=== PATIENT | female | born 1955 | race Caucasian/White ===

== ENCOUNTER → 2018-02-07 08:48 | Outpatient (CLI) | payer MEDICAID, SELFPAY ==
--- NOTE | 2018-02-07 08:54 | BI_ITS ---
MAMMOGRAPHY - BILATERAL SCREENING REASON FOR EXAM: Female, 62 years old. Routine annual screening examination. PERTINENT HISTORY: Non-contributory. TECHNIQUE: Digital bilateral breast cande (3D mammographic acquisition) in the CC and MLO projections. 2-D mediolateral oblique (MLO) and craniocaudad (CC) views of both breasts were obtained. CAD: Full Field Digital Mammography with Computer Added Detection was performed. COMPARISON: Comparison is made with prior study dated December 28, 2016 and December 18, 2015. FINDINGS: Breast Composition: There are scattered areas of fibroglandular density. There are no dominant masses or suspicious calcifications. Stable asymmetry of breast tissue where more breast tissue is seen in the right breast as compared to the left. Stable 4 mm benign-appearing lymph node in the inferior medial portion of the left breast. No other significant abnormalities are identified. There has been no significant change since the prior study. BI/SCREENING MAMM (CAD), BILAT IMPRESSION: Stable bilateral screening mammogram. Yearly follow-up mammogram recommended. (A) ASSESSMENT CATEGORY: BIRADS Category 2: Benign. A letter regarding these results will be sent to the patient by the facility within 30 days. Approximately 10% of breast cancers are not detected by mammography. A normal mammogram should not delay biopsy of a clinically suspicious abnormality. [id number] Electronically Signed: Chavo Larios MD at 10:47 EDT Tel [phone], Service support ,
== END ==
DX: Z12.31 Encounter for screening mammogram for malignant neoplasm of breast (principal)
CPT/HCPCS: 77063; 77067

== ENCOUNTER 2019-01-07 13:00 | Emergency (ER) | payer MEDICAID, SELFPAY ==
[2019-01-07 13:02] VITALS: BP 123/69; PULSE 90; RESP 14; TEMP 36.9; O2SAT 98; BMI 21.9
--- NOTE | 2019-01-07 13:17 | ED.VISSUMM ---
- ER Visit Summary Date of Service: 01/07/19 Chief Complaint: Right eye History of Present Illness: The patient is a 63 F who woke this morning with no complaints. Her family noticed that the medial aspect of her left eye was bright red. She went to urgent care and was referred to the emergency department. Patient denies any significant coughing sneezing straining or any known trauma. She does not wear corrective lenses or glasses. She states that she did not have any change in her vision until after she was told her eye was red. And now she states that she cannot describe what her vision changes just that it seems like something is on the medial aspect of her eye. There are no visual field cuts. She is not on blood thinners. Physical Examination: Afebrile vital signs are stable Gen: Well-nourished well-developed Head: Normocephalic atraumatic Eyes: Perrl EOMI there is no hyphema. There is a small subconjunctival hemorrhage just medial to the cornea. Funduscopic exam is normal. There is no other conjunctival injection or exudate seen. Anterior chamber is deep and quiet ENT: TMs clear no rhinorrhea moist mucous membranes Neck: Supple no lymphadenopathy no JVD nontender CVS: Regular rate rhythm no murmurs normal S1-S2 Respiratory: No distress clear to auscultation bilaterally chest nontender Abdomen: Soft nontender nondistended normal bowel sounds no masses Back: Nontender Extremity: Nontender no edema Skin: Normal color no rash Neuro: alert orientated ?3 CN II-XII intact normal strength sensation reflexes gait cerebellar Psych: Normal affect normal mood Test Results: Not indicated Emergency Department Course and Treatment: Patient be discharged home with supportive care. Return if worsening or concerns. Impression: 1. Left subconjunctival hemorrhage This note was generated with [employer] dictation software. It may contain incorrect words, spelling, and punctuation that were not noted in review of the chart prior to signing ED Disposition - Plan for ED Patient: Disposition: Home or Assisted Living Instructions: ED Eye Injury Subconj Hemorrhage Referrals: Eunice Mccarty [Primary Care Provider] - As Needed
--- NOTE | 2019-01-07 13:31 | ED.RN ---
DISCHARGE INSTRUCTIONS GIVEN TO AND REVIEWED WITH PATIENT, PATIENT DENIES QUESTIONS OR CONCERNS AND VOICES UNDERSTANDING OF DISCHARGE INSTRUCTIONS. PT AMBULATES OUT OF ROOM WITHOUT DIFFICULTY.
== END 2019-01-07 13:31 | disposition home or self-care (01) ==
PROVIDERS: Emergency Provider Emergency Medicine
DX: H11.32 Conjunctival hemorrhage, left eye (principal); E11.9 Type 2 diabetes mellitus without complications; I10 Essential (primary) hypertension; K21.9 Gastro-esophageal reflux disease without esophagitis; Z79.84 Long term (current) use of oral hypoglycemic drugs; Z79.899 Other long term (current) drug therapy
CPT/HCPCS: 99282

== ENCOUNTER 2019-02-16 08:40 | Emergency (ER) | payer MEDICAID, SELFPAY ==
[2019-02-16 08:42] VITALS: BP 115/68; PULSE 73; RESP 18; TEMP 35.9; O2SAT 98; BMI 20.9
--- NOTE | 2019-02-16 08:51 | CT_ITS ---
STUDY: CT BRAIN WITHOUT CONTRAST REASON FOR EXAM: Female, 63 years old. Neck pain and headache after trauma RADIATION DOSAGE (If Supplied By Facility): CTDIvol = ( 44.99 ) mGy, DLP = ( 779.24 ) mGycm TECHNIQUE: Transaxial CT imaging of the brain was performed without administration of intravenous contrast material. Individualized dose optimization techniques were used for this CT. COMPARISON: No relevant priors. FINDINGS: Normal soft tissue structures. Normal calvarium. Normal size ventricles and extra-axial spaces for the patient's age. Normal white matter tracts of the cerebral hemispheres. Normal basal ganglia and thalami. Normal brainstem. Normal cerebellum. There is no intracranial hemorrhage. There are no findings of an acute ischemic infarction. Normal visualized paranasal sinuses. CT/Brain/Head without Contrast IMPRESSION: Chronic involutional changes of the brain. No acute findings Electronically Signed: Jos Melendez MD at 10:15 EDT , Service support ,
--- NOTE | 2019-02-16 08:53 | CT_ITS ---
STUDY: CT CERVICAL SPINE WITHOUT CONTRAST REASON FOR EXAM: Female, 63 years old. Headache and neck pain after trauma RADIATION DOSAGE (If Supplied By Facility): CTDIvol = ( 16.74 ) mGy, DLP = ( 385.78 ) mGycm TECHNIQUE: High resolution transaxial imaging was performed without contrast material. Sagittal and coronal images were reconstructed. Individualized dose optimization techniques were used for this CT. COMPARISON: None FINDINGS: Normal craniovertebral junction. Normal anterior atlantoaxial articulation. Normal odontoid process. There is straightening of the normal cervical lordosis. There are sclerotic endplate changes throughout the C-spine. There is anatomic alignment of the cervical spine. No demonstrated fracture. Intervertebral disc space narrowing noted throughout the C-spine. No central canal stenosis, there is bilateral foraminal narrowing. Normal visualized soft tissue structures. No upper rib fracture or pneumothorax CT/Spine Cervical without Contras IMPRESSION: Multilevel degenerative changes, as described above. Electronically Signed: Jos Melendez MD at 10:23 EDT , Service support ,
--- NOTE | 2019-02-16 09:07 | ED.DCSUM_ITS ---
- ER Visit Summary Date of Service: 02/16/19 Chief Complaint: Nausea, vomiting, abdominal pain, neck pain History of Present Illness: The patient is a 63 F who presents with neck pain, nausea, and vomiting. Patient states that she was trying to throw something into a dumpster yesterday when the lid came down and hit her on top of the head. She developed neck pain yesterday afternoon. She will get for him this morning with nausea, vomiting, and diarrhea. She reports some mid abdominal pain. She reports chills but no fever. Past history significant for reflux disease, diabetes, high cholesterol, hypothyroidism. Physical Examination: Vital signs are unremarkable. Patient sitting upright in bed in no acute distress. She is nontoxic appearing. Head and neck examination reveals no obvious external sign of trauma. She does have mild C-spine tenderness. Heart is regular rate and rhythm. Lung sounds are clear. Abdomen is soft with no focal tenderness. Hypoactive bowel sounds are noted. Test Results: CBC is unremarkable. Chemistry studies are markable only for glucose of 188. LFTs and lipase normal. Urinalysis only significant for [address] head and C-spine show chronic changes but no acute findings. Emergency Department Course and Treatment: Patient was given IV fluids and Zofran. After completion of her CT images she is given a dose of IV Toradol. At this time patient is able to tolerate p.o. She does feel improved. She will be given Zofran for home. Treatment Plan: [] Disposition: Discharge Impression: 1. Vomiting, improved 2. Cervical strain This note was generated with Ale[employer] dictation software. It may contain incorrect words, spelling, and punctuation that were not noted in review of the chart prior to signing ED Disposition - Plan for ED Patient: Disposition: Home or Assisted Living Instructions: ED Nausea Vomiting, ED Sprain Strain Neck Prescriptions: Ondansetron [Zofran Odt] 4 mg PO Q8H PRN PRN #10 tablet PRN Reason: Nausea Ketorolac [Toradol] 10 mg PO Q6H PRN #12 tablet PRN Reason: Pain Referrals: [facility] Crys,Eunice Peralta [Primary Care Provider] - 1 Week
[2019-02-16 09:21] LABS: Absolute Lymphocyte Count 0.88 X10^3/ul (0.83-4.51); Absolute Neutrophil Count 7.5 X10^3/uL (2.0-7.7); Basophil# 0.01 X10^3/uL; Basophil% 0.1 % (0-1); Eosinophil# 0.06 X10^3/uL; Eosinophils% 0.7 % (0-5); Hematocrit 35.2 % (37-47); Lymphocyte # 0.88 X10^3/ul (4.0); Lymphocyte % 10.2 % (19-41); Mean Corp Hgb Conc 34.1 g/gl (32-36); Mean Corpuscular Hgb 30.7 pg (27.0-32.0); Mean Platelet Vol. 9.2 fl (6.2-12.0); Monocyte# 0.23 X10^3/uL; Monocyte% 2.7 % (0-10); Neutrophil # 7.45 X10^3/uL (2.7-7.7); Neutrophil % 86.1 % (47-70); POSITIVE COUNT NO; POSITIVE DIFFERENTIAL NO; POSITIVE MORPHOLOGY NO; Platelet Count 181 K/mm3 (150-450); RBC Distribution Width CV 11.7 % (11.6-14.6); RBC Distribution Width SD 38.2 fl (35.1-43.9); Red Blood Count 3.91 M/mm3 (4.2-5.4); White Blood Count 8.7 K/mm3 (4.4-11.0)
[2019-02-16 09:36] LABS: AST(SGOT) 23 U/L (15-37); Alanine Aminotransfer ALT/SGPT 21 U/L (13-56); Albumin, Serum 4.2 g/dL (3.2-5.0); Alkaline Phosphatase 107 U/L (45-117); Anion Gap 7 (5-15); BUN 17 mg/dL (7-18); Bilirubin, Direct 0.18 mg/dL (0.00-0.30); Calcium,Total 9.5 mg/dL (8.5-10.1); Chloride 99 mmol/L (98-107); Creatinine, Serum 1.06 mg/dL (0.55-1.02); EST Glomerular Filtration Rate 56 mL/min (>60); Est Glom Filt Rate - Afr Amer 67 mL/min (>60); Estimated Creatinine Clearance 48.88 ml/min; Globulin 3.4 g/dL (2.2-4.2); Glucose 188 mg/dL (74-106); Lipase 134 U/L (73-393); Potassium 4.2 mmol/L (3.5-5.1); Protein, Total 7.6 g/dL (6.4-8.2); Sodium Level 134 mmol/L (136-145)
[2019-02-16 09:53] LABS: Mucous, Urine 0 SEEN /hpf (<or=2+); Red Blood Cells-Urine 0 SEEN /hpf (0-5); White Blood Cells 0 SEEN /hpf (0-5)
[2019-02-16 10:02] LABS: Color, Urine Yellow (Yellow); Glucose, Dipstick Normal (Normal); Ketone-Dipstick 15 mg/dl (Negative); Leukocyte Esterase-Dipstick Negative /ul (Negative); Nitrite-Dipstick Negative (Negative); Occult Blood-Urine Negative /ul (Negative); Protein-Dipstick Negative (Negative); Urine Bilirubin Dipstick Negative (Negative); Urine Clarity Clear (Clear); Urine Urobilinogen Normal (Normal); Urine pH 6.5 (5.0 - 8.0)
[2019-02-16] MEDS: Ondansetron 4 MG/2 ML Vial IV (10:03)
[2019-02-16] MEDS: 0.9% Normal Saline 1,000 ML 150 ML IV (10:03)
[2019-02-16 10:09] LABS: Bacteria RARE /hpf (None Seen); Squamous Epithelial Cells - UA 0-5 SEEN /hpf (5-10)
[2019-02-16] MEDS: Ketorolac 30 MG/ML Syringe IV (10:44)
[2019-02-16 11:32] VITALS: BP 128/70; PULSE 65; RESP 17; O2SAT 100
--- NOTE | 2019-02-16 11:33 | ED.RN ---
IV DC'ED, CATHETER INTACT, SMALL GAUZE DRESSING PLACED. DISCHARGE INSTRUCTIONS GIVEN TO AND REVIEWED WITH PATIENT, PATIENT DENIES QUESTIONS OR CONCERNS AND VOICES UNDERSTANDING OF DISCHARGE INSTRUCTIONS. PT AMBULATES OUT OF ROOM WITHOUT DIFFICULTY.
== END 2019-02-16 11:33 | disposition home or self-care (01) ==
PROVIDERS: Emergency Provider Emergency Medicine
DX: R11.2 Nausea with vomiting, unspecified (principal); S16.1XXA Strain of muscle, fascia and tendon at neck level, initial encounter; W20.8XXA Other cause of strike by thrown, projected or falling object, initial encounter; Y93.9 Activity, unspecified; Y92.9 Unspecified place or not applicable; Y99.9 Unspecified external cause status; R19.7 Diarrhea, unspecified; R10.9 Unspecified abdominal pain; E11.9 Type 2 diabetes mellitus without complications; E78.00 Pure hypercholesterolemia, unspecified; E03.9 Hypothyroidism, unspecified; K21.9 Gastro-esophageal reflux disease without esophagitis; Z79.84 Long term (current) use of oral hypoglycemic drugs; Z79.899 Other long term (current) drug therapy
CPT/HCPCS: 70450; 72125; 80048; 80076; 81001; 83690; 85025; 96361; 96374; 96375; 99284; J7030; A4216; J2405

== ENCOUNTER → 2019-03-13 07:36 | Outpatient (CLI) | payer MEDICAID, SELFPAY ==
[2019-02-16 08:42] VITALS: BMI 20.9
--- NOTE | 2019-03-13 07:38 | BI_ITS ---
MAMMOGRAPHY - BILATERAL SCREENING REASON FOR EXAM: Female, 63 years old. Routine annual screening examination. PERTINENT HISTORY: Non-contributory. History of prior right breast aspiration. TECHNIQUE: Digital bilateral breast cande (3D mammographic acquisition) in the CC and MLO projections. 2-D mediolateral oblique (MLO) and craniocaudad (CC) views of both breasts were obtained. CAD: Full Field Digital Mammography with Computer Added Detection was performed. COMPARISON: Comparison is made with prior study dated February 07, 2018 and December 28, 2016. FINDINGS: Breast Composition: There are scattered areas of fibroglandular density. There are no dominant masses or suspicious calcifications. Stable asymmetry of breast tissue where more breast tissue is seen in the right breast as compared to the left side. Stable 4 mm well-defined nodular density in the inferior medial aspect of the left breast. No other significant abnormalities are identified. There has been no significant change since the prior study. BI/SCREENING MAMM (CAD), BILAT IMPRESSION: Stable bilateral screening mammogram. Yearly follow-up mammogram recommended. (A) ASSESSMENT CATEGORY: BIRADS Category 2: Benign. A letter regarding these results will be sent to the patient by the facility within 30 days. Approximately 10% of breast cancers are not detected by mammography. A normal mammogram should not delay biopsy of a clinically suspicious abnormality. [id number] Electronically Signed: Chavo Larios, at 10:02 EDT , Service support ,
== END ==
DX: Z12.31 Encounter for screening mammogram for malignant neoplasm of breast (principal)
CPT/HCPCS: 77063; 77067

== ENCOUNTER 2019-05-04 11:05 | Emergency (ER) | payer MEDICAID, SELFPAY ==
[2019-05-04 11:06] VITALS: BP 125/70; PULSE 73; RESP 16; TEMP 36.4; O2SAT 100; BMI 21.9
[2019-05-04 11:26] LABS: Bedside Glucose 199 mg/dL (70-110)
[2019-05-04 11:28] VITALS: TEMP 36.4
[2019-05-04 11:51] LABS: Absolute Lymphocyte Count 0.83 X10^3/ul (0.83-4.51); Absolute Neutrophil Count 10.2 X10^3/uL (2.0-7.7); Basophil# 0.02 X10^3/uL; Basophil% 0.2 % (0-1); Eosinophil# 0.05 X10^3/uL; Eosinophils% 0.4 % (0-5); Hematocrit 34.7 % (37-47); Hemoglobin 11.9 g/dl (12.0-15.0); Lymphocyte # 0.83 X10^3/ul (4.0); Lymphocyte % 7.1 % (19-41); Mean Corp Hgb Conc 34.3 g/gl (32-36); Mean Corpuscular Hgb 30.9 pg (27.0-32.0); Mean Corpuscular Volume 90.1 fL (81-99); Mean Platelet Vol. 9.3 fl (6.2-12.0); Monocyte# 0.46 X10^3/uL; Neutrophil # 10.23 X10^3/uL (2.7-7.7); Platelet Count 239 K/mm3 (150-450); RBC Distribution Width CV 11.5 % (11.6-14.6); RBC Distribution Width SD 36.8 fl (35.1-43.9); Red Blood Count 3.85 M/mm3 (4.2-5.4); White Blood Count 11.6 K/mm3 (4.4-11.0)
[2019-05-04 11:53] LABS: POSITIVE COUNT NO; POSITIVE DIFFERENTIAL NO; POSITIVE MORPHOLOGY NO
[2019-05-04] MEDS: 0.9% Normal Saline 1,000 ML 1000 ML IV (12:05)
[2019-05-04] MEDS: Ondansetron 4 MG/2 ML Vial IV ×2 (12:05→13:10)
[2019-05-04 12:08] VITALS: BP 116/65; PULSE 61; RESP 15; TEMP 36.4; O2SAT 95
[2019-05-04 12:09] LABS: AST(SGOT) 24 U/L (15-37); Alanine Aminotransfer ALT/SGPT 23 U/L (13-56); Albumin, Serum 4.1 g/dL (3.2-5.0); Alkaline Phosphatase 124 U/L (45-117); Anion Gap 7 (5-15); BUN 14 mg/dL (7-18); BUN/Creat Ratio 13.2 RATIO (10-20); Bilirubin, Direct 0.13 mg/dL (0.00-0.30); Calcium,Total 9.3 mg/dL (8.5-10.1); Chloride 102 mmol/L (98-107); Creatinine, Serum 1.06 mg/dL (0.55-1.02); EST Glomerular Filtration Rate 56 mL/min (>60); Est Glom Filt Rate - Afr Amer 67 mL/min (>60); Estimated Creatinine Clearance 44.35 ml/min; Globulin 3.6 g/dL (2.2-4.2); Glucose 221 mg/dL (74-106); Lipase 103 U/L (73-393); Potassium 3.9 mmol/L (3.5-5.1); Protein, Total 7.7 g/dL (6.4-8.2); Sodium Level 135 mmol/L (136-145)
--- NOTE | 2019-05-04 12:54 | ED.DCSUM_ITS ---
- ER Visit Summary Date of Service: 05/04/19 Chief Complaint: Vomiting diarrhea History of Present Illness: The patient is a 64 F who states she was in her usual state of health this morning. She went to work after about 30 minutes began to have nausea and then vomiting. She is also had several episodes of diarrhea. No fevers. She cannot stop vomiting. She is a diabetic. He denies abdominal distention or pain. Physical Examination: Afebrile vital signs stable Gen: Well-nourished well-developed Head: Normocephalic atraumatic Eyes: Perrl EOMI ENT: TMs clear no rhinorrhea moist mucous membranes Neck: Supple no lymphadenopathy no JVD nontender CVS: Regular rate rhythm no murmurs normal S1-S2 Respiratory: No distress clear to auscultation bilaterally chest nontender Abdomen: Soft nontender nondistended normal bowel sounds no masses Back: Nontender Extremity: Nontender no edema Skin: Normal color no rash Neuro: alert orientated ?3 CN II-XII intact normal strength sensation Test Results: 11.6 white count hemoglobin 11.9. Creatinine 1.06 glucose 221. Lipase 103 liver enzymes showed alk phos 124. Emergency Department Course and Treatment: Patient was treated with IV fluids and Zofran. She is given a p.o. challenge. I suspect that this is a viral illness. I will write for Zofran at home and suggest Imodium as needed. Impression: 1. Gastroenteritis This note was generated with Kann[employer] dictation software. It may contain incorrect words, spelling, and punctuation that were not noted in review of the chart prior to signing ED Disposition - Plan for ED Patient: Instructions: GASTROENTERITIS, Viral (6y-Adult) Prescriptions: Ondansetron [Zofran Odt] 4 mg PO Q6H PRN PRN #20 tab PRN Reason: Nausea Prescription Printed Referrals: [facility] Crys,Eunice Peralta [Primary Care Provider] - As Needed
[2019-05-04 13:11] VITALS: TEMP 36.4
== END 2019-05-04 13:54 | disposition home or self-care (01) ==
LOC: ED 11:50
PROVIDERS: Emergency Provider Emergency Medicine
DX: K52.9 Noninfective gastroenteritis and colitis, unspecified (principal); E11.9 Type 2 diabetes mellitus without complications; I10 Essential (primary) hypertension; K21.9 Gastro-esophageal reflux disease without esophagitis; Z79.84 Long term (current) use of oral hypoglycemic drugs; Z79.899 Other long term (current) drug therapy
CPT/HCPCS: 80048; 80076; 82962; 83690; 85025; 96361; 96374; 96376; 99283; J7030; A4216; J2405

== ENCOUNTER → 2019-10-16 08:58 | Outpatient (CLI) | payer MEDICAID, SELFPAY ==
--- NOTE | 2019-10-16 09:06 | BD_ITS ---
STUDY: DUAL ENERGY X-RAY ABSORPTIOMETRY / DXA REASON FOR EXAM: Female, 64 years old. 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 COMPARISON: None. FINDINGS: Lumbar Spine (L1-L4): g/cm2 (1.176) / T-score (0.1) / Z-score (1.6) Findings are suggestive of normal bone density with a low fracture risk. Left Femur Total: g/cm2 (1.003) / T-score (0.0) / Z-score (1.1) Left Femoral Neck: g/cm2 (1.049) / T-score (0.1) / Z-score (1.5) Right Femur Total: g/cm2 (0.957) / T-score (-0.4) / Z-score (0.8) Right Femoral Neck: g/cm2 (1.017) / T-score (-0.2) / Z-score (1.3) BD/Dexa Bone Density Study IMPRESSION: The patient is considered normal as outlined below according to World [employer] Organization (WHO) criteria with a low fracture risk. Reference Information: The T-score is the number of standard deviations above or below the standard which is normal for young adults at their peak bone mineral density. The World Health Organization (WHO) interprets the T-scores as follows: Above -1 Normal bone density Between -1 and -2.5 Osteopenia Equal to / or below -2.5 Osteoporosis As a practical clinical guideline, osteopenia may be graded as follows: Mild -1 through -1.5 Moderate -1.6 through -2.0 Severe -2.1 through -2.4 The Z-score is the number of standard deviations above or below age-matched controls. A Z-score of less than -1.5 would be considered abnormal. References: 1. NIH Osteoporosis and Related Bone Diseases http://www.osteo.org 2. International Society for Clinical Densitometry http://www.iscd.org 3. National Osteoporosis Foundation http://www.nof.org Electronically Signed: Chavo Larios, at 15:19 EST , Service support ,
== END ==
DX: Z78.0 Asymptomatic menopausal state (principal)
CPT/HCPCS: 77080

== ENCOUNTER → 2020-03-19 07:42 | Outpatient (CLI) | payer MEDICAID, SELFPAY ==
--- NOTE | 2020-03-19 07:43 | BI_ITS ---
MAMMOGRAPHY - BILATERAL SCREENING REASON FOR EXAM: Female, 64 years old. Routine annual screening examination. PERTINENT HISTORY: Non-contributory. TECHNIQUE: Digital bilateral breast mara (3D mammographic acquisition) in the CC and MLO projections. 2-D mediolateral oblique (MLO) and craniocaudad (CC) views of both breasts were obtained. CAD: Full Field Digital Mammography with Computer Added Detection was performed. COMPARISON: Comparison is made with prior examination dated March 13, 2019 and February 07, 2018. FINDINGS: Breast Composition: There are scattered areas of fibroglandular density. There are no dominant masses or suspicious calcifications. Stable asymmetry of breast tissue were more breast tissue is seen in the right breast as compared to the left side. Stable 4 mm well-defined nodule in the deep inferior medial aspect of the left breast. No other significant abnormalities are identified. There has been no significant change since the prior study. BI/SCREEN MAMM (CAD) W/MARA BILAT IMPRESSION: Stable bilateral screening mammogram. Yearly follow-up mammogram recommended. (A) ASSESSMENT CATEGORY: BIRADS Category 2: Benign. A letter regarding these results will be sent to the patient by the facility within 30 days. Approximately 10% of breast cancers are not detected by mammography. A normal mammogram should not delay biopsy of a clinically suspicious abnormality. [id number] Electronically Signed: Chavo Larios, at 9:12 EDT , Service support ,
== END ==
DX: Z12.31 Encounter for screening mammogram for malignant neoplasm of breast (principal)
CPT/HCPCS: 77063; 77067

== ENCOUNTER → 2020-09-23 07:34 | Outpatient (CLI) | payer MEDICARE, MEDICAID, SELFPAY ==
[2020-09-23 08:08] LABS: Hematocrit 38.1 % (37-47); Hemoglobin 12.4 g/dL (12.0-15.0)
[2020-09-23 08:26] LABS: Hemoglobin A1c 7.4 % (3.8-5.6)
[2020-09-23 08:34] LABS: ALB/GLOB Ratio 1.1 RATIO (0.9-2.4); AST(SGOT) 16 U/L (15-37); Alanine Aminotransfer ALT/SGPT 19 U/L (13-56); Alkaline Phosphatase 123 U/L (45-117); Anion Gap 3 (5-15); BUN 11 mg/dL (7-18); BUN/Creat Ratio 10.3 RATIO (10-20); Calcium,Total 9.4 mg/dL (8.5-10.1); Chloride 102 mmol/L (98-107); Cholesterol 221 mg/dL (200); Creatinine, Serum 1.07 mg/dL (0.55-1.02); EST Glomerular Filtration Rate 55 mL/min (>60); Est Glom Filt Rate - Afr Amer 66 mL/min (>60); Ferritin 172 ng/mL (8-252); Free T3 2.2 pg/mL (2.18-3.98); Globulin 3.7 g/dL (2.2-4.2); Glucose 164 mg/dL (74-106); High Density Lipoprotein 94 mg/dL; Potassium 4.1 mmol/L (3.5-5.1); Protein, Total 7.7 g/dL (6.4-8.2); Sodium Level 134 mmol/L (136-145); Thyroid Stim Hormone (TSH) 4.34 uIU/mL (0.358-3.74); Triglycerides 166 mg/dL; Very Low Density Lipoprotein 33 mg/dL (5-40)
[2020-09-23 08:48] LABS: Microalbumin,Random Urine 8.5 mg/L (NO RANGE EST.); Microalbumin:Creatinine Ratio 21.9 mg/g CRE (<30 mg/g CRE)
== END ==
DX: E11.9 Type 2 diabetes mellitus without complications (principal); D64.9 Anemia, unspecified; E03.9 Hypothyroidism, unspecified; E78.2 Mixed hyperlipidemia
CPT/HCPCS: 36415; 80053; 80061; 82043; 82570; 82728; 83036; 84443; 84481; 85014; 85018

== ENCOUNTER 2020-12-06 21:21 | Inpatient (IN) | payer MEDICARE, MEDICAID, SELFPAY ==
[2020-12-06 21:22] VITALS: BP 121/73; PULSE 74; RESP 16; TEMP 36; O2SAT 99; BMI 21.2
--- NOTE | 2020-12-06 21:39 | CT_ITS ---
STUDY: CT BRAIN WITHOUT CONTRAST REASON FOR EXAM: Female, 65 years old. DIZZINESS, N/V SINCE 1800 RADIATION DOSAGE (If Supplied By Facility): CTDIvol = ( 44.99 ) mGy, DLP = ( 745.49 ) mGycm TECHNIQUE: Transaxial CT imaging of the brain was performed without administration of intravenous contrast material. Individualized dose optimization techniques were used for this CT. COMPARISON: 02/16/2019 FINDINGS: Normal soft tissue structures. Normal calvarium. Normal size ventricles and extra-axial spaces for the patient''s age. Normal white matter tracts of the cerebral hemispheres. Normal basal ganglia and thalami. Normal brainstem. Normal cerebellum. There is no intracranial hemorrhage. There are no findings of an acute ischemic infarction. Normal visualized paranasal sinuses. CT/Brain/Head without Contrast IMPRESSION: Normal unenhanced CT scan of the brain. Electronically Signed: Osbaldo Rice MD at 22:53 EST , Service support ,
--- NOTE | 2020-12-06 21:39 | EKG12_ITS ---
Test Reason : DIZZINESS Blood Pressure : / mmHG Vent. Rate : 072 BPM Atrial Rate : 072 BPM P-R Int : 166 ms QRS Dur : 084 ms QT Int : 426 ms P-R-T Axes : 051 050 050 degrees QTc Int : 466 ms Normal sinus rhythm Normal ECG Confirmed by VAISHALI LORENZO, LIDIA ([id number]), news editor BLANCA DARDEN ([id number]) on 12/08/2020 12:21:45 P M Referred By: EVI Confirmed By:GLORIA TOM MD
--- NOTE | 2020-12-06 21:40 | CT_ITS ---
STUDY: CT ABDOMEN AND PELVIS WITH CONTRAST REASON FOR EXAM: Female, 65 years old. Abdominal PAIN N/V RADIATION DOSAGE (If Supplied By Facility): CTDIvol = ( 8.62 ) mGy, DLP = ( 766.70 ) mGycm TECHNIQUE: Transaxial images were obtained from the dome of the diaphragm to the symphysis pubis without oral contrast. IV 100mL Isovue-[id number] was administered. Sagittal and coronal images were reconstructed. Individualized dose optimization techniques were used for this CT. COMPARISON: 09/26/2016. FINDINGS: The visualized lung bases are unremarkable. The visualized portions of the heart are within normal limits. Normal liver. There are surgical clips in the gallbladder fossa consistent with a prior cholecystectomy. Normal spleen. Normal pancreas. Normal bilateral adrenal glands. Normal right kidney. Normal left kidney. Evaluation of the GI tract is limited by absence of oral contrast. Moderate hiatal hernia. Cannot exclude stomach wall thickening. No dilated loops of bowel or evidence for obstruction. Cannot exclude segmental thickening of the tobias of the small or large bowel. Cannot exclude enteritis or colitis. Moderate diffuse fecal retention. Diverticulosis without definite diverticulitis. Appendix within normal limits. Normal abdominal aorta. Normal inferior vena cava. Normal retroperitoneum. Normal urinary bladder. Normal visualized uterus. Normal abdominal wall. There are diffuse degenerative changes of the visualized lumbar spine. CT/Abdomen/Pelvis W IV Cont ONLY IMPRESSION: No definite acute or significant abnormality seen. Electronically Signed: Osbaldo Rice MD at 23:05 EST , Service support ,
[2020-12-06 21:48] LABS: Absolute Lymphocyte Count 2.28 X10^3/uL (0.83-4.51); Basophil# 0.09 X10^3/uL; Basophil% 0.7 % (0-1); Eosinophil# 0.22 X10^3/uL; Eosinophils% 1.7 % (0-5); Hematocrit 35.5 % (37-47); Hemoglobin 12.4 g/dL (12.0-15.0); Lymphocyte # 2.28 X10^3/ul (4.0); Lymphocyte % 17.2 % (19-41); Mean Corp Hgb Conc 34.9 g/dL (32-36); Mean Corpuscular Hgb 31.6 pg (27.0-32.0); Mean Corpuscular Volume 90.3 fL (81-99); Mean Platelet Vol. 9.3 fl (6.2-12.0); Monocyte# 0.55 X10^3/uL; Monocyte% 4.2 % (0-10); NRBC Flagged by Analyzer 0 % (0-5); Neutrophil # 9.99 X10^3/uL (2.7-7.7); Neutrophil % 75.5 % (47-70); Platelet Count 271 K/mm3 (150-450); RBC Distribution Width CV 11.1 % (11.6-14.6); RBC Distribution Width SD 36.8 fl (35.1-43.9); Red Blood Count 3.93 M/mm3 (4.2-5.4); White Blood Count 13.2 K/mm3 (4.4-11.0)
[2020-12-06] MEDS: Ondansetron 4 MG/2 ML Vial IV (21:54)
[2020-12-06] MEDS: 0.9% Normal Saline 1,000 ML 1000 ML IV (21:54)
[2020-12-06 22:03] LABS: ALB/GLOB Ratio 1.2 RATIO (0.9-2.4); AST(SGOT) 17 U/L (15-37); Alanine Aminotransfer ALT/SGPT 18 U/L (13-56); Albumin, Serum 4.2 g/dL (3.2-5.0); Alkaline Phosphatase 108 U/L (45-117); Anion Gap 9 (5-15); BUN 13 mg/dL (7-18); BUN/Creat Ratio 11.1 RATIO (10-20); Calcium,Total 10.1 mg/dL (8.5-10.1); Chloride 103 mmol/L (98-107); Creatinine, Serum 1.17 mg/dL (0.55-1.02); EST Glomerular Filtration Rate 49 mL/min (>60); Est Glom Filt Rate - Afr Amer 60 mL/min (>60); Globulin 3.4 g/dL (2.2-4.2); Glucose 266 mg/dL (74-106); Lipase 128 U/L (73-393); Potassium 3.7 mmol/L (3.5-5.1); Protein, Total 7.6 g/dL (6.4-8.2); Sodium Level 135 mmol/L (136-145)
--- NOTE | 2020-12-06 22:31 | RAD_ITS ---
STUDY: X-RAY CHEST REASON FOR EXAM: Female, 65 years old. PT C/O DIZZINESS, N/V SINCE 1800 TECHNIQUE: Single AP portable view of the chest. COMPARISON: None. FINDINGS: The lungs are clear and expanded. There is no demonstrated pleural abnormality. Normal size heart. Normal mediastinum and meri. Normal visualized pulmonary arteries. Normal visualized aortic arch and descending thoracic aorta. Normal visualized thoracic spine. Normal visualized ribs, clavicles, and shoulders. There is no demonstrated abnormality of the visualized soft tissue structures of the upper abdomen. RAD/Chest 1 View (Portable) IMPRESSION: Normal x-ray examination of the chest. Electronically Signed: Osbaldo Rice MD at 22:53 EST , Service support ,
[2020-12-06 23:17] LABS: Mucous, Urine 0 SEEN /hpf (<or=2+); Red Blood Cells-Urine 0 SEEN /hpf (0-5)
[2020-12-06 23:19] LABS: Color, Urine Yellow (Yellow); Glucose, Dipstick 250 mg/dl (Normal); Ketone-Dipstick 5 mg/dl (Negative); Leukocyte Esterase-Dipstick 500 /ul (Negative); Nitrite-Dipstick Negative (Negative); Occult Blood-Urine Negative /ul (Negative); Protein-Dipstick 15 mg/dl (Negative); Urine Bilirubin Dipstick Negative (Negative); Urine Clarity Clear (Clear); Urine Urobilinogen Normal (Normal); Urine pH 6.5 (5.0 - 8.0)
[2020-12-06] MEDS: Meclizine HCl 25 MG Tablet PO (23:25)
[2020-12-06 23:53] LABS: Amorphous Sediment RARE; Bacteria RARE /hpf (None Seen); Hyaline Cast 0-5 SEEN /lpf (0-5); Squamous Epithelial Cells - UA 0-5 SEEN /hpf (5-10); White Blood Cells 10-25 SEEN /hpf (0-5)
[2020-12-07] VITALS (11 sets, daily range): BP systolic 98–134; BP diastolic 61–79; PULSE 66–79; RESP 16–18; TEMP 36.4–36.7; O2SAT 93–100; BMI 24.5
--- NOTE | 2020-12-07 00:44 | HP.PCM_ITS ---
History of Present Illness Date of Admission: 12/07/20 Chief Complaint: nausea, dizziness, near syncope The patient is a 65 year old with a PMH as outlined including hypertension, type 2 diabetes mellitus and hyperlipidemia. She was admitted via the ED on 12/07/2020 with a complaint of dizziness, nausea and vomiting. Symptoms started at ~ 6pm on day of admission. She said she vomited several times, and also felt very nauseous. She also had dizziness and thought she was going to pass out. She denied any fever, chills, palpitations, chest pain, abdominal pain, or diarrhea. Review of systems otherwise negative. She denied any burning with urination or frequency of urination. She denied any abdominal pain when I reviewed her, though per ED documentation, she did tell the ED doctor she had pain in her right lower abdomen. Vitals showed temp of 96.8F, BP of 121/73, SC of 74 and RR of 16. She was saturating at 99% on room air. Chemistry showed Cr of 1.17, and sodium of 135. Initial troponin was negative, and CBC shosed Hb of 12.4, and wbc of 13.2 and platelets of 271. EKG showed no acute ST changes. UA showed leucocyte esterase of 500 and 10-25 wbc, though urine bacteria were rare. She is being admitted to be managed for near syncope due to UTI.[] Past Medical History Medical History: Medical History (Last Updated 03/15/18 @ 12:41 by Dinorah Cabrera) Arthritis M19.90 Diabetes E11.9 Thyroid disease E07.9 Allergies No Known Allergies Allergy (Verified 12/06/20 21:29) Home Medications: Ambulatory Orders Medication Instructions Recorded Ascorbic Acid [Vitamin C] 500 mg PO DAILY@0800 09/26/16 Cholecalciferol (VIT D3) [Vitamin 2,000 unit PO DAILY 09/26/16 D] Ferrous Sulfate 325 mg PO BID 09/26/16 Lisinopril [Zestril] 5 mg PO DAILY 09/26/16 Loratadine 10 mg PO DAILY 09/26/16 Pravastatin [Pravachol] 20 mg PO QHS 09/26/16 metFORMIN HCl [Glucophage] 500 mg PO BIDCM 09/26/16 Famotidine 40 mg PO DAILY 12/06/20 Gabapentin 300 mg PO QHS 02/13/21 Surgical History: Surgical History (Last Updated 03/15/18 @ 12:41 by Dinorah Cabrera) History of cholecystectomy Z90.49 History of tubal ligation Z98.51 Surgical History: cholecystectomy Psychiatric History: No pertinent psych hx [employer]TAIN History: No pertinent [employer]TAIN history Lives: With Family Smoking Status: Never smoker Alcohol: None Drugs: None Review of Systems Constitutional: Reports: Malaise, Weakness, Fatigue. Denies: Anorexia, Chills, Fever, Night Sweats HEENT: Denies: Head Aches, Sinus Congestion, Sinus Drainage Cardiovascular: Denies: Chest Pain, Chest Pressure, Chest Tightness, Palpitations Respiratory: Denies: Cough, Shortness of breath at rest, Sputum production Gastrointestinal: Denies: Abdominal Pain, Nausea, Vomiting Genitourinary: Denies: Dysuria Musculoskeletal: Denies: Joint Pain, Joint Tenderness Skin: Denies: Rash, Wounds Neurological: Denies: Numbness, Tingling, Focal weakness Psychiatric: Denies: Anxiety, Depression, Homicidal Ideations, Suicidal Ideations Hematologic/ Lymphatic: Denies: Easy Bruising, Easy Bleeding VTE Information - Inpt Only VTE Present on Admission: No VTE Pharm Prophylaxis ordered?: Yes - Physical Exam Vitals/I&O's: Vital Signs Temp Pulse Resp BP Pulse Ox 96.8 F L 74 16 121/73 H 99 12/06/20 21:22 12/06/20 21:22 12/06/20 21:22 12/06/20 21:22 12/06/20 21:22 Oxygen Delivery Method Room Air Weight: 124 lb Body Mass Index (BMI) 21.2 Finger Stick Blood Glucose 199 General: Alert, Oriented x3, Cooperative, No apparent distress, Lethargic HEENT: Atraumatic, PERRLA, EOMI, Normocephalic Oral: Dry Mucosa Neck: Supple, No JVD, Negative Carotid Bruits Lungs: Clear to auscultation, Normal air movement Cardiovascular: Regular rate, Regular Rhythm, Normal S1, Normal S2, No murmurs Abdomen: Bowel Sounds Present, Soft, Non Tender, Non-Distended, No Hepato- splenomegaly Extremities: No clubbing, No cyanosis, No edema, Capillary Refill Less than 3 Seconds Skin: No rashes Musculoskeletal: No Tenderness to Palpation of Joints or Extremities Lymphatic: No Cervical, Supraclavicular, or Inguinal Adenopathy Neurological: Cranial nerves II-XII grossly intact, Neuro grossly intact, Motor Exam 5/5 strength throughout Psych/Mental Status: Normal Affect, Appropriate, Alert and oriented to time, place, person, mood and affect Laboratory Results 12/06/20 21:35: WBC 13.2 H, RBC 3.93 L, Hgb 12.4, Hct 35.5 L, MCV 90.3, MCH 31.6, MCHC 34.9, RDW Std Deviation 36.8, RDW Coeff of Kyung 11.1 L, Plt Count 271, MPV 9.3, Immature Gran % (Auto) 0.700, Neut % (Auto) 75.5 H, Lymph % (Auto) 17.2 L, [place] % (Auto) 4.2, Eos % (Auto) 1.7, Baso % (Auto) 0.7, Absolute Neuts (auto) 10.0 H, Absolute Lymphs (auto) 2.28, Nucleated RBC % 0 12/06/20 21:35: Sodium 135 L, Potassium 3.7, Chloride 103, Carbon Dioxide 23.0, Anion Gap 9, BUN 13, Creatinine 1.17 H, Estim Creat Clear Calc 41.40, Est GFR (MDRD) Af Amer 60, Est GFR (MDRD) Non-Af 49 L, BUN/Creatinine Ratio 11.1, Glucose 266 H, Calcium 10.1, Total Bilirubin 0.40, AST 17, ALT 18, Alkaline Phosphatase 108, Troponin I < 0.015, Total Protein 7.6, Albumin 4.2, Globulin 3.4, Albumin/Globulin Ratio 1.2, Lipase 128 12/06/20 23:13: Urine Color Yellow, Urine Clarity Clear, Urine pH 6.5, Ur Specific [place] 1.010, Urine Protein 15 H, Urine Glucose (UA) 250 H, Urine Ketones 5 H, Urine Occult Blood Negative, Urine Nitrite Negative, Urine Bilirubin Negative, Urine Urobilinogen Normal, Ur Leukocyte Esterase 500 H, Urine RBC 0 SEEN, Urine WBC 10-25 SEEN, Ur Squamous Epith Cells 0-5 SEEN, Amorphous Sediment RARE, Urine Bacteria RARE, Hyaline Casts 0-5 SEEN, Urine Mucus 0 SEEN Diagnostic Data Brain CT 12/06/20 21:39 IMPRESSION: Normal unenhanced CT scan of the brain. Electronically Signed: Osbaldo Rice MD at 22:53 EST , Service support , Abdomen/Pelvis CT 12/06/20 21:40 IMPRESSION: No definite acute or significant abnormality seen. Electronically Signed: Osbaldo Rice MD at 23:05 EST , Service support , Chest X-Ray 12/06/20 22:31 IMPRESSION: Normal x-ray examination of the chest. Electronically Signed: Osbaldo Rice MD at 22:53 EST , Service support , Current Medications Ceftriaxone Sodium (Rocephin) 1 gm in 50 mls @ 100 mls/hr IV X1 ONE Stop: 12/07/20 01:10 Assessment/Plan All Active Problems (Last Updated 03/15/18 @ 12:41 by Dinorah Cabrera) Physical exam (Acute) 65 y/o admitted with a complaint of nausea, vomiting and near syncope #near syncope * admit to PCU with telemetry * check orthostatics * hydrate with IVF NS @ 150cc/hr * cause of near syncope is likely due to UTI. There is no evidence of arrythmia on EKG. * PT/OT consult * fall precautions * #UTI: will check urine culture. Started on IV ceftriaxone; will continue #Type 2 diabetes mellitus * on metformin. ISS. Seda OGDENS. * #Hyperlipidemia: on statin #Hypertension: on lisinopril DVT prophylaxis: lovenox Code status; full code * Patient and daughter counseled extensively about different types of CODE STATUS including full code, DNR CCA and DNR CCA. Patient elects to be full code. * Total cxcl-ic-vyat time 17 minutes. OBSV E&M: 18562 Initial observation care L3 Procedures: 02617 Advncd Care Plan 30 Min
[2020-12-07] MEDS: Ceftriaxone 1 GM/50 ML BAG IV ×2 (01:03→22:31)
--- NOTE | 2020-12-07 01:03 | ED.VIS.GEN ---
History of Present Illness Chief Complaint: Dizziness Informant: Patient Narrative: 65-year-old female with past medical history of hypertension, diabetes, hyperlipidemia presents with dizziness and vomiting. States it began approximately 2 to 3 hours ago. States that she feels like she is going to pass out. States he gets sweaty before this happens. Denies any chest pain, shortness of breath, headache, vision change, neck pain. States that she is having some pain in her right abdomen. States it is aching and intermittent. Denies any urinary symptoms other than some slightly increased frequency. Denies any vaginal discharge or bleeding. Past Medical History - Allergies and Home Meds Allergies/Adverse Reactions: Allergies No Known Allergies Allergy (Verified 12/06/20 21:29) Prior records reviewed: Yes Past Medical History: - - HTN, HLD, and DMII Surgical History: noncontributory Lives: With Family Smoking Status: Never smoker Alcohol: None Drugs: None Review of Systems General: Denies: Chills, Fever, Sweats Eyes: Denies: Visual changes - bilaterally, Diplopia ENT: Denies: Rhinorrhea, Sore throat Cardiovascular: Denies: Chest pain, Palpitations Respiratory: Denies: Dyspnea, Cough, Dyspnea on exertion Gastrointestinal: Reports: Abdominal pain, Nausea, Vomiting. Denies: Diarrhea, Melena, Hematochezia Genitourinary: Denies: Dysuria, Hematuria, Frequency Musculoskeletal: Denies: Back pain, Extremity Pain Skin: Denies: Rash, Wounds Neurological: Reports: - - dizziness. Denies: Headache, Weakness, Numbness Physical Exam Vital Signs/Narrative: Vital Signs Temp Pulse Resp BP Pulse Ox 12/06/20 21:22 96.8 F L 74 16 121/73 H 99 General: Well nourished, Well developed, No Acute Distress Head: Normocephalic, Atraumatic Eyes: Perrl, EOMI ENT: Moist mucous membranes, No rhinorrhea Neck: Supple, Nontender Cardiovascular: Regular rate, Regular rhythm, No murmurs Respiratory: No distress, CTA bilaterally, Chest nontender Abdomen: Soft, Nontender, Nondistended, Normal bowel sounds Back: Nontender, Normal Inspection Extremities: Nontender, No edema Skin: Normal color, No rash Neurological: Alert, Oriented x3, Cranial nerves II-XII grossly intact, Normal Strength, Normal Sensation Psychological: Normal affect, Normal Mood Diagnostic/Tx/Re-eval Chest X-Ray - ED: 1 View, Read by ED Physician, Read by Radiologist, Normal Clinical Impression(s) from Imaging Studies Brain CT 12/06/20 21:39 IMPRESSION: Normal unenhanced CT scan of the brain. Electronically Signed: Osbaldo Rice MD at 22:53 EST , Service support , Abdomen/Pelvis CT 12/06/20 21:40 IMPRESSION: No definite acute or significant abnormality seen. Electronically Signed: Osbaldo Rice MD at 23:05 EST , Service support , Chest X-Ray 12/06/20 22:31 IMPRESSION: Normal x-ray examination of the chest. Electronically Signed: Osbaldo Rice MD at 22:53 EST , Service support , Laboratory Data 12/06/20 12/06/20 12/06/20 21:35 21:35 23:13 WBC 13.2 H RBC 3.93 L Hgb 12.4 Hct 35.5 L MCV 90.3 MCH 31.6 MCHC 34.9 RDW Std Deviation 36.8 RDW Coeff of [place]ung 11.1 L Plt Count 271 MPV 9.3 Immature Gran % (Auto) 0.700 Neut % (Auto) 75.5 H Lymph % (Auto) 17.2 L [place] % (Auto) 4.2 Eos % (Auto) 1.7 Baso % (Auto) 0.7 Absolute Neuts (auto) 10.0 H Absolute Lymphs (auto) 2.28 Nucleated RBC % 0 Sodium 135 L Potassium 3.7 Chloride 103 Carbon Dioxide 23.0 Anion Gap 9 BUN 13 Creatinine 1.17 H Estim Creat Clear Calc 41.40 Est GFR (MDRD) Af Amer 60 Est GFR (MDRD) Non-Af 49 L BUN/Creatinine Ratio 11.1 Glucose 266 H Calcium 10.1 Total Bilirubin 0.40 AST 17 ALT 18 Alkaline Phosphatase 108 Troponin I < 0.015 Total Protein 7.6 Albumin 4.2 Globulin 3.4 Albumin/Globulin Ratio 1.2 Lipase 128 Urine Color Yellow Urine Clarity Clear Urine pH 6.5 Ur Specific [place] 1.010 Urine Protein 15 H Urine Glucose (UA) 250 H Urine Ketones 5 H Urine Occult Blood Negative Urine Nitrite Negative Urine Bilirubin Negative Urine Urobilinogen Normal Ur Leukocyte Esterase 500 H Urine RBC 0 SEEN Urine WBC 10-25 SEEN Ur Squamous Epith Cells 0-5 SEEN Amorphous Sediment RARE Urine Bacteria RARE Hyaline Casts 0-5 SEEN Urine Mucus 0 SEEN - Medical Decision Making Patient appears well and nontoxic. Patient having intermittent vomiting. Patient given 1 L of normal saline as well as Zofran. Somewhat improved. Urine shows evidence of infection. Patient was given Rocephin. Scan of the brain negative. CT of the abdomen pelvis negative. Chest x-ray interpreted by myself shows no evidence of infiltrate or volume overload. Lab work fairly within normal limits. Troponin negative. EKG nonischemic. Patient was given meclizine with concern for possible vertigo. This did somewhat improve her but she continues to have these episodes where she gets diaphoretic and presyncopal. For that reason patient will be admitted for further treatment evaluation. Patient will be given Valium. Stable at time of admission. Impression: 1. Intractable vertigo 2. UTI ED Disposition - Plan for ED Patient: Disposition: Acute Care [facility]
[2020-12-07] MEDS: diazePAM 5 MG Tablet PO (01:05)
[2020-12-07] MEDS: 0.9% Normal Saline 1,000 ML 125 ML IV ×2 (02:58→10:59)
[2020-12-07 06:44] LABS: Absolute Lymphocyte Count 1.35 X10^3/uL (0.83-4.51); Absolute Neutrophil Count 5.1 X10^3/uL (2.0-7.7); Basophil# 0.04 X10^3/uL; Basophil% 0.6 % (0-1); Eosinophil# 0.02 X10^3/uL; Eosinophils% 0.3 % (0-5); Hematocrit 32.6 % (37-47); Hemoglobin 11.1 g/dL (12.0-15.0); Lymphocyte # 1.35 X10^3/ul (4.0); Lymphocyte % 19.9 % (19-41); Mean Corpuscular Hgb 31.3 pg (27.0-32.0); Mean Corpuscular Volume 91.8 fL (81-99); Mean Platelet Vol. 9.5 fl (6.2-12.0); Monocyte# 0.27 X10^3/uL; NRBC Flagged by Analyzer 0 % (0-5); Neutrophil # 5.06 X10^3/uL (2.7-7.7); Neutrophil % 74.6 % (47-70); Platelet Count 244 K/mm3 (150-450); RBC Distribution Width CV 11.3 % (11.6-14.6); RBC Distribution Width SD 38.4 fl (35.1-43.9); Red Blood Count 3.55 M/mm3 (4.2-5.4); White Blood Count 6.8 K/mm3 (4.4-11.0)
--- NOTE | 2020-12-07 06:57 | PCS.PANDOC ---
PANDEMIC DOCUMENTATION INITIATED: Date: 12/07/20 Time: 0090
[2020-12-07 06:58] LABS: Anion Gap 6 (5-15); BUN 10 mg/dL (7-18); BUN/Creat Ratio 9.7 RATIO (10-20); Chloride 105 mmol/L (98-107); Creatinine, Serum 1.03 mg/dL (0.55-1.02); EST Glomerular Filtration Rate 57 mL/min (>60); Est Glom Filt Rate - Afr Amer 69 mL/min (>60); Estimated Creatinine Clearance 45.04 ml/min; Glucose 234 mg/dL (74-106); Potassium 4.1 mmol/L (3.5-5.1); Sodium Level 137 mmol/L (136-145)
[2020-12-07 07:00] LABS: Bedside Glucose 227 mg/dL (70-110)
[2020-12-07] MEDS: Ondansetron 4 MG/2 ML Vial IV (09:07)
[2020-12-07] MEDS: 0.9% Saline Lock 10 ML Syringe IV ×2 (09:07→22:31)
[2020-12-07] MEDS: Famotidine 20 MG Tablet 40 MG PO (09:53)
[2020-12-07] MEDS: Loratadine 10 MG Tablet PO (09:53)
[2020-12-07] MEDS: Ferrous Sulfate 325 MG Tablet PO ×2 (09:53→16:38)
[2020-12-07] MEDS: Enoxaparin 40 MG/0.4 ML Syringe SC (09:53)
[2020-12-07] MEDS: Lisinopril 5 MG Tablet PO (09:53)
[2020-12-07] MEDS: Ascorbic Acid 500 MG Tablet PO (09:53)
[2020-12-07] MEDS: Insulin Lispro 100 UNIT/ML INSULN.PEN SC ×3 (11:42→21:41)
[2020-12-07 11:46] LABS: Bedside Glucose 174 mg/dL (70-110)
--- NOTE | 2020-12-07 12:57 | PCM.PROGNOTE ---
Subjective: Patient seen and examined. Denies further lightheadedness, dizziness, presyncope. Patient states episode of presyncope occurred during episode of nausea/vomiting. Patient states she has this intermittently as she feels food gets stuck mid abdomen. She denies swallowing difficulty however she states she can feel food get stuck as it goes down. - Physical Exam Vitals/I&O's: Vital Signs Temp Pulse Resp BP Pulse Ox 97.9 F 70 18 134/66 H 96 12/07/20 09:48 12/07/20 09:48 12/07/20 09:48 12/07/20 09:48 12/07/20 09:48 Oxygen Delivery Method Room Air Weight: 138 lb 7.205 oz Body Mass Index (BMI) 24.5 Finger Stick Blood Glucose 199 Orthostatic Vital Signs Start: 12/07/20 02:40 Freq: q24h Status: Active Protocol: Activity Type Activity Date Activity User E-Sign Co-Sign Detail Recorded Client Recorded Date Recorded By Document 12/07/20 02:40 MY [id number] 12/07/20 06:29 MY 12/07/20 02:40 Orthostatic Vitals Standing -Blood Pressure (90/60-120/80) 114/70 -Extremity Use Right Arm -Pulse Rate (60-100) 78 Sitting -Blood Pressure (90/60-120/80) 119/67 -Extremity Use Right Arm -Pulse Rate (60-100) 74 Lying -Blood Pressure (90/60-120/80) 108/61 -Extremity Use Right Arm -Pulse Rate (60-100) 69 Intake and Output for Last 24 Hours 12/05/20 12/06/20 12/07/20 23:59 23:59 23:59 Intake Total 2350 / 2350 Balance 2350 / 2350 General: Alert, Oriented x3, Cooperative HEENT: Atraumatic, PERRLA, EOMI, Normocephalic Neck: Supple, No JVD, Negative Carotid Bruits Lungs: Clear to auscultation, Normal air movement Cardiovascular: Regular rate, No murmurs Abdomen: Bowel Sounds Present, Soft, Non Tender, Non-Distended Extremities: No clubbing, No cyanosis, No edema, Capillary Refill Less than 3 Seconds Skin: No rashes, No breakdown Musculoskeletal: No Tenderness to Palpation of Joints or Extremities Neurological: Cranial nerves II-XII grossly intact, Neuro grossly intact Psych/Mental Status: Normal Affect, Appropriate Laboratory Results 12/06/20 21:35: WBC 13.2 H, RBC 3.93 L, Hgb 12.4, Hct 35.5 L, MCV 90.3, MCH 31.6, MCHC 34.9, RDW Std Deviation 36.8, RDW Coeff of Kyung 11.1 L, Plt Count 271, MPV 9.3, Immature Gran % (Auto) 0.700, Neut % (Auto) 75.5 H, Lymph % (Auto) 17.2 L, [place] % (Auto) 4.2, Eos % (Auto) 1.7, Baso % (Auto) 0.7, Absolute Neuts (auto) 10.0 H, Absolute Lymphs (auto) 2.28, Nucleated RBC % 0 12/06/20 21:35: Sodium 135 L, Potassium 3.7, Chloride 103, Carbon Dioxide 23.0, Anion Gap 9, BUN 13, Creatinine 1.17 H, Estim Creat Clear Calc 41.40, Est GFR (MDRD) Af Amer 60, Est GFR (MDRD) Non-Af 49 L, BUN/Creatinine Ratio 11.1, Glucose 266 H, Calcium 10.1, Total Bilirubin 0.40, AST 17, ALT 18, Alkaline Phosphatase 108, Troponin I < 0.015, Total Protein 7.6, Albumin 4.2, Globulin 3.4, Albumin/Globulin Ratio 1.2, Lipase 128 12/06/20 23:13: Urine Color Yellow, Urine Clarity Clear, Urine pH 6.5, Ur Specific [place] 1.010, Urine Protein 15 H, Urine Glucose (UA) 250 H, Urine Ketones 5 H, Urine Occult Blood Negative, Urine Nitrite Negative, Urine Bilirubin Negative, Urine Urobilinogen Normal, Ur Leukocyte Esterase 500 H, Urine RBC 0 SEEN, Urine WBC 10-25 SEEN, Ur Squamous Epith Cells 0-5 SEEN, Amorphous Sediment RARE, Urine Bacteria RARE, Hyaline Casts 0-5 SEEN, Urine Mucus 0 SEEN 12/07/20 05:51: WBC 6.8, RBC 3.55 L, Hgb 11.1 L, Hct 32.6 L, MCV 91.8, MCH 31.3, MCHC 34.0, RDW Std Deviation 38.4, RDW Coeff of Kyung 11.3 L, Plt Count 244, MPV 9.5, Immature Gran % (Auto) 0.600, Neut % (Auto) 74.6 H, Lymph % (Auto) 19.9, [place] % (Auto) 4.0, Eos % (Auto) 0.3, Baso % (Auto) 0.6, Absolute Neuts (auto) 5.1, Absolute Lymphs (auto) 1.35, Nucleated RBC % 0 12/07/20 05:51: Sodium 137, Potassium 4.1, Chloride 105, Carbon Dioxide 26.0, Anion Gap 6, BUN 10, Creatinine 1.03 H, Estim Creat Clear Calc 45.04, Est GFR (MDRD) Af Amer 69, Est GFR (MDRD) Non-Af 57 L, BUN/Creatinine Ratio 9.7 L, Glucose 234 H, Calcium 9.0 12/07/20 06:35: POC Glucose 227 H 12/07/20 11:41: POC Glucose 174 H Current Medications Acetaminophen (Acetaminophen 325 Mg Tablet) 650 mg PO Q6H PRN PRN PRN Reason: Pain Score 1-10/Temp > 100.7 F Ascorbic Acid (Ascorbic Acid 500 Mg Tablet) 500 mg PO DAILY@0800 [facility] Last Admin: 12/07/20 09:53 Dose: 500 mg Documented by: Cholecalciferol (Cholecalciferol (Vit D3) 1,000 Unit (25mcg)) 2,000 unit PO DAILY [facility] Last Admin: 12/07/20 09:53 Dose: 2,000 unit Documented by: Enoxaparin Sodium (Enoxaparin 40 Mg/0.4 Ml Syringe) 40 mg SC DAILY [facility] Last Admin: 12/07/20 09:53 Dose: 40 mg Documented by: Famotidine (Famotidine 20 Mg Tablet) 40 mg PO DAILY [facility] Last Admin: 12/07/20 09:53 Dose: 40 mg Documented by: Ferrous Sulfate (Ferrous Sulfate 325 Mg Tablet) 325 mg PO BIDCM [facility] Last Admin: 12/07/20 09:53 Dose: 325 mg Documented by: Gabapentin (Gabapentin 300 Mg Capsule) 300 mg PO QHS [facility] Sodium Chloride () 1,000 mls @ 125 mls/hr IV .Q8H [facility] Stop: 12/07/20 18:28 Last Admin: 12/07/20 10:59 Dose: 125 mls/hr Documented by: Ceftriaxone Sodium (Rocephin) 1 gm in 50 mls @ 100 mls/hr IV Q24H [facility] Insulin Human Lispro (Insulin Lispro 100 Unit/Ml Insuln.Pen) 0 unit SC ACHS [facility]; Protocol Last Admin: 12/07/20 11:42 Dose: 1 u Documented by: Lisinopril (Lisinopril 5 Mg Tablet) 5 mg PO DAILY [facility] Last Admin: 12/07/20 09:53 Dose: 5 mg Documented by: Loratadine (Loratadine 10 Mg Tablet) 10 mg PO DAILY [facility] Last Admin: 12/07/20 09:53 Dose: 10 mg Documented by: Metformin HCl (Metformin Hcl 500 Mg Tablet) 500 mg PO BIDCM [facility] Last Admin: 12/07/20 09:55 Dose: Not Given Documented by: Morphine Sulfate (Morphine 2 Mg/Ml Syringe) 2 mg IV Q3H PRN PRN PRN Reason: Pain Score 6-10 Ondansetron HCl (Ondansetron 4 Mg/2 Ml Vial) 4 mg IV Q8H PRN PRN PRN Reason: NAUSEA/VOMITING Last Admin: 12/07/20 09:07 Dose: 4 mg Documented by: Oxycodone HCl (Oxycodone 5 Mg Tablet) 5 mg PO Q4H PRN PRN PRN Reason: Pain Score 4-5 Pravastatin Sodium (Pravastatin 20 Mg Tablet) 20 mg PO QHS [facility] Sodium Chloride (0.9% Saline Lock 10 Ml Syringe) 10 - 40 ml IV UD PRN PRN Reason: SALINE FLUSH Last Admin: 12/07/20 09:07 Dose: 10 ml Documented by: Medical Necessity - Tobacco Use Smoking Status: Never smoker Assessment/Plan All Active Problems (Last Updated 03/15/18 @ 12:41 by Dinorah Cabrera) Physical exam (Acute) 1. Near syncope, suspect vasovagal secondary to episode of nausea/vomiting. Orthostatic vitals negative. Troponin negative. 2. Recurrent nausea/vomiting-CT of abdomen on admission shows moderate hiatal hernia. Consult speech therapy. Patient feels food gets stuck at a certain point after swallowing. Plan for barium swallow in a.m. 3. Acute cystitis-continue IV Rocephin pending culture. 4. Type 2 diabetes mellitus-on Metformin. Accu-Cheks with sliding scale insulin. 5. Hypertension-stable, continue lisinopril. 6. Hyperlipidemia-continue statin. DVT prophylaxis- Lovenox sc This patient was seen by GABRIEL Abbasi under the supervision of Dr. Jorge.
[2020-12-07 16:56] LABS: Bedside Glucose 164 mg/dL (70-110)
[2020-12-07] MEDS: Acetaminophen 325 MG Tablet 650 MG PO (18:33)
[2020-12-07] MEDS: Gabapentin 300 MG Capsule PO (21:41)
[2020-12-07] MEDS: Pravastatin 20 MG Tablet PO (21:41)
[2020-12-07 23:06] LABS: Bedside Glucose 178 mg/dL (70-110)
[2020-12-08 03:00] VITALS: PULSE 56
[2020-12-08 03:45] VITALS: BP 110/66; PULSE 62; RESP 16; TEMP 36.4; O2SAT 96
[2020-12-08 06:28] LABS: Hematocrit 33.6 % (37-47); Mean Corp Hgb Conc 32.7 g/dL (32-36); Mean Corpuscular Hgb 31.3 pg (27.0-32.0); Mean Corpuscular Volume 95.7 fL (81-99); Platelet Count 208 K/mm3 (150-450); RBC Distribution Width CV 11.9 % (11.6-14.6); RBC Distribution Width SD 41.1 fl (35.1-43.9); Red Blood Count 3.51 M/mm3 (4.2-5.4)
[2020-12-08 06:57] LABS: Anion Gap 5 (5-15); BUN 7 mg/dL (7-18); BUN/Creat Ratio 7.5 RATIO (10-20); Calcium,Total 8.6 mg/dL (8.5-10.1); Chloride 110 mmol/L (98-107); Creatinine, Serum 0.93 mg/dL (0.55-1.02); EST Glomerular Filtration Rate 64 mL/min (>60); Est Glom Filt Rate - Afr Amer 78 mL/min (>60); Estimated Creatinine Clearance 49.89 ml/min; Glucose 178 mg/dL (74-106); Sodium Level 141 mmol/L (136-145)
[2020-12-08 07:00] LABS: Bedside Glucose 176 mg/dL (70-110)
--- NOTE | 2020-12-08 07:00 | RAD_ITS ---
STUDY: X-RAY - ESOPHAGUS (BARIUM SWALLOW) WITH FLUOROSCOPY REASON FOR EXAM: Female, 65 years old. DIFFICULTY SWALLOWING DISTALLY TECHNIQUE: 19 view(s) of the esophagus were obtained following swallowing of barium. FLUOROSCOPY TIME (if supplied): (0:35) minutes/seconds COMPARISON: None. FINDINGS: There is no demonstrated esophageal foreign body. There is a moderate-sized sliding hiatal hernia. 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 The patient ingested a 12 mm tablet of barium. The tablet is trapped at the gastroesophageal junction. Correlation with endoscopy is recommended. There is atherosclerotic calcification of the aortic arch with tortuosity of the descending aorta. Normal visualized pulmonary parenchyma. Normal visualized osseous structures of the thorax. RAD/Esophagus Dual Contrast IMPRESSION: Moderate sized sliding hiatal hernia with the weblike stenosis at the gastroesophageal junction. There is trapping of the ingested 12 mm tablet of barium. Endoscopic correlation is recommended. Electronically Signed: Chavo Larios MD at 9:11 EST , Service support ,
[2020-12-08 07:02] VITALS: PULSE 59
[2020-12-08 09:20] VITALS: BP 123/64; PULSE 65; RESP 18; TEMP 36.4; O2SAT 99
[2020-12-08] MEDS: Ascorbic Acid 500 MG Tablet PO (09:21)
[2020-12-08] MEDS: Famotidine 20 MG Tablet 40 MG PO (09:21)
[2020-12-08] MEDS: Lisinopril 5 MG Tablet PO (09:21)
[2020-12-08] MEDS: Loratadine 10 MG Tablet PO (09:21)
[2020-12-08] MEDS: Enoxaparin 40 MG/0.4 ML Syringe SC (09:21)
[2020-12-08] MEDS: Ferrous Sulfate 325 MG Tablet PO ×2 (09:21→16:36)
--- NOTE | 2020-12-08 10:34 | CASEMGMT ---
This RN CM to room with SWANN form at this time, explanation done-pt/family voice understanding, and pt signs SWANN form at this time. Original to chart and copy to pt at this time. Pt voices no further questions/concerns/needs at this time. SStaten MAYRA CM
[2020-12-08] MEDS: Insulin Lispro 100 UNIT/ML INSULN.PEN SC ×2 (11:05→22:36)
[2020-12-08 11:10] LABS: Bedside Glucose 246 mg/dL (70-110)
--- NOTE | 2020-12-08 11:38 | DCINST_ITS ---
Allergies/Adverse Reactions: Allergies No Known Allergies Allergy (Verified 12/06/20 21:29) Medications to take at Discharge Ascorbic Acid [Vitamin C] 500 mg PO DAILY@0800 09/26/16 Cholecalciferol (VIT D3) [Vitamin D] 2,000 unit PO DAILY 09/26/16 Ferrous Sulfate 325 mg PO BID 09/26/16 Lisinopril [Zestril] 5 mg PO DAILY 09/26/16 Loratadine 10 mg PO DAILY 09/26/16 Pravastatin [Pravachol] 20 mg PO QHS 09/26/16 metFORMIN HCl [Glucophage] 500 mg PO BIDCM 09/26/16 Famotidine 40 mg PO DAILY 12/06/20 Gabapentin 300 mg PO QHS 12/06/20 [facility] - Test Results: Test results from this visit will be discussed in further detail at your follow- up appointment, if applicable.
--- NOTE | 2020-12-08 12:38 | PCM.PROGNOTE ---
Subjective: Patient seen and examined. Denies further lightheadedness, presyncope. Underwent barium swallow this morning which showed moderate sized hiatal hernia with weblike stenosis at the gastroesophageal junction. There was trapping of ingested 12 mm tablets of barium. Discussed with general surgery, plan for scope tomorrow. - Physical Exam Vitals/I&O's: Vital Signs Temp Pulse Resp BP Pulse Ox 97.6 F L 65 18 123/64 H 99 12/08/20 09:20 12/08/20 09:20 12/08/20 09:20 12/08/20 09:20 12/08/20 09:20 Oxygen Delivery Method Room Air Weight: 138 lb 7.205 oz Body Mass Index (BMI) 24.5 Finger Stick Blood Glucose 199 Intake and Output for Last 24 Hours 12/06/20 12/07/20 12/08/20 23:59 23:59 23:59 Intake Total 3640 / 3760 120 / 120 Balance 3640 / 3760 120 / 120 General: Alert, Oriented x3, Cooperative HEENT: Atraumatic, PERRLA, EOMI, Normocephalic Neck: Supple, No JVD, Negative Carotid Bruits Lungs: Clear to auscultation, Normal air movement Cardiovascular: Regular rate, No murmurs Abdomen: Bowel Sounds Present, Soft, Non Tender Extremities: No clubbing, No cyanosis, No edema, Capillary Refill Less than 3 Seconds Skin: No rashes, No breakdown Musculoskeletal: No Tenderness to Palpation of Joints or Extremities Neurological: Cranial nerves II-XII grossly intact, Neuro grossly intact Psych/Mental Status: Normal Affect, Appropriate Microbiology Past 72 Hours 12/06/20 23:13 Urine, Clean Catch Urine Culture - Final Mixed Gram Pos & Gram Neg Org Laboratory Results 12/07/20 16:37: POC Glucose 164 H 12/07/20 21:36: POC Glucose 178 H 12/08/20 06:04: WBC 5.0, RBC 3.51 L, Hgb 11.0 L, Hct 33.6 L, MCV 95.7, MCH 31.3, MCHC 32.7, RDW Std Deviation 41.1, RDW Coeff of Kyung 11.9, Plt Count 208, MPV 9.0 12/08/20 06:04: Sodium 141, Potassium 4.0, Chloride 110 H, Carbon Dioxide 26.0, Anion Gap 5, BUN 7, Creatinine 0.93, Estim Creat Clear Calc 49.89, Est GFR (MDRD) Af Amer 78, Est GFR (MDRD) Non-Af 64, BUN/Creatinine Ratio 7.5 L, Glucose 178 H, Calcium 8.6 12/08/20 06:36: POC Glucose 176 H 12/08/20 11:05: POC Glucose 246 H Current Medications Acetaminophen (Acetaminophen 325 Mg Tablet) 650 mg PO Q6H PRN PRN PRN Reason: Pain Score 1-10/Temp > 100.7 F Last Admin: 12/07/20 18:33 Dose: 650 mg Documented by: Ascorbic Acid (Ascorbic Acid 500 Mg Tablet) 500 mg PO DAILY@0800 [facility] Last Admin: 12/08/20 09:21 Dose: 500 mg Documented by: Cholecalciferol (Cholecalciferol (Vit D3) 1,000 Unit (25mcg)) 2,000 unit PO DAILY [facility] Last Admin: 12/08/20 09:21 Dose: 2,000 unit Documented by: Enoxaparin Sodium (Enoxaparin 40 Mg/0.4 Ml Syringe) 40 mg SC DAILY [facility] Last Admin: 12/08/20 09:21 Dose: 40 mg Documented by: Famotidine (Famotidine 20 Mg Tablet) 40 mg PO DAILY [facility] Last Admin: 12/08/20 09:21 Dose: 40 mg Documented by: Ferrous Sulfate (Ferrous Sulfate 325 Mg Tablet) 325 mg PO BIDCM [facility] Last Admin: 12/08/20 09:21 Dose: 325 mg Documented by: Gabapentin (Gabapentin 300 Mg Capsule) 300 mg PO QHS [facility] Last Admin: 12/07/20 21:41 Dose: 300 mg Documented by: Ceftriaxone Sodium (Rocephin) 1 gm in 50 mls @ 100 mls/hr IV Q24H [facility] Last Infusion: 12/07/20 23:10 Dose: Infused Documented by: Insulin Human Lispro (Insulin Lispro 100 Unit/Ml Insuln.Pen) 0 unit SC [facility]; Protocol Last Admin: 12/08/20 11:05 Dose: 2 u Documented by: Lisinopril (Lisinopril 5 Mg Tablet) 5 mg PO DAILY [facility] Last Admin: 12/08/20 09:21 Dose: 5 mg Documented by: Loratadine (Loratadine 10 Mg Tablet) 10 mg PO DAILY [facility] Last Admin: 12/08/20 09:21 Dose: 10 mg Documented by: Metformin HCl (Metformin Hcl 500 Mg Tablet) 500 mg PO BIDCM [facility] Last Admin: 12/08/20 09:21 Dose: Not Given Documented by: Morphine Sulfate (Morphine 2 Mg/Ml Syringe) 2 mg IV Q3H PRN PRN PRN Reason: Pain Score 6-10 Ondansetron HCl (Ondansetron 4 Mg/2 Ml Vial) 4 mg IV Q8H PRN PRN PRN Reason: NAUSEA/VOMITING Last Admin: 12/07/20 09:07 Dose: 4 mg Documented by: Oxycodone HCl (Oxycodone 5 Mg Tablet) 5 mg PO Q4H PRN PRN PRN Reason: Pain Score 4-5 Pravastatin Sodium (Pravastatin 20 Mg Tablet) 20 mg PO QHS [facility] Last Admin: 12/07/20 21:41 Dose: 20 mg Documented by: Sodium Chloride (0.9% Saline Lock 10 Ml Syringe) 10 - 40 ml IV UD PRN PRN Reason: SALINE FLUSH Last Admin: 12/07/20 22:31 Dose: 10 ml Documented by: Medical Necessity - Tobacco Use Smoking Status: Never smoker Assessment/Plan All Active Problems (Last Updated 03/15/18 @ 12:41 by Dinorah Cabrera) Physical exam (Acute) 1. Near syncope, suspect vasovagal secondary to episode of nausea/vomiting. Orthostatic vitals negative. Troponin negative. 2. Gastroesophageal junction stenosis with recurrent nausea/vomiting-CT of abdomen on admission shows moderate hiatal hernia. Speech therapy consulted. Modified barium demonstrates weblike stenosis at the gastroesophageal junction with trapping of ingested 12 mm tablet of barium. General surgery consulted. Plan for scope tomorrow. 3. Acute cystitis-urine culture growing 25-50,000 mixed gram-positive and gram-negative organisms. Discontinue IV Rocephin following 3 doses. 4. Type 2 diabetes mellitus-on Metformin. Accu-Cheks with sliding scale insulin. 5. Hypertension-stable, continue lisinopril. 6. Hyperlipidemia-continue statin. DVT prophylaxis- Lovenox sc This patient was seen by GABRIEL Abbasi under the supervision of Dr. Jorge.
[2020-12-08 15:20] VITALS: BP 115/70; PULSE 68; RESP 18; TEMP 36.8; O2SAT 98
[2020-12-08] MEDS: 0.9% Saline Lock 10 ML Syringe IV ×2 (15:20→22:33)
[2020-12-08 16:31] LABS: Bedside Glucose 134 mg/dL (70-110)
[2020-12-08 20:20] VITALS: BP 113/70; PULSE 69; RESP 16; TEMP 36.4; O2SAT 97
[2020-12-08] MEDS: Gabapentin 300 MG Capsule PO (22:32)
[2020-12-08] MEDS: Pravastatin 20 MG Tablet PO (22:32)
[2020-12-08] MEDS: Ceftriaxone 1 GM/50 ML BAG IV (22:33)
[2020-12-08 22:50] LABS: Bedside Glucose 167 mg/dL (70-110)
[2020-12-09 02:45] VITALS: BP 119/75; PULSE 67; RESP 16; TEMP 36.6; O2SAT 96
[2020-12-09 06:55] LABS: Bedside Glucose 185 mg/dL (70-110)
[2020-12-09 08:22] VITALS: BP 130/84; PULSE 74; RESP 16; TEMP 36.3; O2SAT 96
--- NOTE | 2020-12-09 08:39 | PCM.CONS.GEN ---
Problem List (1) Dysphagia Status: Acute Qualifiers: Dysphagia type: esophageal phase Qualified Code(s): R13.10 - Dysphagia, unspecified Reason for Consult Date of Consultation: 12/09/20 History of Present Illness: The patient is a 65 year old F is in the hospital with electrolyte abnormalities and vomiting. The patient reports she is been having dysphagia for a long time. She is not remember having an EGD but she says someone told her that she had a stricture in her esophagus. She has been having problems with liquids and solids. Past Medical History Medical History: Medical History (Last Updated 03/15/18 @ 12:41 by Dinorah Cabrera) Arthritis M19.90 Diabetes E11.9 Thyroid disease E07.9 Allergies No Known Allergies Allergy (Verified 12/06/20 21:29) Home Medications: Ambulatory Orders Medication Instructions Recorded Ascorbic Acid [Vitamin C] 500 mg PO DAILY@0800 09/26/16 Cholecalciferol (VIT D3) [Vitamin 2,000 unit PO DAILY 09/26/16 D] Ferrous Sulfate 325 mg PO BID 09/26/16 Lisinopril [Zestril] 5 mg PO DAILY 09/26/16 Loratadine 10 mg PO DAILY 09/26/16 Pravastatin [Pravachol] 20 mg PO QHS 09/26/16 metFORMIN HCl [Glucophage] 500 mg PO BIDCM 09/26/16 Famotidine 40 mg PO DAILY 12/06/20 Gabapentin 300 mg PO QHS 12/06/20 Surgical History: Surgical History (Last Updated 03/15/18 @ 12:41 by Dinorah Cabrera) History of cholecystectomy Z90.49 History of tubal ligation Z98.51 Surgical History: cholecystectomy Psychiatric History: No pertinent psych hx [employer] History: No pertinent [employer] history Lives: With Family Smoking Status: Never smoker Alcohol: None Drugs: None Review of Systems Constitutional: Denies: Anorexia, Fever HEENT: Reports: Difficulty Swallowing Cardiovascular: Denies: Chest Pain Respiratory: Denies: Cough, Shortness of Breath Gastrointestinal: Reports: Vomiting. Denies: Abdominal Pain, Nausea Genitourinary: Denies: Dysuria Musculoskeletal: Denies: Joint Tenderness Skin: Denies: Jaundice Hematologic/ Lymphatic: Denies: Anemia - Physical Exam Vitals/I&O's: Vital Signs Temp Pulse Resp BP Pulse Ox 97.3 F L 74 16 130/84 H 96 02/16/21 08:22 12/09/20 08:22 12/09/20 08:22 12/09/20 08:22 12/09/20 08:22 Oxygen Delivery Method Room Air Weight: 138 lb 7.205 oz Body Mass Index (BMI) 24.5 Finger Stick Blood Glucose 199 Intake and Output for Last 24 Hours 12/07/20 12/08/20 12/09/20 23:59 23:59 23:59 Intake Total 3640 / 3760 1830 / 1830 0 / 0 Balance 3640 / 3760 1830 / 1830 0 / 0 General: Alert, Oriented x3 Neck: No JVD Lungs: Normal air movement Cardiovascular: Regular rate, Regular Rhythm Abdomen: Soft, Non Tender, Non-Distended Musculoskeletal: No Muscle Wasting Neurological: Cranial nerves II-XII grossly intact Psych/Mental Status: Normal Affect Microbiology Past 72 Hours 12/06/20 23:13 Urine, Clean Catch Urine Culture - Final Mixed Gram Pos & Gram Neg Org Laboratory Results 12/08/20 11:05: POC Glucose 246 H 12/08/20 16:26: POC Glucose 134 H 12/08/20 22:35: POC Glucose 167 H 12/09/20 06:48: POC Glucose 185 H Clinical Impression(s) from Imaging Studies Barium Swallow X-Ray 12/08/20 07:00 IMPRESSION: Moderate sized sliding hiatal hernia with the weblike stenosis at the gastroesophageal junction. There is trapping of the ingested 12 mm tablet of barium. Endoscopic correlation is recommended. Electronically Signed: Chavo Larios MD at 9:11 EST , Service support , Current Medications Acetaminophen (Acetaminophen 325 Mg Tablet) 650 mg PO Q6H PRN PRN PRN Reason: Pain Score 1-10/Temp > 100.7 F Last Admin: 12/07/20 18:33 Dose: 650 mg Documented by: Ascorbic Acid (Ascorbic Acid 500 Mg Tablet) 500 mg PO DAILY@0800 [facility] Last Admin: 12/08/20 09:21 Dose: 500 mg Documented by: Cholecalciferol (Cholecalciferol (Vit D3) 1,000 Unit (25mcg)) 2,000 unit PO DAILY [facility] Last Admin: 12/08/20 09:21 Dose: 2,000 unit Documented by: Enoxaparin Sodium (Enoxaparin 40 Mg/0.4 Ml Syringe) 40 mg SC DAILY [facility] Last Admin: 12/08/20 09:21 Dose: 40 mg Documented by: Famotidine (Famotidine 20 Mg Tablet) 40 mg PO DAILY [facility] Last Admin: 12/08/20 09:21 Dose: 40 mg Documented by: Ferrous Sulfate (Ferrous Sulfate 325 Mg Tablet) 325 mg PO BIDCM [facility] Last Admin: 12/08/20 16:36 Dose: 325 mg Documented by: Gabapentin (Gabapentin 300 Mg Capsule) 300 mg PO QHS [facility] Last Admin: 12/08/20 22:32 Dose: 300 mg Documented by: Ceftriaxone Sodium (Rocephin) 1 gm in 50 mls @ 100 mls/hr IV Q24H [facility] Stop: 12/10/20 22:01 Last Infusion: 12/08/20 23:03 Dose: Infused Documented by: Sodium Chloride () 250 mls @ 15 mls/hr IV .[id number] PRN PRN Reason: Saline Flush Sodium Chloride () 250 mls @ 15 mls/hr IV .[id number] PRN PRN Reason: Additional IVPB Infusion Insulin Human Lispro (Insulin Lispro 100 Unit/Ml Insuln.Pen) 0 unit SC [facility]; Protocol Last Admin: 12/09/20 06:54 Dose: Not Given Documented by: Lisinopril (Lisinopril 5 Mg Tablet) 5 mg PO DAILY [facility] Last Admin: 12/08/20 09:21 Dose: 5 mg Documented by: Loratadine (Loratadine 10 Mg Tablet) 10 mg PO DAILY [facility] Last Admin: 12/08/20 09:21 Dose: 10 mg Documented by: Metformin HCl (Met[facility] Hcl 500 Mg Tablet) [facility] Last Admin: 12/08/20 16:35 Dose: Not Given Documented by: Morphine Sulfate (Morphine 2 Mg/Ml Syringe) 2 mg IV Q3H PRN PRN PRN Reason: Pain Score 6-10 Ondansetron HCl (Ondansetron 4 Mg/2 Ml Vial) 4 mg IV Q8H PRN PRN PRN Reason: NAUSEA/VOMITING Last Admin: 12/07/20 09:07 Dose: 4 mg Documented by: Oxycodone HCl (Oxycodone 5 Mg Tablet) 5 mg PO Q4H PRN PRN PRN Reason: Pain Score 4-5 Pantoprazole Sodium (Pantoprazole Sodium 40 Mg Tablet) 40 mg PO DAILY [facility] Pravastatin Sodium (Pravastatin 20 Mg Tablet) 20 mg PO QHS [facility] Last Admin: 12/08/20 22:32 Dose: 20 mg Documented by: Sodium Chloride (0.9% Saline Lock 10 Ml Syringe) 10 - 40 ml IV UD PRN PRN Reason: SALINE FLUSH Last Admin: 12/08/20 22:33 Dose: 10 ml Documented by: Assessment/Plan All Active Problems (Last Updated 03/15/18 @ 12:41 by Dinorah Cabrera) Dysphagia (Acute) Physical exam (Acute) 65-year-old female with dysphagia 1. The patient has been experiencing dysphagia for several months. Patient had an upper GI yesterday which showed a weblike stenosis at the GE junction as well as a moderate size hiatal hernia. I discussed EGD with her today in detail as well as dilation. I discussed balloon dilation and the increased risk of perforation or bleeding. The patient understands the risks and is when to proceed. I explained endoscopy in detail to the patient. I explained the risks including but not limited to stroke or heart attack with anesthesia, perforation of the GI tract, bleeding, infection. I explained that any of these could necessitate further emergency surgery. The patient understands and all questions were answered sufficiently. The patient wishes to proceed with procedure. Byron Corona MD Pager: [facility] [address] [place] [address], [address] [place] [address] Office:
[2020-12-09 09:12] VITALS: BP 118/54; BP 130/84; PULSE 69; RESP 14; TEMP 36.7; O2SAT 99
--- NOTE | 2020-12-09 09:12 | OP.CCLET_ITS ---
12/09/2020 Eunice Peralta [facility] Re : Upper GI endoscopy procedure for Cristina Al [facility] This procedure was performed on Wednesday, December 09, 2020. My impressions and recommendations are as follows: Impressions : - Benign-appearing esophageal stenosis. Dilated. - Normal stomach. - Normal examined duodenum. - No specimens collected. Recommendations : - Discharge patient to home. - Resume previous diet. - Continue present medications. - Return to my office in 3 weeks. My findings are described in the full procedure note, which is enclosed. If I can be of further assistance, please feel free to contact me at Doctor phone number(s): , Work: . Sincerely, Byron Corona MD 12/09/2020 9:12:22 AM This report has been signed electronically.
--- NOTE | 2020-12-09 09:12 | OP.EGD_ITS ---
Patient Name: Cristina Otero Procedure Date: 12/09/2020 8:50 AM Date of : 1955 Age: 65 Procedure: Upper GI endoscopy Indications: Dysphagia Providers: Byron Corona MD Medicines: Monitored Anesthesia Care Patient Profile: This is a 65 year old female. Refer to note in patient chart for documentation of history and physical. Complications: No immediate complications. Estimated blood loss: Minimal. Procedure: Pre-Anesthesia Assessment: - Prior to the procedure, a History and Physical was performed, and patient medications and allergies were reviewed. The patient's tolerance of previous anesthesia was also reviewed. The risks and benefits of the procedure and the sedation options and risks were discussed with the patient. All questions were answered, and informed consent was obtained. Prior Anticoagulants: The patient has taken no previous anticoagulant or antiplatelet agents. After reviewing the risks and benefits, the patient was deemed in satisfactory condition to undergo the procedure. After obtaining informed consent, the endoscope was passed under direct vision. Throughout the procedure, the patient's blood pressure, pulse, and oxygen saturations were monitored continuously. The gastroscope was introduced through the mouth, and advanced to the second part of duodenum. The upper GI endoscopy was accomplished without difficulty. The patient tolerated the procedure well. Scope In: 9:03:40 AM Scope Out: 9:09:03 AM Total Procedure Duration Time 0 hours 5 minutes 23 seconds Findings: One benign-appearing, intrinsic stenosis was found at the gastroesophageal junction. This stenosis was moderately severe and measured 1 cm (inner diameter) x less than one cm (in length). The stenosis was traversed. A TTS dilator was passed through the scope. Dilation with a 15-16.5-18 mm balloon dilator was performed to 18 mm. The dilation site was examined following endoscope reinsertion and showed moderate improvement in luminal narrowing. Estimated blood loss was minimal. The stomach was normal. The examined duodenum was normal. Impression: - Benign-appearing esophageal stenosis. Dilated. - Normal stomach. - Normal examined duodenum. - No specimens collected. Recommendation: - Discharge patient to home. - Resume previous diet. - Continue present medications. - Return to my office in 3 weeks. Procedure Code(s): --- Professional --- 80779, Esophagogastroduodenoscopy, flexible, transoral; with transendoscopic balloon dilation of esophagus (less than 30 mm diameter) Diagnosis Code(s): --- Professional --- K22.2, Esophageal obstruction R13.10, Dysphagia, unspecified CPT copyright 2017 [employer]. All rights reserved. The codes documented in this report are preliminary and upon spray unit feeder review may be revised to meet current compliance requirements. Byron Corona MD 12/09/2020 9:12:22 AM This report has been signed electronically. Number of Addenda: 0 Note Initiated On: 12/09/2020 8:50 AM
--- NOTE | 2020-12-09 09:13 | PN_ITS ---
Progress Note I performed an EGD on the patient and the patient did have a esophageal Schatzki's ring at the GE junction. This was balloon dilated up from 1 cm to 18 mm. The patient's was started on full liquid diet and then can be advanced to mechanical soft diet and she should stay on mechanical soft diet for 2 days and then be advanced to regular diet. Patient should be discharged home on oral PPI. She is to follow-up with me in 3 to 4 weeks for discussion of subsequent serial dilations. Byron Corona MD Pager: [facility] [address] [place] [address], [address] [place] [address] Office: [facility] Vital Signs/Narrative: Vital Signs Temp Pulse Resp BP Pulse Ox 12/09/20 08:22 97.3 F L 74 16 130/84 H 96
[2020-12-09 09:17] VITALS: BP 112/56; BP 130/84; PULSE 66; RESP 14; O2SAT 99
[2020-12-09 09:22] VITALS: BP 122/58; BP 130/84; PULSE 65; RESP 15; O2SAT 99
[2020-12-09 09:27] VITALS: BP 114/61; BP 130/84; PULSE 64; RESP 14; TEMP 36.5; O2SAT 99
--- NOTE | 2020-12-09 11:20 | CASEMGMT ---
RN CM Assessment Note Introduced role of CM to patient in room. Patient is dressed and ready to discharge home. Demographics, PCP verified. Denies concerns or needs @ home. Presentation: dizziness, vomiting Diagnosis: near syncope. PCP: Eunice Spangler Specialists: Dr. Corona Insurance: [facility] Preferred Pharmacy: [facility] Prescription Benefit: yes LNOK: saray gonzalez Living Arrangements: Lives independently with daughter and granddaughter. Denies needs. Tranportation: Drives Patient DC Goals: Home DC Plan: Home today. no dc needs identified. Pt is able to f/u with Dr. Corona on discharge. CM available for discharge planning coordination. Contact CM for any concerns/needs that may arise. Leticia LLOYDN RN ACM
[2020-12-09] MEDS: Pantoprazole Sodium 40 MG Tablet PO (11:33)
[2020-12-09] MEDS: metFORMIN HCl 500 MG Tablet PO (11:33)
[2020-12-09] MEDS: Loratadine 10 MG Tablet PO (11:33)
[2020-12-09] MEDS: Ascorbic Acid 500 MG Tablet PO (11:34)
[2020-12-09] MEDS: Lisinopril 5 MG Tablet PO (11:34)
[2020-12-09] MEDS: Ferrous Sulfate 325 MG Tablet PO (11:34)
[2020-12-09] MEDS: Famotidine 20 MG Tablet 40 MG PO (11:34)
[2020-12-09] MEDS: Insulin Lispro 100 UNIT/ML INSULN.PEN SC (11:40)
--- NOTE | 2020-12-09 11:41 | PCM.DC ---
- Discharge Diagnoses Current Active Problems: Current Active and Chronic Problems (Last Updated 03/15/18 @ 12:41 by Dinorah Cabrera) Dysphagia (Acute) You will use the following diet at home:: Other - Continue mechanical soft diet for 2 days then advance to regular diet. Your food should be the consistency of: Mechanical soft (ground), Soft (bite-sized & easy to chew/swallow) Discharge Activity: Return to Normal Activity Call your doctor if you observe: Shortness of breath, Dizziness, Fainting spells, Chest pain Allergies/Adverse Reactions: Allergies No Known Allergies Allergy (Verified 12/06/20 21:29) Medications to take at Discharge Ascorbic Acid [Vitamin C] 500 mg PO DAILY@0800 09/26/16 Cholecalciferol (VIT D3) [Vitamin D3] 2,000 unit PO DAILY 09/26/16 Ferrous Sulfate 325 mg PO BID 09/26/16 Lisinopril [Zestril] 5 mg PO DAILY 09/26/16 Loratadine 10 mg PO DAILY 09/26/16 Pravastatin [Pravachol] 20 mg PO QHS 09/26/16 metFORMIN HCl [Glucophage] 500 mg PO BIDCM 09/26/16 Gabapentin 300 mg PO QHS 12/06/20 Pantoprazole Sodium [Protonix] 40 mg PO DAILY #60 tab 12/09/20 The following prescriptions were given: Pantoprazole Sodium [Protonix] 40 mg PO DAILY #60 tab Transmission Status: Pending to [id number] - Please follow up with your Primary Care Physician in: 1 Week Test Results: Test results from this visit will be discussed in further detail at your follow-up appointment, if applicable. Please Follow Up With: Byron Corona MD When: 3-4 Weeks Proposed Discharge Date: 12/09/20
[2020-12-09 11:56] LABS: Bedside Glucose 165 mg/dL (70-110)
--- NOTE | 2020-12-09 12:40 | PHA.DC.MR ---
Pharmacy Service has performed discharge medication reconciliation for this patient. The patient's discharge medication list was reviewed for discrepancies and discrepancies were resolved. Home Medications Ascorbic Acid [Vitamin C] 500 mg PO DAILY@0800 09/26/16 Cholecalciferol (VIT D3) [Vitamin D] 2,000 unit PO DAILY 09/26/16 Ferrous Sulfate 325 mg PO BID 09/26/16 Lisinopril [Zestril] 5 mg PO DAILY 09/26/16 Loratadine 10 mg PO DAILY 09/26/16 Pravastatin [Pravachol] 20 mg PO QHS 09/26/16 metFORMIN HCl [Glucophage] 500 mg PO BIDCM 09/26/16 Famotidine 40 mg PO DAILY 12/06/20 Gabapentin 300 mg PO QHS 12/06/20
--- NOTE | 2020-12-09 13:54 | PCM.DC.SUM ---
<Agnieszka Mccray REHAB DIRECTOR OCCUPATIONAL THERAPIST - Last Filed: 12/09/20 14:03> Discharge Date and Diagnosis - Problem List Patient Problems: Active and Suspected Problems (Last Updated 03/15/18 @ 12:41 by Dinorah Cabrera) Dysphagia (Acute) Date of Admission: 12/07/20 Date of Discharge: 12/09/20 - Primary Discharge Diagnosis Acute Problems: Active Problems (Last Updated 03/15/18 @ 12:41 by Dinorah Cabrera) 1. Near syncope, vasovagal secondary to episode of nausea/vomiting as result of #2 2. Gastroesophageal junction stenosis with recurrent nausea/vomiting 3. Acute cystitis 4. Type 2 diabetes mellitus 5. Hypertension 6. Hyperlipidemia Hospital Course and Treatment Imaging Results: Diagnostic Data Brain CT 12/06/20 21:39 IMPRESSION: Normal unenhanced CT scan of the brain. Electronically Signed: Osbaldo Rice MD at 22:53 EST , Service support , Abdomen/Pelvis CT 12/06/20 21:40 IMPRESSION: No definite acute or significant abnormality seen. Electronically Signed: Osbaldo Rice MD at 23:05 EST , Service support , Chest X-Ray 12/06/20 22:31 IMPRESSION: Normal x-ray examination of the chest. Electronically Signed: Osbaldo Rice MD at 22:53 EST , Service support , Barium Swallow X-Ray 12/08/20 07:00 IMPRESSION: Moderate sized sliding hiatal hernia with the weblike stenosis at the gastroesophageal junction. There is trapping of the ingested 12 mm tablet of barium. Endoscopic correlation is recommended. Electronically Signed: Chavo Larios MD at 9:11 EST , Service support , Dr. Corona- General surgery Operations: None Procedures: EGD - With esophageal dilation Summary of Care Provided: The patient is a 65 year old F admitted 12/07/2020 due to nausea and near syncope./Vomiting 1. Near syncope, vasovagal secondary to episode of nausea/vomitin as a result of #2 g. Orthostatic vitals negative. Troponin negative. 2. Gastroesophageal junction stenosis with recurrent nausea/vomiting-CT of abdomen on admission shows moderate hiatal hernia. Speech therapy consulted. Modified barium demonstrates weblike stenosis at the gastroesophageal junction with trapping of ingested 12 mm tablet of barium. General surgery consulted. Patient underwent EGD which showed esophageal Schatzki's ring at the GE junction which was dilated up from 1cm to 18 mm. Patient will continue mechanical soft diet for 2 days then advance to regular diet. Discharge on PPI. Follow-up with general surgery in 3 to 4 weeks for subsequent serial dilations. 3. Acute cystitis, mild-urine culture growing 25-50,000 mixed gram-positive and gram-negative organisms. Patient received IV Rocephin x3 doses. Further antibiotics discontinued. 4. Type 2 diabetes mellitus-continue home regimen. 5. Hypertension-stable, continue lisinopril. 6. Hyperlipidemia-continue statin. General: Alert, Oriented x3, Cooperative HEENT: Atraumatic, PERRLA, EOMI, Normocephalic Neck: Supple, No JVD, Negative Carotid Bruits Lungs: Clear to auscultation, Normal air movement Cardiovascular: Regular rate, No murmurs Abdomen: Bowel Sounds Present, Soft, Non Tender Extremities: No clubbing, No cyanosis, No edema, Capillary Refill Less than 3 Seconds Skin: No rashes, No breakdown Musculoskeletal: No Tenderness to Palpation of Joints or Extremities Neurological: Cranial nerves II-XII grossly intact, Neuro grossly intact Psych/Mental Status: Normal Affect, Appropriate Patient seen and examined prior to discharge. Physical assessment as noted above. Patient is stable for discharge with follow up recommendations as noted above. This patient was seen by GABRIEL Abbasi under the supervision of Dr. Landaverde. Patient Problems: Active and Suspected Problems (Last Updated 03/15/18 @ 12:41 by Dinorah Cabrera) Dysphagia (Acute) - Physical Exam Vitals/I&O's: Vital Signs Temp Pulse Resp BP Pulse Ox 97.7 F L 64 14 114/61 99 12/09/20 09:27 02/16/21 09:27 12/09/20 09:27 12/09/20 09:27 12/09/20 09:27 Oxygen Delivery Method Room Air Weight: 138 lb 7.205 oz Body Mass Index (BMI) 24.5 Finger Stick Blood Glucose 199 Intake and Output for Last 24 Hours 12/07/20 12/08/20 12/09/20 23:59 23:59 23:59 Intake Total 3640 / 3760 1830 / 1830 0 / 0 Balance 3640 / 3760 1830 / 1830 0 / 0 Microbiology Past 72 Hours 12/09/20 07:55 Mucosa - Nose SARS-CoV-2 Antigen (Rapid) - Final 12/06/20 23:13 Urine, Clean Catch Urine Culture - Final Mixed Gram Pos & Gram Neg Org Laboratory Results 12/08/20 16:26: POC Glucose 134 H 12/08/20 22:35: POC Glucose 167 H 12/09/20 06:48: POC Glucose 185 H 12/09/20 11:40: POC Glucose 165 H Current Medications Acetaminophen (Acetaminophen 325 Mg Tablet) 650 mg PO Q6H PRN PRN PRN Reason: Pain Score 1-10/Temp > 100.7 F Last Admin: 12/07/20 18:33 Dose: 650 mg Documented by: Ascorbic Acid (Ascorbic Acid 500 Mg Tablet) 500 mg PO DAILY@0800 [facility] Last Admin: 12/09/20 11:34 Dose: 500 mg Documented by: Cholecalciferol (Cholecalciferol (Vit D3) 1,000 Unit (25mcg)) 2,000 unit PO DAILY [facility] Last Admin: 12/09/20 11:33 Dose: 2,000 unit Documented by: Enoxaparin Sodium (Enoxaparin 40 Mg/0.4 Ml Syringe) 40 mg SC DAILY [facility] Last Admin: 12/08/20 09:21 Dose: 40 mg Documented by: Famotidine (Famotidine 20 Mg Tablet) 40 mg PO DAILY [facility] Last Admin: 12/09/20 11:34 Dose: 40 mg Documented by: Ferrous Sulfate (Ferrous Sulfate 325 Mg Tablet) 325 mg PO BIDCM [facility] Last Admin: 12/09/20 11:34 Dose: 325 mg Documented by: Gabapentin (Gabapentin 300 Mg Capsule) 300 mg PO QHS [facility] Last Admin: 12/08/20 22:32 Dose: 300 mg Documented by: Ceftriaxone Sodium (Rocephin) 1 gm in 50 mls @ 100 mls/hr IV Q24H [facility] Stop: 12/10/20 22:01 Last Infusion: 12/08/20 23:03 Dose: Infused Documented by: Sodium Chloride () 250 mls @ 15 mls/hr IV .[id number] PRN PRN Reason: Saline Flush Sodium Chloride () 250 mls @ 15 mls/hr IV .[id number] PRN PRN Reason: Additional IVPB Infusion Insulin Human Lispro (Insulin Lispro 100 Unit/Ml Insuln.Pen) 0 unit SC ACHS [facility]; Protocol Last Admin: 12/09/20 11:40 Dose: 1 u Documented by: Lisinopril (Lisinopril 5 Mg Tablet) 5 mg PO DAILY [facility] Last Admin: 12/09/20 11:34 Dose: 5 mg Documented by: Loratadine (Loratadine 10 Mg Tablet) 10 mg PO DAILY [facility] Last Admin: 12/09/20 11:33 Dose: 10 mg Documented by: Metformin HCl (Metformin Hcl 500 Mg Tablet) 500 mg PO BIDCM [facility] Last Admin: 12/09/20 11:33 Dose: 500 mg Documented by: Morphine Sulfate (Morphine 2 Mg/Ml Syringe) 2 mg IV Q3H PRN PRN PRN Reason: Pain Score 6-10 Ondansetron HCl (Ondansetron 4 Mg/2 Ml Vial) 4 mg IV Q8H PRN PRN PRN Reason: NAUSEA/VOMITING Last Admin: 12/07/20 09:07 Dose: 4 mg Documented by: Oxycodone HCl (Oxycodone 5 Mg Tablet) 5 mg PO Q4H PRN PRN PRN Reason: Pain Score 4-5 Pantoprazole Sodium (Pantoprazole Sodium 40 Mg Tablet) 40 mg PO DAILY [facility] Last Admin: 12/09/20 11:33 Dose: 40 mg Documented by: Pravastatin Sodium (Pravastatin 20 Mg Tablet) 20 mg PO QHS [facility] Last Admin: 12/08/20 22:32 Dose: 20 mg Documented by: Sodium Chloride (0.9% Saline Lock 10 Ml Syringe) 10 - 40 ml IV UD PRN PRN Reason: SALINE FLUSH Last Admin: 12/08/20 22:33 Dose: 10 ml Documented by: Discharge Diet: - - Mechanical soft diet for 2 days Discharge Activity: Return to Normal Activity Call your doctor if you observe: Shortness of breath, Dizziness, Fainting spells, Chest pain Home Medications: Medications to take at Discharge Ascorbic Acid [Vitamin C] 500 mg PO DAILY@0800 09/26/16 Cholecalciferol (VIT D3) [Vitamin D3] 2,000 unit PO DAILY 09/26/16 Ferrous Sulfate 325 mg PO BID 09/26/16 Lisinopril [Zestril] 5 mg PO DAILY 09/26/16 Loratadine 10 mg PO DAILY 09/26/16 Pravastatin [Pravachol] 20 mg PO QHS 09/26/16 metFORMIN HCl [Glucophage] 500 mg PO BIDCM 09/26/16 Gabapentin 300 mg PO QHS 12/06/20 Pantoprazole Sodium [Protonix] 40 mg PO DAILY #60 tab 12/09/20 Following Prescriptions Were Given to Patient: Pantoprazole Sodium [Protonix] 40 mg PO DAILY #60 tab Transmission Status: Received by [id number] - Please follow up with your Primary Care Physician in: 1 Week Please Follow Up With: Byron Corona MD When: 3-4 Weeks Disposition: Home Minutes spent on discharge:: 35 Patient Condition:: Stable Medical Necessity - Tobacco Use Smoking Status: Never smoker Meaningful Use Info Meaningful Use Diagnoses (Choose all that apply): None applicable <Akhil,[place] - Last Filed: 12/11/20 14:53> Discharge Date and Diagnosis - Primary Discharge Diagnosis Acute Problems: Active Problems (Last Updated 03/15/18 @ 12:41 by Dinorah Cabrera) Dysphagia (Acute) Hospital Course and Treatment Summary of Care Provided: This patient was seen in conjunction with Agnieszka Mccray NP. I have independently interviewed and examined the patient and reviewed pertinent historical, laboratory, and other data. Please refer to her note for patient's presentation, findings, and recommendations. 65-year-old female with past medical history of hypertension, type II DM, hyperlipidemia patient had several episodes of vomiting with presyncope symptoms. Her work-up in the ED was unremarkable. History of acute UTI. She was admitted and complained of difficulty swallowing with food stuck mid abdomen. A barium swallow test was done; results showed a moderate sized hiatal hernia with weblike stenosis at the gastroesophageal junction with trapping of ingested 12 mm tablets of barium. General surgery was consulted and patient underwent EGD on that showed an esophageal Schatzki's ring at the GE junction. This was balloon dilated up from 1 cm to 18 mm. The patient's was started on full liquid diet. She tolerated on an advancement to mechanical soft diet. She will stay on mechanical soft diet for 2 days and then be advanced to regular diet. Discharged on oral PPI. She will follow-up with general surgery in 3 to 4 weeks. On the day of discharge, patient was seen and examined. She felt improved. Physical Exam: Gen: Looks in some discomfort, not pale, not jaundiced, alert oriented x3 CVS:HS I +II, regular, no murmurs RESP: Diminished at lung bases GI: BS present and normal, nontender, no palpable organs EXT:No edema - Physical Exam Vitals/I&O's: Vital Signs Temp Pulse Resp BP Pulse Ox 97.7 F L 64 14 114/61 99 12/09/20 09:27 12/09/20 09:27 12/09/20 09:27 12/09/20 09:27 12/09/20 09:27 Oxygen Delivery Method Room Air Weight: 62.8 kg Body Mass Index (BMI) 24.5 Finger Stick Blood Glucose 199 Intake and Output for Last 24 Hours 12/07/20 12/08/20 12/09/20 23:59 23:59 23:59 Intake Total 3640 / 3760 1830 / 1830 0 / 0 Balance 3640 / 3760 1830 / 1830 0 / 0 Microbiology Past 72 Hours 12/09/20 07:55 Mucosa - Nose SARS-CoV-2 Antigen (Rapid) - Final 12/06/20 23:13 Urine, Clean Catch Urine Culture - Final Mixed Gram Pos & Gram Neg Org Laboratory Results 12/08/20 22:35: POC Glucose 167 H 12/09/20 06:48: POC Glucose 185 H 12/09/20 11:40: POC Glucose 165 H Inpatient E&M: [id number] Disch Hosp
== END 2020-12-09 15:06 | disposition home or self-care (01) | DRG 392 ==
LOC: ED 22:57 → PCU 12-07 00:53
PROVIDERS: Internal Medicine; Nurse Practitioner Family; Surgery; Admitting Provider Student in an Organized Health Care Education/Training Program; Emergency Provider Emergency Medicine; Visit Provider Internal Medicine
PROC: 0DJ08ZZ Inspection of Upper Intestinal Tract, Via Natural or Artificial Opening Endoscopic (ICD-10-PCS; CPT 43235; principal; 2020-12-09 10:40)
DX: K22.2 Esophageal obstruction (principal); N30.00 Acute cystitis without hematuria; K44.9 Diaphragmatic hernia without obstruction or gangrene; K21.9 Gastro-esophageal reflux disease without esophagitis; R55 Syncope and collapse; I10 Essential (primary) hypertension; E11.9 Type 2 diabetes mellitus without complications; E78.5 Hyperlipidemia, unspecified; Z90.49 Acquired absence of other specified parts of digestive tract; Z79.84 Long term (current) use of oral hypoglycemic drugs; Z79.899 Other long term (current) drug therapy
CPT/HCPCS: 36415; 70450; 71045; 74177; 74221; 80048; 80053; 81001; 82962; 83690; 84484; 85025; 85027; 87086; 87088; 87426; 92611; 93005; 97162; 97165; 97802; 97803; 99285; J7030; J7050; Q9967; A4216; J2405

== ENCOUNTER → 2020-12-24 08:03 | Outpatient (CLI) | payer MEDICARE, MEDICAID, SELFPAY ==
[2020-12-07 01:55] VITALS: BMI 24.5
[2020-12-24 08:52] LABS: Hemoglobin A1c 7.3 % (3.8-5.6)
[2020-12-24 08:54] LABS: Glucose 189 mg/dL (74-106); Thyroid Stim Hormone (TSH) 4.93 uIU/mL (0.358-3.74)
== END ==
DX: E11.9 Type 2 diabetes mellitus without complications (principal); E03.9 Hypothyroidism, unspecified
CPT/HCPCS: 36415; 82947; 83036; 84443

== ENCOUNTER → 2021-03-05 10:50 | Outpatient (CLI) | payer MEDICARE, MEDICAID, SELFPAY ==
[2021-03-05 11:12] LABS: Hematocrit 35.3 % (37-47); Hemoglobin 11.9 g/dL (12.0-15.0); Mean Corp Hgb Conc 33.7 g/dL (32-36); Mean Corpuscular Hgb 31.6 pg (27.0-32.0); Mean Corpuscular Volume 93.9 fL (81-99); Mean Platelet Vol. 9.2 fl (6.2-12.0); Platelet Count 271 K/mm3 (150-450); RBC Distribution Width CV 11.7 % (11.6-14.6); RBC Distribution Width SD 39.5 fl (35.1-43.9); Red Blood Count 3.76 M/mm3 (4.2-5.4); White Blood Count 7.3 K/mm3 (4.4-11.0)
[2021-03-05 11:54] LABS: ALB/GLOB Ratio 1.1 RATIO (0.9-2.4); AST(SGOT) 10 U/L (15-37); Alanine Aminotransfer ALT/SGPT 17 U/L (13-56); Albumin, Serum 3.9 g/dL (3.2-5.0); Alkaline Phosphatase 108 U/L (45-117); Anion Gap 10 (5-15); BUN 14 mg/dL (7-18); BUN/Creat Ratio 12.2 RATIO (10-20); Calcium,Total 9.2 mg/dL (8.5-10.1); Chloride 99 mmol/L (98-107); Creatinine, Serum 1.15 mg/dL (0.55-1.02); EST Glomerular Filtration Rate 50 mL/min (>60); Est Glom Filt Rate - Afr Amer 61 mL/min (>60); Ferritin 172 ng/mL (8-252); Globulin 3.5 g/dL (2.2-4.2); Glucose 172 mg/dL (74-106); Iron 107 ug/dL (50-170); Potassium 3.7 mmol/L (3.5-5.1); Protein, Total 7.4 g/dL (6.4-8.2); Sodium Level 133 mmol/L (136-145); T4 Free Direct 0.98 ng/dL (0.76-1.46); Thyroid Stim Hormone (TSH) 3.15 uIU/mL (0.358-3.74)
[2021-03-06 12:37] LABS: Thyroid Peroxidase AB 267 IU/mL (0-34)
== END ==
PROVIDERS: PCP Nurse Practitioner Adult Health; Referring Provider Nurse Practitioner Adult Health; Visit Provider Nurse Practitioner Adult Health
DX: E03.9 Hypothyroidism, unspecified (principal); D64.9 Anemia, unspecified
CPT/HCPCS: 36415; 80053; 82728; 83540; 84439; 84443; 85027; 86376

== ENCOUNTER → 2021-03-24 07:59 | Outpatient (CLI) | payer MEDICARE, SELFPAY ==
[2020-12-07 01:55] VITALS: BMI 24.5
--- NOTE | 2021-03-24 08:03 | BI_ITS ---
MAMMOGRAPHY - BILATERAL SCREENING REASON FOR EXAM: Female, 65 years old. Routine annual screening examination. PERTINENT HISTORY: Non-contributory. TECHNIQUE: Digital bilateral breast mara (3D mammographic acquisition) in the CC and MLO projections. 2-D mediolateral oblique (MLO) and craniocaudad (CC) views of both breasts were obtained. CAD: Full Field Digital Mammography with Computer Added Detection was performed. COMPARISON: Comparison is made with prior examination dated 03/19/2020 and 03/13/2019. FINDINGS: Breast Composition: There are scattered areas of fibroglandular density. There are no dominant masses or suspicious calcifications. Stable asymmetry of breast tissue where more breast tissue is seen in the right retroareolar region as compared to the left side. Stable 4 mm well-defined nodule in the deep inferior medial aspect of the left breast No other significant abnormalities are identified. There has been no significant change since the prior study. BI/SCRN MAMM (CAD)W/MARA BILAT IMPRESSION: Stable bilateral screening mammogram. Yearly follow-up mammogram recommended. (A) ASSESSMENT CATEGORY: BIRADS Category 2: Benign. A letter regarding these results will be sent to the patient by the facility within 30 days. Approximately 10% of breast cancers are not detected by mammography. A normal mammogram should not delay biopsy of a clinically suspicious abnormality. [id number] Electronically Signed: Chavo Larios MD at 11:22 EDT , Service support ,
== END ==
PROVIDERS: PCP Nurse Practitioner Adult Health; Referring Provider Nurse Practitioner Adult Health; Visit Provider Nurse Practitioner Adult Health
DX: Z12.31 Encounter for screening mammogram for malignant neoplasm of breast (principal)
CPT/HCPCS: 77063; 77067

== ENCOUNTER 2021-06-15 09:59 | Emergency (ER) | payer MEDICARE, MEDICAID, SELFPAY ==
[2021-06-15 10:00] VITALS: BP 100/78; PULSE 113; RESP 18; TEMP 36.7; O2SAT 99; BMI 29.2
--- NOTE | 2021-06-15 10:15 | RAD_ITS ---
STUDY: X-RAY CHEST REASON FOR EXAM: Female, 66 years old. Weakness TECHNIQUE: Single AP portable view of the chest. COMPARISON: Comparison is made with prior study dated 12/06/2020. FINDINGS: New focal infiltrate is seen in the lateral aspect of the right upper lobe as well as in the left lower lobe. Mild increased markings are also seen in the right lower lobe. There is no demonstrated pleural abnormality. Normal size heart. Normal mediastinum and meri. Normal visualized pulmonary arteries. Normal visualized aortic arch and descending thoracic aorta. Normal visualized thoracic spine. Normal visualized ribs, clavicles, and shoulders. Surgical clips are seen in the right upper quadrant. RAD/Chest 1 View (Portable) IMPRESSION: Bilateral patchy infiltrates in the right upper, right lower and left lower lobes. Electronically Signed: Chavo Larios MD at 10:45 EDT , Service support ,
--- NOTE | 2021-06-15 10:16 | EKG12_ITS ---
Test Reason : WEAKNESS Blood Pressure : / mmHG Vent. Rate : 093 BPM Atrial Rate : 093 BPM P-R Int : 154 ms QRS Dur : 082 ms QT Int : 334 ms P-R-T Axes : 064 050 026 degrees QTc Int : 415 ms Normal sinus rhythm Nonspecific T wave abnormality Abnormal ECG Confirmed by SYLWIA LORENZO, BLAINE ([id number]), editor sound BLANCA DARDEN ([id number]) on 06/18/2021 10:16:34 AM Referred By: MJ Confirmed By:BLAINE DAO MD
--- NOTE | 2021-06-15 10:18 | EX.ED.DYSGE1 ---
HPI History of Present Illness Chief Complaint: General Illness Narrative Narrative: Patient presents with 2-week history of nausea, generalized weakness and loose watery stools, about 3/day. She has no abdominal pain. She has no fever or chills. She had some congestion but this has gone. She has no shortness of breath or chest pain. No current cough. She does have some myalgias.. [facility] Medical History (Updated 06/15/21 @ 14:[address] Chay Lopez MD) Arthritis Diabetes Dysphagia GERD (gastroesophageal reflux disease) HTN (hypertension) Thyroid disease Home Medications ascorbic acid (vitamin C) 500 mg PO DAILY@0800 09/26/16 [History Last Taken 09/26/16] cholecalciferol (vitamin D3) 2,000 unit PO DAILY 09/26/16 [History Last Taken 09/25/16] ferrous sulfate 325 mg PO BID 09/26/16 [History Last Taken 09/26/16] lisinopril 5 mg PO DAILY 09/26/16 [History Last Taken 09/26/16] loratadine 10 mg PO DAILY 09/26/16 [History Last Taken 09/26/16] metformin 500 mg PO BIDCM 09/26/16 [History Last Taken 09/26/16] pravastatin 20 mg PO QHS 09/26/16 [History Last Taken 09/25/16] gabapentin 300 mg PO QHS 12/06/20 [History Last Taken Unknown] pantoprazole 40 mg PO DAILY #60 tab 12/09/20 [Rx Last Taken Unknown] Allergy/AdvReac Type Severity Reaction Status Date / Time No Known Allergies Allergy Verified 12/30/20 12:54 Surgical History History of cholecystectomy History of tubal ligation Social History (Updated 12/30/20 @ 14:[address] Byron Corona MD) Smoking Status: Never smoker ROS ROS ED ROS Narrative Past medical history: Reviewed, includes type 2 diabetes, hypercholesterolemia, hypertension Medications: Reviewed Social history: Noncontributory Review of systems: All systems negative except as indicated General: No fever. Some generalized weakness. Eyes: No visual changes ENT: No current upper airway congestion, normal voice Neck: No neck pain Cardiovascular: No chest pain Respiratory: No shortness of breath or cough Gastrointestinal: No abdominal pain. There is nausea and loose stools as in HPI. Genitourinary: No dysuria Musculoskeletal: Some generalized myalgias. Skin: No rash Neurological: No memory loss, confusion or any focal weakness Psych: No recent behavioral changes Hematologic: No easy bleeding or easy bruising EXAM Physical Exam Narrative Exam Narrative: Physical exam General: Well nourished, Well developed, No Acute Distress Head: Normocephalic, Atraumatic Eyes: Conjunctiva not pale ENT: Slightly dry mucous membranes, no upper airway congestion, normal posterior oropharynx. Neck: Supple, Nontender, No lymphadenopathy Cardiovascular: Regular rate, Regular rhythm Respiratory: No distress, CTA bilaterally Abdomen: Soft, Nontender, Nondistended Back: Nontender, Normal Inspection. Negative for: CVA tenderness Extremities: Nontender, No edema Skin: Normal color, No rash Neurological: Alert, Normal Strength, Normal Sensation Psychological: Normal affect Const Vital Signs: 06/15/21 10:00 06/15/21 10:23 06/15/21 12:16 Temperature 98.0 F Temperature Source Temporal Pulse Rate 113 H 75 Respiratory Rate 18 18 Respiratory Effort Normal Non-Labored Blood Pressure 100/78 109/70 Blood Pressure Mean 85 83 Pulse Ox 99 98 Oxygen Delivery Method Room Air Room Air 06/15/21 14:00 Temperature Temperature Source Pulse Rate 77 Respiratory Rate 14 Respiratory Effort Blood Pressure 130/70 H Blood Pressure Mean 90 Pulse Ox 99 Oxygen Delivery Method Room Air MDM MDM MDM Narrative Medical decision making narrative: Prep patient's initial Covid was negative however the x-ray was very suspicious for Covid thus I send a second test which was positive, I do believe she has Covid. She is oxygenating well she has done this for least 2 weeks thus I believe she will be stable at home and safe at home. I did tell her if she gets shortness of breath or worse symptoms to return. She has Zofran at home. Lab Data Labs: Laboratory Results - last 24 hr 06/15/21 06/15/21 06/15/21 10:41 10:41 11:25 WBC 8.1 RBC 3.71 L Hgb 11.6 L Hct 34.9 L MCV 94.1 MCH 31.3 MCHC 33.2 RDW Std Deviation 39.3 RDW Coeff of Kyung 11.5 L Plt Count 406 MPV 9.2 Immature Gran % (Auto) 1.100 H Neut % (Auto) 69.8 Lymph % (Auto) 19.6 [place] % (Auto) 7.4 Eos % (Auto) 1.5 Baso % (Auto) 0.6 Absolute Neuts (auto) 5.7 Absolute Lymphs (auto) 1.59 Nucleated RBC % 0 Sodium 134 L Potassium 4.2 Chloride 106 Carbon Dioxide 18.0 L Anion Gap 10 BUN 18 Creatinine 1.29 H Estim Creat Clear Calc 37.04 Est GFR (MDRD) Af Amer 53 L Est GFR (MDRD) Non-Af 44 L BUN/Creatinine Ratio 14.0 Glucose 169 H Calcium 10.2 H Total Bilirubin 0.50 AST 17 ALT 14 Alkaline Phosphatase 123 H Total Protein 8.1 Albumin 3.3 Globulin 4.8 H Albumin/Globulin Ratio 0.7 L Lipase 251 COVID-19 (JULIAN) Detected Radiography Diagnostic Testing: Radiology Impression Chest X-Ray 06/15/21 10:15 IMPRESSION: Bilateral patchy infiltrates in the right upper, right lower and left lower lobes. Electronically Signed: Chavo Larios MD at 10:45 EDT , Service support , Discharge Plan Triage Chief Complaint: General Illness ED Provider: Chay Lopez Dx/Rx/DC Orders Clinical Impression: COVID-19 Instructions: COVID-19 and the Flu: What's the Difference?, How COVID-19 Spreads Prescriptions: No Action metformin 500 MG tablet 500 mg PO BIDCM RF: 0 ascorbic acid (vitamin C) 500 MG tablet 500 mg PO DAILY@0800 RF: 0 ferrous sulfate 325 MG tablet 325 mg PO BID RF: 0 pravastatin 20 MG tablet 20 mg PO QHS RF: 0 lisinopril 5 MG tablet 5 mg PO DAILY RF: 0 loratadine 10 MG tablet 10 mg PO DAILY RF: 0 cholecalciferol (vitamin D3) 1,000 UNIT tablet 2,000 unit PO DAILY RF: 0 gabapentin 300 MG capsule 300 mg PO QHS RF: 0 pantoprazole 40 MG tablet 40 mg PO DAILY Qty: 60 RF: 0 Primary Care Provider: Rachel Lees Referrals: Rachel Lees, [facility] [Primary Care Provider] - 2 Days Disposition Disposition: Home, Self Care
[2021-06-15] MEDS: 0.9% Normal Saline 1,000 ML 1000 ML IV (10:39)
[2021-06-15] MEDS: Ondansetron 4 MG/2 ML Vial IV (10:39)
[2021-06-15 10:50] LABS: Absolute Lymphocyte Count 1.59 X10^3/uL (0.83-4.51); Absolute Neutrophil Count 5.7 X10^3/uL (2.0-7.7); Basophil# 0.05 X10^3/uL; Basophil% 0.6 % (0-1); Eosinophil# 0.12 X10^3/uL; Eosinophils% 1.5 % (0-5); Hematocrit 34.9 % (37-47); Hemoglobin 11.6 g/dL (12.0-15.0); Lymphocyte # 1.59 X10^3/ul (0.83-4.51); Lymphocyte % 19.6 % (19-41); Mean Corp Hgb Conc 33.2 g/dL (32-36); Mean Corpuscular Hgb 31.3 pg (27.0-32.0); Mean Corpuscular Volume 94.1 fL (81-99); Mean Platelet Vol. 9.2 fl (6.2-12.0); Monocyte% 7.4 % (0-10); NRBC Flagged by Analyzer 0 % (0-5); Neutrophil # 5.67 X10^3/uL (2.7-7.7); Neutrophil % 69.8 % (47-70); Platelet Count 406 K/mm3 (150-450); RBC Distribution Width CV 11.5 % (11.6-14.6); RBC Distribution Width SD 39.3 fl (35.1-43.9); Red Blood Count 3.71 M/mm3 (4.2-5.4); White Blood Count 8.1 K/mm3 (4.4-11.0)
[2021-06-15 11:07] LABS: ALB/GLOB Ratio 0.7 RATIO (0.9-2.4); AST(SGOT) 17 U/L (15-37); Alanine Aminotransfer ALT/SGPT 14 U/L (13-56); Albumin, Serum 3.3 g/dL (3.2-5.0); Alkaline Phosphatase 123 U/L (45-117); Anion Gap 10 (5-15); BUN 18 mg/dL (7-18); Calcium,Total 10.2 mg/dL (8.5-10.1); Chloride 106 mmol/L (98-107); Creatinine, Serum 1.29 mg/dL (0.55-1.02); EST Glomerular Filtration Rate 44 mL/min (>60); Est Glom Filt Rate - Afr Amer 53 mL/min (>60); Estimated Creatinine Clearance 37.04 ml/min; Globulin 4.8 g/dL (2.2-4.2); Glucose 169 mg/dL (74-106); Lipase 251 U/L (73-393); Potassium 4.2 mmol/L (3.5-5.1); Protein, Total 8.1 g/dL (6.4-8.2); Sodium Level 134 mmol/L (136-145)
[2021-06-15 12:16] VITALS: BP 109/70; PULSE 75; RESP 18; O2SAT 98
[2021-06-15 14:00] VITALS: BP 130/70; PULSE 77; RESP 14; O2SAT 99
[2021-06-15 14:45] VITALS: BP 153/72; PULSE 81; RESP 18; O2SAT 99
== END 2021-06-15 14:46 | disposition home or self-care (01) ==
PROVIDERS: Emergency Provider Emergency Medicine; PCP Nurse Practitioner Adult Health
DX: U07.1 COVID-19 (principal); I10 Essential (primary) hypertension; E11.9 Type 2 diabetes mellitus without complications; E78.00 Pure hypercholesterolemia, unspecified; K21.9 Gastro-esophageal reflux disease without esophagitis; M19.90 Unspecified osteoarthritis, unspecified site; Z79.84 Long term (current) use of oral hypoglycemic drugs; Z79.899 Other long term (current) drug therapy
CPT/HCPCS: 71045; 80053; 83690; 85025; 87426; 87635; 93005; 96361; 96374; 99284; J7030; U0005; A4216; J2405; U0003

== ENCOUNTER → 2021-06-24 08:27 | Outpatient (CLI) | payer MEDICARE, MEDICAID, SELFPAY ==
[2021-06-24 09:43] LABS: Vitamin B12 249 pg/mL (211-911)
[2021-06-24 09:50] LABS: Anion Gap 8 (5-15); BUN 7 mg/dL (7-18); BUN/Creat Ratio 6.1 RATIO (10-20); Calcium,Total 9.2 mg/dL (8.5-10.1); Chloride 104 mmol/L (98-107); Creatinine, Serum 1.14 mg/dL (0.55-1.02); EST Glomerular Filtration Rate 51 mL/min (>60); Est Glom Filt Rate - Afr Amer 61 mL/min (>60); Glucose 233 mg/dL (74-106); Potassium 3.4 mmol/L (3.5-5.1); Sodium Level 136 mmol/L (136-145); T4 Free Direct 1.04 ng/dL (0.76-1.46); Thyroid Stim Hormone (TSH) 1.86 uIU/mL (0.358-3.74)
[2021-06-25 08:26] LABS: Thyroid Peroxidase AB 165 IU/mL (0-34)
== END ==
PROVIDERS: PCP Nurse Practitioner Adult Health; Visit Provider Nurse Practitioner Adult Health
DX: E03.9 Hypothyroidism, unspecified (principal)
CPT/HCPCS: 36415; 80048; 82607; 84439; 84443; 86376

== ENCOUNTER 2021-10-29 09:20 | Outpatient (CLI) | payer MEDICARE, MEDICAID, SELFPAY ==
--- NOTE | 2021-10-29 09:25 | BD_ITS ---
STUDY: DUAL ENERGY X-RAY ABSORPTIOMETRY / DXA REASON FOR EXAM: Female, 66 years old. [id number]. The patient is postmenopausal. TECHNIQUE: Bone Mineral Density (BMD) measurements of lumbar spine and bilateral hips were obtained. COMPARISON: Comparison is made with prior study dated 10/16/2019. FINDINGS: Lumbar Spine (L1-L4): g/cm2 (1.055) / T-score (0.1) / Z-score (1.9) Findings are suggestive of normal bone density with a low fracture risk. Left Femur Total: g/cm2 (0.895) / T-score (-0.4) / Z-score (0.9) Left Femoral Neck: g/cm2 (0.840) / T-score (-0.1) / Z-score (1.5) Right Femur Total: g/cm2 (0.821) / T-score (-1.0) / Z-score (0.3) Right Femoral Neck: g/cm2 (0.801) / T-score (-0.4) / Z-score (1.2) The T-Scores on the most recent prior examination were: Lumbar Spine (L1-L4): There has been worsening of bone density since the previous examination. Left Femur Total: which represents a worsening of 4.5%. Right Femur Total: which represents a worsening of 8.1%. BD/Dexa Bone Density Study IMPRESSION: The patient is considered normal as outlined below according to World [place] Organization (WHO) criteria with a low fracture risk. There has been worsening of bone density since the previous examination. Reference Information: The T-score is the number of standard deviations above or below the standard which is normal for young adults at their peak bone mineral density. The World Health Organization (WHO) interprets the T-scores as follows: Above -1 Normal bone density Between -1 and -2.5 Osteopenia Equal to / or below -2.5 Osteoporosis As a practical clinical guideline, osteopenia may be graded as follows: Mild -1 through -1.5 Moderate -1.6 through -2.0 Severe -2.1 through -2.4 The Z-score is the number of standard deviations above or below age-matched controls. A Z-score of less than -1.5 would be considered abnormal. References: 1. NIH Osteoporosis and Related Bone Diseases www osteo.org 2. International Society for Clinical Densitometry www iscd.org 3. National Osteoporosis Foundation www nof.org Electronically Signed: hCavo Larios MD at 12:01 EST , Service support ,
== END 2021-10-29 23:59 | disposition short-term general hospital (02) ==
LOC: OPBD 09:21
PROVIDERS: PCP Nurse Practitioner Adult Health; Visit Provider Nurse Practitioner Adult Health
DX: M81.0 Age-related osteoporosis without current pathological fracture (principal)
CPT/HCPCS: 77080

== ENCOUNTER 2021-12-21 09:57 | Outpatient (CLI) | payer MEDICARE, MEDICAID, SELFPAY ==
[2021-12-21 12:02] LABS: ALB/GLOB Ratio 1.1 RATIO (0.9-2.4); AST(SGOT) 13 U/L (15-37); Alanine Aminotransfer ALT/SGPT 13 U/L (13-56); Alkaline Phosphatase 82 U/L (45-117); Anion Gap 11 (5-15); BUN 17 mg/dL (7-18); BUN/Creat Ratio 9.8 RATIO (10-20); Calcium,Total 8.7 mg/dL (8.5-10.1); Chloride 95 mmol/L (98-107); Cholesterol 189 mg/dL (200); Creatinine, Serum 1.74 mg/dL (0.55-1.02); EST Glomerular Filtration Rate 31 mL/min (>60); Est Glom Filt Rate - Afr Amer 38 mL/min (>60); Globulin 3.5 g/dL (2.2-4.2); Glucose 104 mg/dL (74-106); High Density Lipoprotein 64 mg/dL; Potassium 3.8 mmol/L (3.5-5.1); Protein, Total 7.5 g/dL (6.4-8.2); Sodium Level 127 mmol/L (136-145); Triglycerides 184 mg/dL; Very Low Density Lipoprotein 37 mg/dL (5-40)
[2021-12-21 12:03] LABS: Vitamin B12 607 pg/mL (211-911)
== END 2021-12-21 23:59 | disposition home or self-care (01) ==
LOC: LAB 09:59
PROVIDERS: Referring Provider Nurse Practitioner Adult Health; Visit Provider Nurse Practitioner Adult Health
DX: E11.9 Type 2 diabetes mellitus without complications (principal)
CPT/HCPCS: 36415; 80053; 80061; 82607

== ENCOUNTER 2021-12-24 09:09 | Outpatient (CLI) | payer MEDICARE, MEDICAID, SELFPAY ==
[2021-12-24 11:32] LABS: Urine Sodium 41 mmol/L (Not Establ.)
== END 2021-12-24 23:59 | disposition home or self-care (01) ==
LOC: LAB 09:11
DX: E87.1 Hypo-osmolality and hyponatremia (principal)
CPT/HCPCS: 84300

== ENCOUNTER 2021-12-28 10:18 | Outpatient (CLI) | payer MEDICARE, MEDICAID, SELFPAY ==
[2021-12-28 10:34] LABS: Absolute Lymphocyte Count 3.13 X10^3/uL (0.83-4.51); Absolute Neutrophil Count 4.4 X10^3/uL (2.0-7.7); Basophil# 0.08 X10^3/uL; Basophil% 0.9 % (0-1); Eosinophil# 0.45 X10^3/uL; Eosinophils% 5.2 % (0-5); Hematocrit 32.8 % (37-47); Hemoglobin 11.4 g/dL (12.0-15.0); Lymphocyte # 3.13 X10^3/ul (0.83-4.51); Lymphocyte % 35.9 % (19-41); Mean Corp Hgb Conc 34.8 g/dL (32-36); Mean Corpuscular Volume 95.1 fL (81-99); Mean Platelet Vol. 9.3 fl (6.2-12.0); Monocyte# 0.61 X10^3/uL; NRBC Flagged by Analyzer 0 % (0-5); Neutrophil % 50.5 % (47-70); Platelet Count 257 K/mm3 (150-450); RBC Distribution Width CV 11.5 % (11.6-14.6); RBC Distribution Width SD 39.3 fl (35.1-43.9); Red Blood Count 3.45 M/mm3 (4.2-5.4); White Blood Count 8.7 K/mm3 (4.4-11.0)
[2021-12-28 10:57] LABS: Anion Gap 5 (5-15); BUN 14 mg/dL (7-18); BUN/Creat Ratio 11.2 RATIO (10-20); Calcium,Total 10.3 mg/dL (8.5-10.1); Chloride 108 mmol/L (98-107); Creatinine, Serum 1.25 mg/dL (0.55-1.02); EST Glomerular Filtration Rate 46 mL/min (>60); Est Glom Filt Rate - Afr Amer 55 mL/min (>60); Glucose 151 mg/dL (74-106); Potassium 4.6 mmol/L (3.5-5.1); Sodium Level 138 mmol/L (136-145)
== END 2021-12-28 23:59 | disposition home or self-care (01) ==
LOC: LAB 10:20
PROVIDERS: Referring Provider Nurse Practitioner Adult Health; Visit Provider Nurse Practitioner Adult Health
DX: E11.9 Type 2 diabetes mellitus without complications (principal); D64.9 Anemia, unspecified; E87.1 Hypo-osmolality and hyponatremia
CPT/HCPCS: 36415; 80048; 85025

== ENCOUNTER → 2022-02-19 | Outpatient (CLI) | payer MEDICARE, MEDICAID, SELFPAY | END | disposition home or self-care (01) | LOC: LABSPEC 08:37 | DX: D64.9 Anemia, unspecified (principal) | CPT/HCPCS: 82274 ==

== ENCOUNTER → 2022-03-18 | Outpatient (CLI) | payer MEDICARE, MEDICAID, SELFPAY ==
[2022-03-18 10:31] LABS: Absolute Lymphocyte Count 2.45 X10^3/uL (0.83-4.51); Basophil# 0.07 X10^3/uL; Basophil% 1.1 % (0-1); Eosinophil# 0.44 X10^3/uL; Eosinophils% 6.7 % (0-5); Hematocrit 33.2 % (37-47); Hemoglobin 11.3 g/dL (12.0-15.0); Lymphocyte # 2.45 X10^3/ul (0.83-4.51); Lymphocyte % 37.5 % (19-41); Mean Corpuscular Hgb 32.4 pg (27.0-32.0); Mean Corpuscular Volume 95.1 fL (81-99); Mean Platelet Vol. 9.4 fl (6.2-12.0); Monocyte# 0.51 X10^3/uL; Monocyte% 7.8 % (0-10); NRBC Flagged by Analyzer 0 % (0-5); Neutrophil # 3.04 X10^3/uL (2.7-7.7); Neutrophil % 46.6 % (47-70); Platelet Count 252 K/mm3 (150-450); RBC Distribution Width CV 11.9 % (11.6-14.6); Red Blood Count 3.49 M/mm3 (4.2-5.4); White Blood Count 6.5 K/mm3 (4.4-11.0)
[2022-03-18 11:10] LABS: ALB/GLOB Ratio 1.1 RATIO (0.9-2.4); AST(SGOT) 16 U/L (15-37); Alanine Aminotransfer ALT/SGPT 19 U/L (13-56); Albumin, Serum 3.8 g/dL (3.2-5.0); Alkaline Phosphatase 94 U/L (45-117); Anion Gap 11 (5-15); BUN 19 mg/dL (7-18); Calcium,Total 9.1 mg/dL (8.5-10.1); Chloride 104 mmol/L (98-107); Creatinine, Serum 1.46 mg/dL (0.55-1.02); EST Glomerular Filtration Rate 38 mL/min (>60); Est Glom Filt Rate - Afr Amer 46 mL/min (>60); Globulin 3.5 g/dL (2.2-4.2); Glucose 165 mg/dL (74-106); Potassium 3.8 mmol/L (3.5-5.1); Protein, Total 7.3 g/dL (6.4-8.2); Sodium Level 138 mmol/L (136-145)
== END | disposition home or self-care (01) ==
LOC: LAB 10:07
DX: E11.9 Type 2 diabetes mellitus without complications (principal)
CPT/HCPCS: 36415; 80053; 85025

== ENCOUNTER → 2022-04-14 | Outpatient (CLI) | payer MEDICARE, MEDICAID, SELFPAY ==
--- NOTE | 2022-04-14 09:07 | BI_ITS ---
MAMMOGRAPHY - BILATERAL SCREENING REASON FOR EXAM: Female, 67 years old. Routine annual screening examination. PERTINENT HISTORY: Non-contributory. TECHNIQUE: Digital bilateral breast mara (3D mammographic acquisition) in the CC and MLO projections. 2-D mediolateral oblique (MLO) and craniocaudad (CC) views of both breasts were obtained. CAD: Full Field Digital Mammography with Computer Added Detection was performed. COMPARISON: Comparison mammogram from 03/24/2021, 03/19/2020, 03/13/2019, 02/07/2018. FINDINGS: Breast Composition: There are scattered areas of fibroglandular density. There are no dominant masses or suspicious calcifications. Stable area of asymmetry in the right breast. Stable benign-appearing bilateral calcifications. No other significant abnormalities are identified. There has been no significant change since the prior study. BI/SCRN MAMM (CAD)W/MARA BILAT IMPRESSION: Stable bilateral screening mammogram. Yearly follow-up mammogram recommended. (A) ASSESSMENT CATEGORY: BIRADS Category 2: Benign. A letter regarding these results will be sent to the patient by the facility within 30 days. Approximately 10% of breast cancers are not detected by mammography. A normal mammogram should not delay biopsy of a clinically suspicious abnormality. [id number] Electronically Signed: Chris Burgess, at 12:53 EDT ,
== END | disposition home or self-care (01) ==
LOC: OPBI 09:05
PROVIDERS: Visit Provider Nurse Practitioner Adult Health
DX: Z12.31 Encounter for screening mammogram for malignant neoplasm of breast (principal)
CPT/HCPCS: 77063; 77067

== ENCOUNTER → 2022-04-27 | Outpatient (CLI) | payer MEDICARE, MEDICAID, SELFPAY ==
--- NOTE | 2022-04-27 12:03 | US_ITS ---
STUDY: RENAL ULTRASOUND - COMPLETE REASON FOR EXAM: Female, 67 years old. CKD TECHNIQUE: Ultrasound evaluation of the kidneys was performed with real-time and static horan-scale imaging. COMPARISON: 12.06.20 ct FINDINGS: RIGHT KIDNEY: Normal location of the right kidney, which is normal in size. The right kidney measures 9.3 x 5 cm. There is diffuse thinning of the renal cortex. The renal cortex measures 0 point cm. There is no right renal mass or cyst. There are no right renal calculi. There is no right hydronephrosis. DISTAL RIGHT URETER: There is non-visualization of the distal right ureter. There is no demonstrated right ureterovesical junction calculus. There is a visualized right ureteral jet. LEFT KIDNEY: Normal location of the left kidney, which is normal in size. The left kidney measures 8.7 x 4.6 cm. There is diffuse thinning of the renal cortex. The renal cortex measures 0.92 cm. There is no left renal mass or cyst. There are no left renal calculi. There is no left hydronephrosis. DISTAL LEFT URETER: There is non-visualization of the distal left ureter. There is no demonstrated left ureterovesical junction calculus. There is a visualized left ureteral jet. AORTA: There is obscuration of the abdominal aorta by overlying bowel gas I.V.C.: The IVC is obscured. BLADDER: The distended urinary bladder has a volume of 390 ml. The empty urinary bladder has a volume of 0 ml. There is a normal wall thickness of the distended urinary bladder. There is no demonstrated mass within the urinary bladder. There are no demonstrated bladder calculi. US/Kidney and Bladder IMPRESSION: There are no acute findings. Electronically Signed: Amor Rabago MD at 18:13 EDT ,
== END | disposition home or self-care (01) ==
LOC: US 12:02
PROVIDERS: Referring Provider Internal Medicine Nephrology; Visit Provider Internal Medicine Nephrology
DX: N18.32 Chronic kidney disease, stage 3b (principal)
CPT/HCPCS: 76770

== ENCOUNTER 2022-05-29 18:22 | Emergency (ER) | payer MEDICARE, MEDICAID, SELFPAY ==
[2022-05-29 18:24] VITALS: BP 146/79; PULSE 96; RESP 16; TEMP 36.8; O2SAT 100; BMI 23.1
--- NOTE | 2022-05-29 18:37 | EDS_ITS ---
HPI History of Present Illness Chief Complaint: Lower Extremity Injury Narrative Narrative: 67-year-old female presenting with left foot pain. States on the lateral aspect of her left foot. She states that yesterday she was standing in the dog ran into her miller and she felt like her leg came off under her and she fell striking the left foot on the ground. She has been ambulatory since then with antalgic gait. She took 1 dose of ibuprofen yesterday. She is been trying to walk it off but is not improving. No numbness or tingling. No lacerations or abrasions. She states that her miller and her ankle do not hurt. [facility] Medical History (Updated 05/29/22 @ 19:[address] Kranthi Mcdonald, DO) Arthritis Diabetes Dysphagia GERD (gastroesophageal reflux disease) HTN (hypertension) Thyroid disease Home Medications ascorbic acid (vitamin C) 500 mg tablet 500 mg PO DAILY@0800 vitamin 09/26/16 [History Last Taken 09/26/16] cholecalciferol (vitamin D3) 25 mcg (1,000 unit) tablet 2,000 unit PO DAILY vitamin 09/26/16 [History Last Taken 09/25/16] ferrous sulfate 325 mg (65 mg iron) tablet 325 mg PO BID supplement 09/26/16 [History Last Taken 09/26/16] lisinopril 5 mg tablet 5 mg PO DAILY blood pressure 09/26/16 [History Last Taken 09/26/16] loratadine 10 mg tablet 10 mg PO DAILY allergies 09/26/16 [History Last Taken 09/26/16] metformin 500 mg tablet 500 mg PO BIDCM diabetes 09/26/16 [History Last Taken 09/26/16] pravastatin 20 mg tablet 20 mg PO QHS cholesterol 09/26/16 [History Last Taken 09/25/16] gabapentin 300 mg capsule 300 mg PO QHS nerve pain 12/06/20 [History Last Taken Unknown] pantoprazole 40 mg tablet,delayed release 40 mg PO DAILY #60 tabs 12/09/20 [Rx Last Taken Unknown] hydrocodone-acetaminophen 5-325mg 5mg-325mg 1 tab PO Q6H PRN pain 3 days #10 tabs 05/29/22 [Rx Last Taken Unknown] Allergy/AdvReac Type Severity Reaction Status Date / Time No Known Allergies Allergy Verified 12/30/20 12:54 Surgical History History of cholecystectomy History of tubal ligation Social History (Updated 12/30/20 @ 14:[address] Byron Corona MD) Smoking Status: Never smoker ROS ROS ED Constitutional Constitutional ED: Denies chills or fever(s) Eyes Eyes: Denies change in vision ENT ENT ED: Denies rhinorrhea or sore throat Cardiovascular Cardiovascular: Denies chest pain or palpitations Respiratory/Chest Respiratory/Chest: Denies cough or dyspnea Gastrointestinal Gastrointestinal: Denies abdominal pain or constipation Genitourinary Genitourinary ED: Denies dysuria or hematuria Musculoskeletal Musculoskeletal: Reports other Details: Left foot pain Integumentary Denies abscess or Abrasions Neurologic Neurologic: Denies headache(s) or paresthesias Psychiatric Psychiatric: Denies anxiety or depression EXAM Physical Exam Const Vital Signs: 05/29/22 18:24 Temperature 98.3 F Temperature Source Temporal Pulse Rate 96 Respiratory Rate 16 Blood Pressure 146/79 H Blood Pressure Mean 101 Pulse Ox 100 Oxygen Delivery Method Room Air Positive well nourished General Appearance ED: NAD HEENT Reports moist mucous membranes normocephalic and atraumatic Eyes PERRL Neck full ROM Resp normal respiratory effort Cardio regular rate and regular rhythm Extremity Extremity Narrative: Tenderness to palpation left foot at the lateral aspect. This is near the base of the fifth metatarsal. No obvious deformity. There is some redness and swelling here. Left foot neurovascular intact brisk cap refill to all 5 toes Neuro oriented x3 and CN's II-XII intact bilaterally Sensorium / Orientation: alert Motor Exam: strength 5/5 throughout Psych mental status grossly normal MDM MDM MDM Narrative Medical decision making narrative: Patient given ibuprofen. X-ray the left foot is obtained. On my interpretation there is 1/5 metatarsal fracture without angulation or significant displacement. The radiologist does agree and states there may be intra-articular extension. Patient counseled on findings. She is put in a walking boot and given crutches. I spoke with Dr. Carranza who recommended strict nonweightbearing for a week and he will see her in office. Patient given [employer] for home as needed. She is counseled to consider use Tylenol and ibuprofen as needed. Return precautions discussed. Impression: 1. Mechanical fall 2. Base of the fifth metatarsal fracture left foot Lab Data Attestation: I reviewed the patient's lab results. Radiography Diagnostic Testing: Clinical Impression(s) from Imaging Studies Foot X-Ray 05/29/22 18:48 IMPRESSION: Fifth metatarsal base fracture with suspected intra-articular extension. Electronically Signed: Chay Moore MD at 19:13 EDT Reading Location ID and State: [facility] / [place] Tel , Service support , Discharge Plan Triage Chief Complaint: Lower Extremity Injury ED Provider: Kranthi Mcdonald Dx/Rx/DC Orders Instructions: Fifth Metatarsal Fx Prescriptions: New hydrocodone-acetaminophen 5-325 mg tablet 1 tab PO Q6H PRN (Reason: pain) 3 Days Qty: 10 0RF No Action metformin 500 MG tablet 500 mg PO BIDCM ascorbic acid (vitamin C) 500 MG tablet 500 mg PO DAILY@0800 ferrous sulfate 325 MG tablet 325 mg PO BID pravastatin 20 MG tablet 20 mg PO QHS lisinopril 5 MG tablet 5 mg PO DAILY loratadine 10 MG tablet 10 mg PO DAILY cholecalciferol (vitamin D3) 1,000 UNIT tablet 2,000 unit PO DAILY gabapentin 300 MG capsule 300 mg PO QHS pantoprazole 40 MG tablet 40 mg PO DAILY Qty: 60 0RF Primary Care Provider: [facility] Eunice Zapien Referrals: Ciro Carranza DPM [Med Staff - Active Staff] [facility] - Disposition Disposition: Home, Self Care
[2022-05-29] MEDS: Ibuprofen 600 MG Tablet PO (18:45)
--- NOTE | 2022-05-29 18:48 | RAD_ITS ---
STUDY: X-RAY - LEFT FOOT CLINICAL: Female, 67 years old. Pain TECHNIQUE: 3 view(s) of the foot. COMPARISON: None. FINDINGS: Normal talus, calcaneus, and tarsal bones. Normal visualized subtalar, talonavicular, calcaneocuboid, tarsal and tarsometatarsal articulations. Fifth metatarsal base nondisplaced fracture with suspected involvement of the cuboid articular surface. There is moderate degenerative arthrosis of the metatarsophalangeal joint of the hallux . Normal tibial and fibular sesamoid bones. Normal interphalangeal joint of the great toe. Normal phalanges of the great toe. Normal second through fifth metatarsophalangeal joints. Normal interphalangeal joints and phalanges of the lesser toes. The soft tissue structures are unremarkable. RAD/Foot min 3 Views IMPRESSION: Fifth metatarsal base fracture with suspected intra-articular extension. Electronically Signed: Chay Moore MD at 19:13 EDT ,
[2022-05-29 19:55] VITALS: RESP 18
== END 2022-05-29 19:56 | disposition home or self-care (01) ==
PROVIDERS: Emergency Provider Student in an Organized Health Care Education/Training Program; Visit Provider Student in an Organized Health Care Education/Training Program
DX: S92.352A Displaced fracture of fifth metatarsal bone, left foot, initial encounter for closed fracture (principal); E11.9 Type 2 diabetes mellitus without complications; W54.1XXA Struck by dog, initial encounter; W18.39XA Other fall on same level, initial encounter; Y93.89 Activity, other specified; I10 Essential (primary) hypertension; M19.90 Unspecified osteoarthritis, unspecified site; Z79.84 Long term (current) use of oral hypoglycemic drugs; Z79.899 Other long term (current) drug therapy
CPT/HCPCS: 73630; 99284

== ENCOUNTER → 2022-06-04 | Outpatient (CLI) | payer MEDICARE, MEDICAID, SELFPAY ==
[2022-06-04 10:05] LABS: Hematocrit 34.6 % (37-47); Mean Corp Hgb Conc 34.7 g/dL (32-36); Mean Corpuscular Hgb 32.2 pg (27.0-32.0); Mean Corpuscular Volume 92.8 fL (81-99); Mean Platelet Vol. 10.2 fl (6.2-12.0); Platelet Count 266 K/mm3 (150-450); RBC Distribution Width CV 11.3 % (11.6-14.6); Red Blood Count 3.73 M/mm3 (4.2-5.4); White Blood Count 7.3 K/mm3 (4.4-11.0)
[2022-06-04 10:17] LABS: Creatinine, Urine (random) < 13.00 mg/dL (NO RANGE EST.); Protein, Urine (Random) < 6.0 mg/dL (<11.9)
[2022-06-04 10:59] LABS: ALB/GLOB Ratio 0.9 RATIO (0.9-2.4); AST(SGOT) 27 U/L (15-37); Alanine Aminotransfer ALT/SGPT 27 U/L (13-56); Albumin, Serum 3.7 g/dL (3.2-5.0); Alkaline Phosphatase 158 U/L (45-117); Anion Gap 9 (5-15); BUN 17 mg/dL (7-18); BUN/Creat Ratio 11.6 RATIO (10-20); Calcium,Total 9.5 mg/dL (8.5-10.1); Chloride 92 mmol/L (98-107); Creatinine, Serum 1.47 mg/dL (0.55-1.02); EST Glomerular Filtration Rate 38 mL/min (>60); Est Glom Filt Rate - Afr Amer 46 mL/min (>60); Glucose 534 mg/dL (74-106); Potassium 4.3 mmol/L (3.5-5.1); Protein, Total 7.7 g/dL (6.4-8.2); Sodium Level 127 mmol/L (136-145)
[2022-06-07 22:09] LABS: PROEL- A/G Ratio 1.4 (0.7-1.7); PROEL- Albumin 4.1 g/dL (2.9-4.4); PROEL- Alpha-1 Globulin 0.2 g/dL (0.0-0.4); PROEL- Alpha-2 Globulin 0.9 g/dL (0.4-1.0); PROEL- Beta Globulin 0.9 g/dL (0.7-1.3); PROEL- Gamma Globulin 1.1 g/dL (0.4-1.8); PROEL- TOTAL PROTEIN 7.1 g/dL (6.0-8.5)
[2022-06-08 09:31] LABS: Anti-dsDNA Ab 5 IU/mL (0-9)
[2022-06-08 15:54] LABS: Complement C3 148 mg/dL (82-167)
== END | disposition home or self-care (01) ==
LOC: LAB 08:37
PROVIDERS: Referring Provider Internal Medicine Nephrology; Visit Provider Internal Medicine Nephrology
DX: N18.32 Chronic kidney disease, stage 3b (principal); D63.1 Anemia in chronic kidney disease
CPT/HCPCS: 36415; 80053; 82570; 84156; 84165; 85027; 86160; 86225

== ENCOUNTER → 2022-06-24 | Outpatient (CLI) | payer MEDICARE, MEDICAID, SELFPAY ==
[2022-06-24 11:51] LABS: AST(SGOT) 28 U/L (15-37); Alanine Aminotransfer ALT/SGPT 27 U/L (13-56); Albumin, Serum 3.8 g/dL (3.2-5.0); Alkaline Phosphatase 130 U/L (45-117); Anion Gap 9 (5-15); BUN 18 mg/dL (7-18); BUN/Creat Ratio 12.2 RATIO (10-20); Calcium,Total 9.8 mg/dL (8.5-10.1); Chloride 100 mmol/L (98-107); Creatinine, Serum 1.47 mg/dL (0.55-1.02); EST Glomerular Filtration Rate 38 mL/min (>60); Est Glom Filt Rate - Afr Amer 46 mL/min (>60); Glucose 146 mg/dL (74-106); Potassium 3.8 mmol/L (3.5-5.1); Protein, Total 7.8 g/dL (6.4-8.2); Sodium Level 135 mmol/L (136-145)
== END | disposition home or self-care (01) ==
LOC: LAB 10:35
PROVIDERS: Referring Provider Nurse Practitioner Adult Health; Visit Provider Nurse Practitioner Adult Health
DX: E11.9 Type 2 diabetes mellitus without complications (principal)
CPT/HCPCS: 36415; 80053

== ENCOUNTER → 2022-08-04 | Outpatient (CLI) | payer MEDICARE, MEDICAID, SELFPAY ==
--- NOTE | 2022-08-04 08:32 | CT_ITS ---
EXAM: CT LEFT LOWER EXTREMITY WITHOUT INTRAVENOUS CONTRAST, FOOT CLINICAL INDICATION: NONDISPLACED FX 5HT METATARSAL L FOOT TECHNIQUE: Helically acquired images were obtained of the left foot without intravenous contrast. This CT exam was performed using one or more of the following dose reduction techniques: automated exposure control, adjustment of the mA and/or kV according to patient size, and/or use of iterative reconstruction technique. This report was created using [employer] medical technology. COMPARISON: X-ray left foot dated 05/29/2022 FINDINGS: BONES/JOINTS: There is a nonunion fracture of the base of the fifth metatarsal. There are degenerative changes at the first metatarsophalangeal joint with joint space narrowing and hypertrophy. SOFT TISSUES: Unremarkable. No abnormal contrast enhancement. No radiopaque foreign body. CT/Extremity Lower without Contra IMPRESSION: 1. 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 There is no soft tissue swelling. There are no acute osseous abnormalities. 2. Degenerative changes of the first metatarsophalangeal joint. Electronically Signed: Luis Hernandes MD at 23:24 EDT ,
== END | disposition home or self-care (01) ==
LOC: CT 08:28
PROVIDERS: PCP Nurse Practitioner Adult Health; Visit Provider Podiatrist
DX: S92.355A Nondisplaced fracture of fifth metatarsal bone, left foot, initial encounter for closed fracture (principal)
CPT/HCPCS: 73700

== ENCOUNTER → 2022-10-11 | Outpatient (CLI) | payer MEDICARE, MEDICAID, SELFPAY ==
[2022-10-11 10:26] LABS: Absolute Lymphocyte Count 2.45 X10^3/uL (0.83-4.51); Absolute Neutrophil Count 5.1 X10^3/uL (2.0-7.7); Basophil# 0.09 X10^3/uL; Eosinophil# 0.67 X10^3/uL; Eosinophils% 7.6 % (0-5); Hematocrit 41.9 % (37-47); Hemoglobin 14.2 g/dL (12.0-15.0); Lymphocyte # 2.45 X10^3/ul (0.83-4.51); Lymphocyte % 27.7 % (19-41); Mean Corp Hgb Conc 33.9 g/dL (32-36); Mean Corpuscular Hgb 31.6 pg (27.0-32.0); Mean Corpuscular Volume 93.1 fL (81-99); Mean Platelet Vol. 9.7 fl (6.2-12.0); Monocyte# 0.51 X10^3/uL; Monocyte% 5.8 % (0-10); NRBC Flagged by Analyzer 0 % (0-5); Neutrophil # 5.07 X10^3/uL (2.7-7.7); Neutrophil % 57.4 % (47-70); Platelet Count 290 K/mm3 (150-450); RBC Distribution Width CV 11.8 % (11.6-14.6); RBC Distribution Width SD 40.5 fl (35.1-43.9); White Blood Count 8.8 K/mm3 (4.4-11.0)
[2022-10-11 10:51] LABS: Anion Gap 8 (5-15); BUN 17 mg/dL (7-18); BUN/Creat Ratio 10.4 RATIO (10-20); Calcium,Total 10.1 mg/dL (8.5-10.1); Chloride 103 mmol/L (98-107); Cholesterol 230 mg/dL (200); Creatinine, Serum 1.64 mg/dL (0.55-1.02); EST Glomerular Filtration Rate 33 mL/min (>60); Est Glom Filt Rate - Afr Amer 40 mL/min (>60); Glucose 196 mg/dL (74-106); High Density Lipoprotein 88 mg/dL; Potassium 3.9 mmol/L (3.5-5.1); Sodium Level 136 mmol/L (136-145); Triglycerides 173 mg/dL; Very Low Density Lipoprotein 35 mg/dL (5-40)
== END | disposition home or self-care (01) ==
LOC: LAB 08:33
PROVIDERS: Referring Provider Family Medicine; Visit Provider Family Medicine
DX: E11.9 Type 2 diabetes mellitus without complications (principal)
CPT/HCPCS: 36415; 80048; 80061; 83036; 85025

== ENCOUNTER 2022-12-14 08:30 | Emergency (ER) | payer MEDICARE, MEDICAID, SELFPAY ==
[2022-12-14 08:32] VITALS: BP 119/89; PULSE 87; RESP 18; TEMP 35.9; O2SAT 100
--- NOTE | 2022-12-14 09:03 | CT_ITS ---
STUDY: CT ABDOMEN AND PELVIS WITH CONTRAST REASON FOR EXAM: Female, 67 years old. LLQ pain -- IV PO Contrast. Nausea. RADIATION DOSAGE (If Supplied By Facility): CTDIvol = ( 13.57 ) mGy, DLP = ( 936.98 ) mGycm TECHNIQUE: Transaxial images were obtained from the dome of the diaphragm to the symphysis pubis with oral contrast. Oral and amp; IV Gastrografin and amp; 100mL Isovue-300 was administered. Sagittal and coronal images were reconstructed. Individualized dose optimization techniques were used for this CT. COMPARISON: Comparison is made with prior study dated 12/06/2020. FINDINGS: Stable mild increased markings at the lung bases suggestive of scarring. The visualized portions of the heart are within normal limits. There is decreased attenuation of the liver consistent with steatosis. There are surgical clips in the gallbladder fossa consistent with a prior cholecystectomy. Normal spleen. Normal pancreas. Normal bilateral adrenal glands. Normal right kidney. Normal left kidney. There is a large hiatal hernia composed mostly of the fundus of the stomach. Normal small intestine. There are multiple colonic diverticula consistent with diverticulosis. The appendix is visualized and appears normal. There is scattered atherosclerotic calcification of the abdominal aorta, without a demonstrated aneurysm. Normal inferior vena cava. Normal retroperitoneum. Normal urinary bladder. Normal abdominal wall. There are diffuse degenerative changes of the visualized lumbar spine. CT/Abdomen/Pelvis WITH Contrast IMPRESSION: Sigmoid diverticulosis with no radiographic evidence of diverticulitis at this time. Fatty infiltration of the liver. The patient is status post cholecystectomy. Electronically Signed: Chavo Larios MD at 11:20 EST ,
[2022-12-14 09:04] VITALS: BP 133/76; PULSE 64; RESP 16; TEMP 36.5; O2SAT 96; BMI 26.6
--- NOTE | 2022-12-14 09:05 | EX.ED.DYSGE1 ---
HPI History of Present Illness Chief Complaint: Abd Pain Informant: patient Onset/Context/Timing Onset: Weeks Context: Gradual Onset Timing: Waxes and wanes Narrative Narrative: Patient presents with burning sensation to left lower quadrant for the past couple weeks, worse over the last 3 days. She does report some diarrhea. She has not noted fever or chills. She denies urinary symptoms. [facility] Medical History Arthritis Diabetes Dysphagia GERD (gastroesophageal reflux disease) HTN (hypertension) Thyroid disease Home Medications ascorbic acid (vitamin C) 500 mg tablet 500 mg PO DAILY@0800 vitamin 09/26/16 [History Last Taken 09/26/16] cholecalciferol (vitamin D3) 25 mcg (1,000 unit) tablet 2,000 unit PO DAILY vitamin 09/26/16 [History Last Taken 09/25/16] ferrous sulfate 325 mg (65 mg iron) tablet 325 mg PO BID supplement 09/26/16 [History Last Taken 09/26/16] lisinopril 5 mg tablet 5 mg PO DAILY blood pressure 09/26/16 [History Last Taken 09/26/16] loratadine 10 mg tablet 10 mg PO DAILY allergies 09/26/16 [History Last Taken 09/26/16] metformin 500 mg tablet 500 mg PO BIDCM diabetes 09/26/16 [History Last Taken 09/26/16] pravastatin 20 mg tablet 20 mg PO QHS cholesterol 09/26/16 [History Last Taken 09/25/16] gabapentin 300 mg capsule 300 mg PO QHS nerve pain 12/06/20 [History Last Taken Unknown] pantoprazole 40 mg tablet,delayed release 40 mg PO DAILY #60 tabs 12/09/20 [Rx Last Taken Unknown] hydrocodone-acetaminophen 5-325mg 5mg-325mg 1 tab PO Q6H PRN pain 3 days #10 tabs 05/29/22 [Rx Last Taken Unknown] Allergy/AdvReac Type Severity Reaction Status Date / Time No Known Allergies Allergy Verified 12/14/22 08:31 Surgical History History of cholecystectomy History of tubal ligation Social History Smoking Status: Never smoker ROS ROS ED Constitutional Constitutional ED: Denies chills or fever(s) Eyes Eyes: Denies change in vision or discharge from eye(s) ENT ENT ED: Denies discharge from eye(s), rhinorrhea or sore throat Cardiovascular Cardiovascular: Denies chest pain or palpitations Respiratory/Chest Respiratory/Chest: Denies cough or dyspnea Gastrointestinal Gastrointestinal: Reports abdominal pain and diarrhea; Denies nausea or vomiting Genitourinary Genitourinary ED: Denies dysuria Musculoskeletal Musculoskeletal: Denies back pain or extremity pain Integumentary Denies Abrasions or rash Neurologic Neurologic: Denies headache(s) or weakness Psychiatric Psychiatric: Denies anxiety or depression Allergic/Immunologic Allergic/Immunologic ED: Denies lip swelling or urticaria EXAM Physical Exam Const Vital Signs: 12/14/22 08:32 12/14/22 09:04 Temperature 96.7 F L 97.7 F L Temperature Source Temporal Oral Pulse Rate 87 64 Respiratory Rate 18 16 Blood Pressure 119/89 H 133/76 H Blood Pressure Mean 99 95 Pulse Ox 100 96 Oxygen Delivery Method Room Air Room Air Positive well nourished and well developed General Appearance ED: well developed HEENT Reports normocephalic and head/scalp atraumatic Eyes PERRL and EOMs intact bilaterally Neck supple Chest Wall inspection of chest normal and palpation of chest normal Resp normal respiratory effort and clear to auscultation bilaterally Cardio regular rate and regular rhythm GI GI Narrative: Left lower quadrant tenderness to palpation. No guarding or rebound. Auscultation: hypoactive bowel sounds Palpation: soft Extremity normal to inspection Neuro oriented x3 and no sensory deficits noted Sensorium / Orientation: alert Motor Exam: strength 5/5 throughout Psych mental status grossly normal Skin no rashes or lesions noted MDM MDM MDM Narrative Medical decision making narrative: Patient given morphine and Zofran for pain control. Lab work obtained to evaluate for leukocytosis, electrolyte derangement. Urinalysis obtained to rule out UTI. CT scan of the abdomen and pelvis with contrast obtained to evaluate for acute abdominal cause of pain such as diverticulitis. Lab Data Attestation: I reviewed the patient's lab results. Labs: Laboratory Results - last 24 hr 12/14/22 12/14/22 12/14/22 09:15 09:15 09:50 WBC 7.5 RBC 4.18 L Hgb 13.0 Hct 38.3 MCV 91.6 MCH 31.1 MCHC 33.9 RDW Std Deviation 39.1 RDW Coeff of Kyung 11.7 Plt Count 274 MPV 9.0 Immature Gran % (Auto) 0.500 Neut % (Auto) 74.8 H Lymph % (Auto) 16.0 L [place] % (Auto) 4.7 Eos % (Auto) 3.2 Baso % (Auto) 0.8 Absolute Neuts (auto) 5.6 Absolute Lymphs (auto) 1.20 Nucleated RBC % 0 Sodium 139 Potassium 3.8 Chloride 106 Carbon Dioxide 25.0 Anion Gap 8 BUN 13 Creatinine 1.65 H Estim Creat Clear Calc 28.57 Est GFR (MDRD) Af Amer 40 L Est GFR (MDRD) Non-Af 33 L BUN/Creatinine Ratio 7.9 L Glucose 238 H Calcium 10.3 H Urine Color Yellow Urine Clarity Clear Urine pH 6.5 Ur Specific Gate 1.010 Urine Protein Negative Urine Glucose (UA) 1000 H Urine Ketones Negative Urine Occult Blood Negative Urine Nitrite Negative Urine Bilirubin Negative Urine Urobilinogen Normal Ur Leukocyte Esterase Negative Urine RBC 0 SEEN Urine WBC 0 SEEN Ur Squamous Epith Cells 0 SEEN Urine Bacteria 0 SEEN Urine Mucus 0 SEEN Radiography Diagnostic Testing: Clinical Impression(s) from Imaging Studies Abdomen/Pelvis CT 12/14/22 09:03 IMPRESSION: Sigmoid diverticulosis with no radiographic evidence of diverticulitis at this time. Fatty infiltration of the liver. The patient is status post cholecystectomy. Electronically Signed: Chavo Larios MD at 11:20 EST , Treatment and Re-Evaluation Narrative: Repeat evaluation patient resting comfortably. CBC and chemistry studies are largely unremarkable. Creatinine is 1.65 which appears to be near her baseline. Glucose is 238. Urinalysis is unremarkable other than increased urine glucose. CT scan of the abdomen and pelvis reveals diverticulosis with no evidence of diverticulitis at this time. No other acute findings noted. Test results are discussed with patient and family at bedside. She will follow a bland diet and monitor her symptoms. She was given return instructions. She is to follow up with her primary care physician in the next week. Discharge Plan Triage Chief Complaint: Abd Pain ED Provider: Caitie Lipscomb Dx/Rx/DC Orders Clinical Impression: Abdominal pain Instructions: ED Abdominal Pain Unkn Cause Fem Prescriptions: No Action metformin 500 MG tablet 500 mg PO BIDCM ascorbic acid (vitamin C) 500 MG tablet 500 mg PO DAILY@0800 ferrous sulfate 325 MG tablet 325 mg PO BID pravastatin 20 MG tablet 20 mg PO QHS lisinopril 5 MG tablet 5 mg PO DAILY loratadine 10 MG tablet 10 mg PO DAILY cholecalciferol (vitamin D3) 1,000 UNIT tablet 2,000 unit PO DAILY gabapentin 300 MG capsule 300 mg PO QHS pantoprazole 40 MG tablet 40 mg PO DAILY Qty: 60 0RF hydrocodone-acetaminophen 5-325 mg tablet 1 tab PO Q6H PRN (Reason: pain) 3 Days Qty: 10 0RF Primary Care Provider: [facility] Eunice Zapien Referrals: [facility] Eunice Zapien [Primary Care Provider] - 1 Week Disposition Disposition: Home, Self Care
[2022-12-14] MEDS: Morphine 4 MG/ML Syringe IV (09:20)
[2022-12-14] MEDS: Ondansetron 4 MG/2 ML Vial IV (09:20)
[2022-12-14] MEDS: 0.9% Normal Saline 1,000 ML 150 ML IV (09:21)
[2022-12-14 09:22] LABS: Absolute Neutrophil Count 5.6 X10^3/uL (2.0-7.7); Basophil# 0.06 X10^3/uL; Basophil% 0.8 % (0-1); Eosinophil# 0.24 X10^3/uL; Eosinophils% 3.2 % (0-5); Hematocrit 38.3 % (37-47); Mean Corp Hgb Conc 33.9 g/dL (32-36); Mean Corpuscular Hgb 31.1 pg (27.0-32.0); Mean Corpuscular Volume 91.6 fL (81-99); Monocyte# 0.35 X10^3/uL; Monocyte% 4.7 % (0-10); NRBC Flagged by Analyzer 0 % (0-5); Neutrophil # 5.62 X10^3/uL (2.7-7.7); Neutrophil % 74.8 % (47-70); Platelet Count 274 K/mm3 (150-450); RBC Distribution Width CV 11.7 % (11.6-14.6); RBC Distribution Width SD 39.1 fl (35.1-43.9); Red Blood Count 4.18 M/mm3 (4.2-5.4); White Blood Count 7.5 K/mm3 (4.4-11.0)
[2022-12-14 09:33] LABS: Anion Gap 8 (5-15); BUN 13 mg/dL (7-18); BUN/Creat Ratio 7.9 RATIO (10-20); Calcium,Total 10.3 mg/dL (8.5-10.1); Chloride 106 mmol/L (98-107); Creatinine, Serum 1.65 mg/dL (0.55-1.02); EST Glomerular Filtration Rate 33 mL/min (>60); Est Glom Filt Rate - Afr Amer 40 mL/min (>60); Estimated Creatinine Clearance 28.57 ml/min; Glucose 238 mg/dL (74-106); Potassium 3.8 mmol/L (3.5-5.1); Sodium Level 139 mmol/L (136-145)
[2022-12-14 10:02] LABS: Bacteria 0 SEEN /hpf (None Seen); Mucous, Urine 0 SEEN /hpf (<or=2+); Red Blood Cells-Urine 0 SEEN /hpf (0-5); Squamous Epithelial Cells - UA 0 SEEN /hpf (5-10); White Blood Cells 0 SEEN /hpf (0-5)
[2022-12-14 10:13] LABS: Color, Urine Yellow (Yellow); Glucose, Dipstick 1000 mg/dl (Normal); Ketone-Dipstick Negative (Negative); Leukocyte Esterase-Dipstick Negative /ul (Negative); Nitrite-Dipstick Negative (Negative); Occult Blood-Urine Negative /ul (Negative); Protein-Dipstick Negative (Negative); Urine Bilirubin Dipstick Negative (Negative); Urine Clarity Clear (Clear); Urine Urobilinogen Normal (Normal); Urine pH 6.5 (5.0 - 8.0)
== END 2022-12-14 12:39 | disposition home or self-care (01) ==
PROVIDERS: Emergency Provider Emergency Medicine; Visit Provider Emergency Medicine
DX: R10.32 Left lower quadrant pain (principal)
CPT/HCPCS: 74177; 80048; 81001; 85025; 96361; 96374; 96375; 99283; J7030; Q9967; A4216; J2405

== ENCOUNTER → 2022-12-23 | Outpatient (CLI) | payer MEDICARE, MEDICAID, SELFPAY ==
[2022-12-23 11:21] LABS: Mean Corp Hgb Conc 34.2 g/dL (32-36); Mean Corpuscular Hgb 31.2 pg (27.0-32.0); Mean Corpuscular Volume 91.1 fL (81-99); Mean Platelet Vol. 8.9 fl (6.2-12.0); Platelet Count 269 K/mm3 (150-450); RBC Distribution Width CV 11.9 % (11.6-14.6); RBC Distribution Width SD 39.3 fl (35.1-43.9); Red Blood Count 4.17 M/mm3 (4.2-5.4); White Blood Count 8.7 K/mm3 (4.4-11.0)
[2022-12-23 11:58] LABS: ALB/GLOB Ratio 1.1 RATIO (0.9-2.4); AST(SGOT) 15 U/L (15-37); Alanine Aminotransfer ALT/SGPT 16 U/L (13-56); Alkaline Phosphatase 115 U/L (45-117); Anion Gap 8 (5-15); BUN 13 mg/dL (7-18); BUN/Creat Ratio 8.5 RATIO (10-20); Calcium,Total 9.8 mg/dL (8.5-10.1); Chloride 104 mmol/L (98-107); Creatinine, Serum 1.53 mg/dL (0.55-1.02); EST Glomerular Filtration Rate 36 mL/min (>60); Est Glom Filt Rate - Afr Amer 43 mL/min (>60); Globulin 3.8 g/dL (2.2-4.2); Glucose 189 mg/dL (74-106); Potassium 3.6 mmol/L (3.5-5.1); Protein, Total 7.8 g/dL (6.4-8.2); Sodium Level 138 mmol/L (136-145)
== END | disposition home or self-care (01) ==
LOC: LAB 11:09
PROVIDERS: Referring Provider Nurse Practitioner Family; Visit Provider Nurse Practitioner Family
DX: R10.9 Unspecified abdominal pain (principal)
CPT/HCPCS: 36415; 80053; 85027

== ENCOUNTER → 2022-12-27 | Outpatient (CLI) | payer MEDICARE, MEDICAID, SELFPAY ==
[2022-12-27 10:24] LABS: Creatinine, Urine (random) < 13.00 mg/dL (NO RANGE EST.); Protein, Urine (Random) < 6.0 mg/dL (<11.9)
[2022-12-27 10:43] LABS: Anion Gap 9 (5-15); BUN 13 mg/dL (7-18); Calcium,Total 9.7 mg/dL (8.5-10.1); Chloride 103 mmol/L (98-107); Creatinine, Serum 1.63 mg/dL (0.55-1.02); EST Glomerular Filtration Rate 33 mL/min (>60); Est Glom Filt Rate - Afr Amer 40 mL/min (>60); Glucose 217 mg/dL (74-106); Potassium 3.5 mmol/L (3.5-5.1); Sodium Level 136 mmol/L (136-145)
== END | disposition home or self-care (01) ==
LOC: LAB 09:09
PROVIDERS: Referring Provider Internal Medicine Nephrology; Visit Provider Internal Medicine Nephrology
DX: N18.32 Chronic kidney disease, stage 3b (principal)
CPT/HCPCS: 36415; 80048; 82570; 84156

== ENCOUNTER → 2023-01-20 | Outpatient (CLI) | payer MEDICARE, MEDICAID, SELFPAY ==
--- NOTE | 2023-01-20 08:36 | CT_ITS ---
STUDY: CT ABDOMEN AND PELVIS WITH CONTRAST REASON FOR EXAM: Female, 67 years old. LLQ PAIN. History of diverticulitis. RADIATION DOSAGE (If Supplied By Facility): CTDIvol = ( 14.68 ) mGy, DLP = ( 1084.64 ) mGycm TECHNIQUE: Transaxial images were obtained from the dome of the diaphragm to the symphysis pubis with oral contrast. Oral and amp; IV Readi-CAT and amp; 100mL Isovue-300 was administered. Sagittal and coronal images were reconstructed. Individualized dose optimization techniques were used for this CT. COMPARISON: Comparison is made with prior study dated December 14, 2022. FINDINGS: The visualized lung bases are unremarkable. The visualized portions of the heart are within normal limits. There is decreased attenuation of the liver consistent with steatosis. There are surgical clips in the gallbladder fossa consistent with a prior cholecystectomy. Normal spleen. Normal pancreas. Normal bilateral adrenal glands. Normal right kidney. Normal left kidney. There is a large hiatal hernia composed mostly of the fundus of the stomach. Normal small intestine. There are multiple colonic diverticula consistent with diverticulosis. The appendix is visualized and appears normal. There is scattered atherosclerotic calcification of the abdominal aorta, without a demonstrated aneurysm. Normal inferior vena cava. Normal retroperitoneum. Normal urinary bladder. Normal abdominal wall. This space narrowing and degeneration at the L5-S1 level. Minimal anterior listhesis of L4 on L5. CT/Abdomen/Pelvis WITH Contrast IMPRESSION: Sigmoid diverticulosis without radiologic evidence of diverticulitis. Fatty infiltration of the liver. The patient is status post cholecystectomy. Electronically Signed: Chavo Larios MD at 15:44 EDT ,
== END | disposition home or self-care (01) ==
LOC: CT 08:34
PROVIDERS: Referring Provider Nurse Practitioner Family; Visit Provider Nurse Practitioner Family
DX: K57.30 Diverticulosis of large intestine without perforation or abscess without bleeding (principal); K76.0 Fatty (change of) liver, not elsewhere classified; Z90.49 Acquired absence of other specified parts of digestive tract
CPT/HCPCS: 74177; Q9967

== ENCOUNTER 2023-03-01 06:28 | Day surgery (SDC) | payer MEDICARE, MEDICAID, SELFPAY ==
[2023-03-01] VITALS (7 sets, daily range): BP systolic 89–111; BP diastolic 47–78; PULSE 71–90; RESP 16; TEMP 36.4–36.9; O2SAT 96–100; BMI 25.0
[2023-03-01] MEDS: Lactated Ringers 1,000 ML 15 ML IV (06:54)
--- NOTE | 2023-03-01 07:02 | HP.PCM_ITS ---
History and Physical Date of Admission: 03/01/23 Intake Vital Signs ? 12/14/2307:32 02/09/2309:01 Height 5 ft 4 in 5 ft 3 in Weight: ? 146 lb 8 oz BMI ? 25.9 BP ? 123/79 H Blood Pressure Location ? Rt brachial Position ? Sitting Respiration ? 17 Pulse ? 79 Pulse Source ? Monitor Temp ? 96.5 F L Temp Source ? Temporal Pulse Oximetry (%) ? 99 Oxygen Delivery Method ? room air Intake Visit Reasons:?COLONOSCOPY Chief Complaint: dizziness, n/v Allergies No Known Allergies Allergy (Verified 12/14/22 08:31) PFSH Medical History? Arthritis Diabetes Dysphagia GERD (gastroesophageal reflux disease) HTN (hypertension) Thyroid disease Surgical History? History of cholecystectomy History of tubal ligation Social History? Smoking Status:? Never smoker HPI HPI HPI: Patient is a 67-year-old female with left lower quadrant burning.? She reports is been going on for few months but the last few weeks have been easing up.? She was in the emergency room at the end of December and had a CT scan which was normal.? She denies any blood in her stool.? She says the burning is only in her left lower quadrant nothing makes it worse or better.? She denies fevers or chills.? She has never had diverticulitis that she knows of.? Her last colonoscopy and EGD were in 2017 and were normal. ROS General General: Yes weight change; No appetite, fatigue, colon cancer, breast cancer or weakness HEENT HEENT: No difficulty swallowing, eye injury, eye surgery, swollen glands or hoarseness Endo Endocrine: Yes diabetes mellitus; No thyroid disease, thyroid cancer, Hair loss, heat intolerance or cold intolerance Skin Skin: No rash or changing moles Breast Breast: No left breast lump, right breast lump, nipple discharge, breast pain, abnormal mammogram, abnormal US or breast enlargement Musc Musculoskeletal: Yes arthritis; No back problems, rheumatoid arthritis, gout or joint pain Cardio Cardiovascular: Yes high blood pressure; No murmur, pacemaker, heart disease, atrial fibrillation, heart attack, heart stent, palpitations, shortness of breat with exertion or chest pain Psych Psychiatric: No depression, anxiety or hearing voices Resp Respiratory: No shortness of breath, No sleep apnea, No cough, No COPD, No asthma, No emphysema and No wheezing Gastro Gastrointestinal: Yes abdominal pain, No nausea or vomiting, Yes diarrhea, Yes constipation, No blood in stool, Yes acid reflux, No hemorrhoids, No ulcers, No gallbladder problem and No black,tarry stools Ivan Hematologic: No blood thinners, No blood disorders, No bleeding, No anemia and No blood clots Neuro Neurologic: No system reviewed and no additional complaints, except as d ocumented, No as per HPI, No abnormal gait, No abnormal hearing, No abnormal movements, No abnormal speech, No behavioral changes, No burning sensations, No confusion, No convulsions, No disequilibrium, No dizziness, No localized weakness, No frequent falls, No headache(s), No lack of coordination, No loss of vision, No memory loss, No numbness, No other visual disturbances, No radicular pain, No restless legs, No sensory deficit, No syncope, No tingling, No tremor(s), No weakness and No other Exam Const General: cooperative Orientation: alert and oriented x3 HENMT Head: normal to inspection Neck Neck: normal visual inspection and full ROM Chest Chest palpation & inspection: normal inspection of the chest Resp Effort & Inspection: normal respiratory effort Auscultation: clear to auscultation bilaterally Cardio Rate: regular rate Rhythm: regular rhythm GI Inspection: non-distended Palpation: soft and nontender Skin General: no rashes or lesions noted Neuro General: patient alert and patient oriented x3 Extrem General: full ROM Psych Appearance: grossly normal Mental Status: mental status grossly normal Assessment and Plan Assessment and Plan (1) LLQ abdominal pain: ?Status:?Acute ?Plan: Patient is having burning in the left lower quadrant.? She was sent here for colonoscopy.? She had a CT scan when she was in the emergency room which was normal except for diverticulosis.? Patient had a colonoscopy in 2017 and I doubt we will find much but I did offer her colonoscopy to evaluate her left lower quadrant burning. I explained endoscopy in detail to the patient.? I explained the risks including but not limited to stroke or heart attack with anesthesia, perforation of the GI tract, bleeding, infection.? I explained that any of these could necessitate further emergency surgery.? The patient understands and all questions were answered sufficiently.? The patient wishes to proceed with procedure. I have examined the patient and the H&P has been reviewed. There are no clinical changes since date of exam.
[2023-03-01 07:15] LABS: Bedside Glucose 244 mg/dL (74-106)
--- NOTE | 2023-03-01 07:51 | OP.COLON_ITS ---
Patient Name: Cristina Otero Procedure Date: 03/01/2023 7:09 AM Date of : 1955 Age: 67 Procedure: Colonoscopy Indications: Abdominal pain in the left lower quadrant Providers: Byron Corona MD Referring MD: Byron Corona MD Medicines: Monitored Anesthesia Care Patient Profile: This is a 67 year old female. Refer to note in patient chart for documentation of history and physical. Last Colonoscopy: several years ago. Complications: No immediate complications. Procedure: Pre-Anesthesia Assessment: - Prior to the procedure, a History and Physical was performed, and patient medications and allergies were reviewed. The patient's tolerance of previous anesthesia was also reviewed. The risks and benefits of the procedure and the sedation options and risks were discussed with the patient. All questions were answered, and informed consent was obtained. Prior Anticoagulants: The patient has taken no previous anticoagulant or antiplatelet agents. After reviewing the risks and benefits, the patient was deemed in satisfactory condition to undergo the procedure. After I obtained informed consent, the scope was passed under direct vision. Throughout the procedure, the patient's blood pressure, pulse, and oxygen saturations were monitored continuously. The colonoscope was introduced through the anus and advanced to the cecum, identified by appendiceal orifice and ileocecal valve. The colonoscopy was performed without difficulty. The patient tolerated the procedure well. The quality of the bowel preparation was good. Scope In: 7:28:54 AM Scope Withdrawal Time 0 hours 4 minutes 36 seconds Scope Out: 7:40:18 AM Total Procedure Duration Time 0 hours 11 minutes 24 seconds Findings: Multiple small-mouthed diverticula were found in the entire colon. The exam was otherwise without abnormality on direct and retroflexion views. Impression: - Diverticulosis in the entire examined colon. - The examination was otherwise normal on direct and retroflexion views. - No specimens collected. Recommendation: - Discharge patient to home. - Resume previous diet. - Continue present medications. - Repeat colonoscopy in 10 years for screening purposes. Procedure Code(s): --- Professional --- 05842, Colonoscopy, flexible; diagnostic, including collection of specimen(s) by brushing or washing, when performed (separate procedure) Diagnosis Code(s): --- Professional --- R10.32, Left lower quadrant pain K57.30, Diverticulosis of large intestine without perforation or abscess without bleeding CPT copyright 2017 [employer]. All rights reserved. The codes documented in this report are preliminary and upon electric meter installer helper review may be revised to meet current compliance requirements. Byron Corona MD 03/01/2023 7:50:13 AM This report has been signed electronically. Number of Addenda: 0 Note Initiated On: 03/01/2023 7:09 AM
--- NOTE | 2023-03-01 07:51 | OP.CCLET_ITS ---
03/01/2023 Eunice Peralta [facility] Re : [facility] This procedure was performed on Wednesday, March 01, 2023. My impressions and recommendations are as follows: Impressions : - Diverticulosis in the entire examined colon. - The examination was otherwise normal on direct and retroflexion views. - No specimens collected. Recommendations : - Discharge patient to home. - Resume previous diet. - Continue present medications. - Repeat colonoscopy in 10 years for screening purposes. My findings are described in the full procedure note, which is enclosed. If I can be of further assistance, please feel free to contact me at Doctor phone number(s): , Work: . Sincerely, Byron Corona MD 03/01/2023 7:50:13 AM This report has been signed electronically.
== END 2023-03-01 08:21 | disposition home or self-care (01) ==
LOC: EN 06:29 → AC 06:30
PROVIDERS: Referring Provider Surgery; Visit Provider Surgery
PROC: 0DJD8ZZ Inspection of Lower Intestinal Tract, Via Natural or Artificial Opening Endoscopic (ICD-10-PCS; CPT 45378; principal; 2023-03-01 07:25)
DX: K57.30 Diverticulosis of large intestine without perforation or abscess without bleeding (principal); E11.9 Type 2 diabetes mellitus without complications; R10.32 Left lower quadrant pain; K21.9 Gastro-esophageal reflux disease without esophagitis; I10 Essential (primary) hypertension; E78.00 Pure hypercholesterolemia, unspecified; E61.1 Iron deficiency; Z90.49 Acquired absence of other specified parts of digestive tract; Z79.84 Long term (current) use of oral hypoglycemic drugs; Z79.899 Other long term (current) drug therapy
CPT/HCPCS: 45378; 82962; J7120; J2405

== ENCOUNTER → 2023-04-11 | Outpatient (CLI) | payer MEDICARE, MEDICAID, SELFPAY ==
[2023-04-11 11:54] LABS: Vitamin B12 636 pg/mL (211-911)
== END | disposition home or self-care (01) ==
PROVIDERS: Visit Provider Nurse Practitioner Family
DX: D51.9 Vitamin B12 deficiency anemia, unspecified (principal)
CPT/HCPCS: 36415; 82607

== ENCOUNTER → 2023-04-25 | Outpatient (CLI) | payer MEDICARE, MEDICAID, SELFPAY ==
--- NOTE | 2023-04-25 08:45 | BI_ITS ---
MAMMOGRAPHY - BILATERAL SCREENING REASON FOR EXAM: Female, 68 years old. Routine annual screening examination. PERTINENT HISTORY: Non-contributory. TECHNIQUE: Digital bilateral breast mara (3D mammographic acquisition) in the CC and MLO projections. 2-D mediolateral oblique (MLO) and craniocaudad (CC) views of both breasts were obtained. CAD: Full Field Digital Mammography with Computer Added Detection was performed. COMPARISON: Comparison is made with prior study dated April 14, 2022 and March 24, 2000 FINDINGS: Breast Composition: There are scattered areas of fibroglandular density. There are no dominant masses or suspicious calcifications. Stable asymmetry of breast tissue were more breast tissue is seen in the retroareolar region of the right breast as compared to the left side. Stable small bilateral benign-appearing axillary lymph nodes. No other significant abnormalities are identified. There has been no significant change since the prior study. BI/SCRN MAMM (CAD)W/MARA BILAT IMPRESSION: Stable bilateral screening mammogram. Yearly follow-up mammogram recommended. (A) ASSESSMENT CATEGORY: BIRADS Category 2: Benign. A letter regarding these results will be sent to the patient by the facility within 30 days. Approximately 10% of breast cancers are not detected by mammography. A normal mammogram should not delay biopsy of a clinically suspicious abnormality. [id number] Electronically Signed: Chavo Larios MD at 9:55 EDT ,
== END | disposition home or self-care (01) ==
LOC: OPBI 08:44
PROVIDERS: Referring Provider Nurse Practitioner Family; Visit Provider Nurse Practitioner Family
DX: Z12.31 Encounter for screening mammogram for malignant neoplasm of breast (principal)
CPT/HCPCS: 77063; 77067

== ENCOUNTER → 2024-03-20 | Outpatient (CLI) | payer MEDICARE, MEDICAID, SELFPAY ==
[2024-03-20 12:29] LABS: Absolute Lymphocyte Count 3.59 X10^3/uL (0.83-4.51); Absolute Neutrophil Count 6.3 X10^3/uL (2.0-7.7); Basophil# 0.04 X10^3/uL; Basophil% 0.4 % (0-1); Eosinophil# 0.24 X10^3/uL; Eosinophils% 2.2 % (0-5); Hematocrit 40.5 % (37-47); Hemoglobin 13.9 g/dL (12.0-15.0); Lymphocyte # 3.59 X10^3/ul (0.83-4.51); Lymphocyte % 32.8 % (19-41); Mean Corp Hgb Conc 34.3 g/dL (32-36); Mean Corpuscular Hgb 31.9 pg (27.0-32.0); Mean Corpuscular Volume 92.9 fL (81-99); Mean Platelet Vol. 9.7 fl (6.2-12.0); Monocyte# 0.65 X10^3/uL; Monocyte% 5.9 % (0-10); NRBC Flagged by Analyzer 0 % (0-5); Neutrophil # 6.33 X10^3/uL (2.7-7.7); Neutrophil % 57.7 % (47-70); Platelet Count 310 K/mm3 (150-450); RBC Distribution Width CV 11.6 % (11.6-14.6); RBC Distribution Width SD 39.2 fl (35.1-43.9); Red Blood Count 4.36 M/mm3 (4.2-5.4)
[2024-03-20 12:47] LABS: Vitamin B12 1091 pg/mL (211-911); Vitamin D,25 Hydroxy 58.6 ng/mL
[2024-03-20 12:52] LABS: PTHIN 37.6 pg/mL (18.4-80.1)
[2024-03-20 13:03] LABS: Creatinine, Urine (random) < 13.00 mg/dL (NO RANGE EST.); Protein, Urine (Random) < 6.0 mg/dL (<11.9)
[2024-03-20 13:06] LABS: Albumin, Serum 3.9 g/dL (3.2-5.0); BUN 26 mg/dL (7-18); BUN/Creat Ratio 15.5 RATIO (10-20); Calcium,Total 10.2 mg/dL (8.5-10.1); Chloride 97 mmol/L (98-107); Creatinine, Serum 1.68 mg/dL (0.55-1.02); EST Glomerular Filtration Rate 32 mL/min (>60); Est Glom Filt Rate - Afr Amer 39 mL/min (>60); Glucose 299 mg/dL (74-106); Phosphorus 2.7 mg/dL (2.5-4.9); Potassium 3.9 mmol/L (3.5-5.1); Sodium Level 131 mmol/L (136-145)
== END | disposition home or self-care (01) ==
LOC: BIMLAB 10:19
PROVIDERS: PCP Internal Medicine; Referring Provider Internal Medicine; Visit Provider Internal Medicine
DX: N18.32 Chronic kidney disease, stage 3b (principal)
CPT/HCPCS: 36415; 80069; 82306; 82570; 82607; 83970; 84156; 85025

== ENCOUNTER → 2024-04-27 | Outpatient (CLI) | payer MEDICARE, MEDICAID, SELFPAY ==
--- NOTE | 2024-04-27 08:37 | BI_ITS ---
MAMMOGRAPHY - BILATERAL SCREENING 3-D TOMOSYNTHESIS REASON FOR EXAM: Female, 69 years old. screening PERTINENT HISTORY: No significant family history. TECHNIQUE: 2-D mammograms and 3-D Tomosynthesis of the breast (s) were performed. CAD was performed. COMPARISON: 04/25/2023 FINDINGS: The breast composition is composed of scattered fibroglandular density. Scattered benign calcifications are seen. No dense spiculated masses or suspicious microcalcifications are identified. No architectural distortion is identified. There is no skin thickening or retraction. There has been no significant change since the prior study. No change in bilateral bladder vascular calcifications which can be associated with coronary disease. BI/SCRN MAMM (CAD)W/MARA BILAT IMPRESSION: No mammographic signs of malignancy. Routine yearly mammograms recommended. ASSESSMENT CATEGORY: BIRADS Category 2: Benign. A letter regarding these results will be sent to the patient by the facility within 30 days. FOLLOW UP RECOMMENDATION: Yearly follow up mammogram recommended. (A) Approximately 10% of breast cancers are not detected by mammography. A normal mammogram should not delay biopsy of a clinically suspicious abnormality. Electronically Signed: Jayy Solitario MD at 15:13 EDT ,
== END | disposition home or self-care (01) ==
LOC: OPBI 08:36
PROVIDERS: PCP Internal Medicine; Referring Provider Internal Medicine; Visit Provider Internal Medicine
DX: Z12.31 Encounter for screening mammogram for malignant neoplasm of breast (principal)
CPT/HCPCS: 77063; 77067

== ENCOUNTER → 2024-06-21 | Outpatient (CLI) | payer MEDICARE, MEDICAID, SELFPAY ==
[2024-06-21 12:42] LABS: Protein:Creat Ratio 367 mg/g CRE (0-200)
[2024-06-21 12:43] LABS: Hematocrit 36.6 % (37-47); Hemoglobin 12.3 g/dL (12.0-15.0); Mean Corp Hgb Conc 33.6 g/dL (32-36); Mean Corpuscular Hgb 31.7 pg (27.0-32.0); Mean Corpuscular Volume 94.3 fL (81-99); Mean Platelet Vol. 9.8 fl (6.2-12.0); Platelet Count 243 K/mm3 (150-450); RBC Distribution Width CV 11.4 % (11.6-14.6); RBC Distribution Width SD 39.1 fl (35.1-43.9); Red Blood Count 3.88 M/mm3 (4.2-5.4); White Blood Count 10.8 K/mm3 (4.4-11.0)
[2024-06-21 12:51] LABS: PTHIN 36.8 pg/mL (18.4-80.1)
[2024-06-21 12:53] LABS: Vitamin D,25 Hydroxy 50.2 ng/mL
[2024-06-21 13:53] LABS: Albumin, Serum 3.6 g/dL (3.2-5.0); BUN 34 mg/dL (7-18); BUN/Creat Ratio 19.3 RATIO (10-20); Calcium,Total 9.4 mg/dL (8.5-10.1); Chloride 93 mmol/L (98-107); Creatinine, Serum 1.76 mg/dL (0.55-1.02); EST Glomerular Filtration Rate 30 mL/min (>60); Est Glom Filt Rate - Afr Amer 37 mL/min (>60); Glucose 561 mg/dL (74-106); Phosphorus 2.8 mg/dL (2.5-4.9); Potassium 4.1 mmol/L (3.5-5.1); Sodium Level 127 mmol/L (136-145)
== END | disposition home or self-care (01) ==
PROVIDERS: PCP Internal Medicine; Referring Provider Internal Medicine Nephrology; Visit Provider Internal Medicine Nephrology
DX: N18.32 Chronic kidney disease, stage 3b (principal)
CPT/HCPCS: 36415; 80069; 82306; 82570; 83970; 84156; 85027

== ENCOUNTER → 2024-08-14 | Outpatient (CLI) | payer MEDICARE, MEDICAID, SELFPAY ==
[2024-08-14 10:05] LABS: Absolute Lymphocyte Count 2.01 X10^3/uL (0.83-4.51); Absolute Neutrophil Count 3.3 X10^3/uL (2.0-7.7); Basophil# 0.07 X10^3/uL; Basophil% 1.1 % (0-1); Eosinophil# 0.45 X10^3/uL; Eosinophils% 7.1 % (0-5); Hematocrit 40.6 % (37-47); Lymphocyte # 2.01 X10^3/ul (0.83-4.51); Lymphocyte % 31.5 % (19-41); Mean Corpuscular Hgb 31.3 pg (27.0-32.0); Mean Corpuscular Volume 97.6 fL (81-99); Monocyte# 0.56 X10^3/uL; Monocyte% 8.8 % (0-10); NRBC Flagged by Analyzer 0 % (0-5); Neutrophil # 3.27 X10^3/uL (2.7-7.7); Neutrophil % 51.2 % (47-70); Platelet Count 247 K/mm3 (150-450); RBC Distribution Width CV 11.9 % (11.6-14.6); RBC Distribution Width SD 43.3 fl (35.1-43.9); Red Blood Count 4.16 M/mm3 (4.2-5.4); White Blood Count 6.4 K/mm3 (4.4-11.0)
[2024-08-14 10:36] LABS: ALB/GLOB Ratio 1.1 RATIO (0.9-2.4); AST(SGOT) 19 U/L (15-37); Alanine Aminotransfer ALT/SGPT 14 U/L (13-56); Albumin, Serum 4.1 g/dL (3.2-5.0); Alkaline Phosphatase 104 U/L (45-117); Anion Gap 8 (5-15); BUN 15 mg/dL (7-18); BUN/Creat Ratio 11.5 RATIO (10-20); Calcium,Total 10.2 mg/dL (8.5-10.1); Chloride 105 mmol/L (98-107); Cholesterol 209 mg/dL (200); Creatinine, Serum 1.31 mg/dL (0.55-1.02); EST Glomerular Filtration Rate 43 mL/min (>60); Est Glom Filt Rate - Afr Amer 52 mL/min (>60); Globulin 3.9 g/dL (2.2-4.2); Glucose 147 mg/dL (74-106); High Density Lipoprotein 75 mg/dL; Potassium 3.6 mmol/L (3.5-5.1); Sodium Level 138 mmol/L (136-145); Triglycerides 183 mg/dL; Very Low Density Lipoprotein 37 mg/dL (5-40)
== END | disposition home or self-care (01) ==
LOC: BIMLAB 08:14
PROVIDERS: Nurse Practitioner; PCP Internal Medicine; Visit Provider Internal Medicine
DX: E78.00 Pure hypercholesterolemia, unspecified (principal); E61.1 Iron deficiency
CPT/HCPCS: 36415; 80053; 80061; 85025

== ENCOUNTER → 2024-12-14 | Outpatient (CLI) | payer MEDICARE, MEDICAID, SELFPAY ==
[2024-12-14 09:43] LABS: Hematocrit 36.3 % (37-47); Hemoglobin 11.9 g/dL (12.0-15.0); Mean Corp Hgb Conc 32.8 g/dL (32-36); Mean Corpuscular Hgb 31.3 pg (27.0-32.0); Mean Corpuscular Volume 95.5 fL (81-99); Mean Platelet Vol. 9.1 fl (6.2-12.0); Platelet Count 220 K/mm3 (150-450); RBC Distribution Width CV 12.4 % (11.6-14.6); RBC Distribution Width SD 43.2 fl (35.1-43.9); White Blood Count 7.4 K/mm3 (4.4-11.0)
[2024-12-14 09:59] LABS: Creatinine, Urine (random) < 13.00 mg/dL (NO RANGE EST.); Protein, Urine (Random) < 6.0 mg/dL (<11.9)
[2024-12-14 10:07] LABS: Albumin, Serum 3.6 g/dL (3.2-5.0); BUN 16 mg/dL (7-18); BUN/Creat Ratio 10.7 RATIO (10-20); Calcium,Total 9.8 mg/dL (8.5-10.1); Chloride 101 mmol/L (98-107); EST Glomerular Filtration Rate 37 mL/min (>60); Est Glom Filt Rate - Afr Amer 44 mL/min (>60); Glucose 108 mg/dL (74-106); Phosphorus 3.7 mg/dL (2.5-4.9); Sodium Level 134 mmol/L (136-145)
== END | disposition home or self-care (01) ==
LOC: LAB 09:18
PROVIDERS: PCP Internal Medicine; Referring Provider Internal Medicine Nephrology; Visit Provider Internal Medicine Nephrology
DX: N18.32 Chronic kidney disease, stage 3b (principal)
CPT/HCPCS: 36415; 80069; 82570; 84156; 85027

== ENCOUNTER → 2025-04-29 | Outpatient (CLI) | payer MEDICARE, MEDICAID, SELFPAY | END | disposition home or self-care (01) | LOC: OPBI 07:16 | PROVIDERS: PCP Internal Medicine; Referring Provider Internal Medicine; Visit Provider Internal Medicine | DX: Z12.31 Encounter for screening mammogram for malignant neoplasm of breast (principal) | CPT/HCPCS: 77063; 77067 ==

== ENCOUNTER → 2025-08-15 | Outpatient (CLI) | payer MEDICARE, MEDICAID, SELFPAY ==
[2025-08-15 11:04] LABS: Hematocrit 36.3 % (37-47); Hemoglobin 12.2 g/dL (12.0-15.0); Immature Granulocytes Count 0.040 X10^3/uL (0.0-0.0); Mean Corp Hgb Conc 33.6 g/dL (32-36); Mean Corpuscular Volume 96.3 fL (81-99); Mean Platelet Vol. 9.2 fl (6.2-12.0); NRBC Flagged by Analyzer 0 % (0-5); Platelet Count 213 K/mm3 (150-450); RBC Distribution Width CV 12.3 % (11.6-14.6); RBC Distribution Width SD 42.9 fl (35.1-43.9); Red Blood Count 3.77 M/mm3 (4.2-5.4); White Blood Count 6.3 K/mm3 (4.4-11.0)
[2025-08-15 11:59] LABS: Creatinine, Urine (random) 11.70 mg/dL (28.00-217.00); Microalbumin,Random Urine < 12.0 mg/L (<20 mg/L)
[2025-08-15 12:26] LABS: AST(SGOT) 27 U/L (<=31); Alanine Aminotransfer ALT/SGPT 15 U/L (<=34); Albumin, Serum 4.3 g/dL (3.4-4.8); Alkaline Phosphatase 93 U/L (35-104); Anion Gap 11 (5-15); BUN 17 mg/dL (4-19); BUN/Creat Ratio 11.9 RATIO (10-20); Calcium,Total 9.4 mg/dL (7.6-11.0); Carbon Dioxide 22.7 mmol/L (21.0-32.0); Chloride 102 mmol/L (98-108); Globulin 2.5 g/dL (2.2-4.2); Glucose 120 mg/dL (70-99); Potassium 3.8 mmol/L (3.3-5.1); Vitamin B12 1577 pg/mL (180-914); Vitamin D,25 Hydroxy 73.0 ng/mL (30-100)
[2025-08-15 13:38] LABS: Cholesterol 176 mg/dL (<=200); Low Density Lipoprotein Calc. 75 mg/dL; Triglycerides 144 mg/dL; Very Low Density Lipoprotein 29 mg/dL (5-40); cholesterol:hdl ratio screen 2.30
== END | disposition home or self-care (01) ==
LOC: LAB 10:33
PROVIDERS: PCP Internal Medicine; Referring Provider Internal Medicine; Visit Provider Internal Medicine
DX: E11.22 Type 2 diabetes mellitus with diabetic chronic kidney disease (principal); N18.32 Chronic kidney disease, stage 3b; E53.8 Deficiency of other specified B group vitamins; E55.9 Vitamin D deficiency, unspecified
CPT/HCPCS: 36415; 80053; 80061; 82043; 82306; 82570; 82607; 85025